=== PATIENT | male | born 1935 | race Caucasian/White ===

== ENCOUNTER 2017-08-01 05:39 | Inpatient (IN) | payer OTHER, MEDICARE ==
[~2017-08-01] VITALS: Ht 180.3 cm; Wt 112.2 kg
[~2017-08-01 05:39] MED LIST: ASPIRIN CHILDRE81 MG PO; ASPIRIN81 M4 PO; CO-Q-10 100 MG-1 SGL PO; COUMADIN 3 MG TA3 MG PO; CRESTOR10 M1 PO; FINASTERIDE5 MG PO; FLOMAX0.4 M1 PO; FLU VACCINE 0.0.5 ML IM; HEPARIN-D525000 UNI1 IV; ISOSORBIDE MONO60 MG PO; LASIX40 M1 PO; LISINOPRIL10 M1 PO; LOPRESSOR 12.12.5 MG PO; METFORMIN HCL500 MG PO; METOCLOPRAMIDE10 MG PO; NATURAL IRON65 MG PO; NEXIUM40 M1 PO; PRINIVIL 5MG5 MG PO; RANEXA500 M1 PO; TOPROL XL25 M1 PO; VESICARE10 MG PO; VITAMIN B-121000 MCG PO; WARFARIN SODIUM6 MG PO
--- NOTE | 2017-08-01 06:11 | ED DYSPNEA/ASTHMA COMPLAINT ---
History of Present Illness General Chief Complaint: Dyspnea (COPD, CHF, Other) Stated Complaint: "IM HAVING DIFFICULTY BREATHING" SPO2 82% Source: patient, old records Exam Limitations: no limitations Vital Signs & Intake/Output Vital Signs & Intake/Output Vital Signs Date Time Temp Pulse Resp B/P B/P Pulse O2 O2 Flow FiO2 Mean Ox Delivery Rate 08/01 0615 95 Nasal 3.0L Cannula 08/01 0601 98.4 84 24 124/85 95 Nasal 3.0L Cannula Allergies Coded Allergies: NO KNOWN ALLERGIES (08/28/11) Reconcile Medications Aspirin (Aspirin*) 81 MG TAB.CHEW 81 MG PO DAILY [facility] Coenzyme Q10/Vitamin E (Co-Q-10 100 MG-1 Iu) 1 SGL SGL 1 SGL PO DAILY SUPPLEMENT (Reported) Cyanocobalamin (Vitamin B-12) (Unknown Strength) TAB (Unknown Dose) PO DAILY SUPPLEMENT (Reported) Esomeprazole (Nexium) 40 MG CAPSULE.DR 1 CAP PO DAILY ACID REFLUX (Reported) FERROUS SULFATE (IRON) 325 MG (65 MG IRON) TABLET 1 TAB PO DAILY SUPPLEMENT ( Reported) Finasteride 5 MG TABLET 1 TAB PO DAILY PROSTATE (Reported) Furosemide (Lasix) 40 MG TABLET 1 TAB PO DAILY diuretic Heparin Sodium,Porcine/D5w (Heparin-D5w 25,000 Unit/500 Ml) 25,000 UNIT/500 ML ( 50 UNIT/ML) IV.SOLN 25,000 UNITS IV ONCE cardiac cath Isosorbide Mononitrate [address] 1 TAB PO DAILY CHEST PAIN (Reported) Lisinopril 10 MG TABLET 1 TAB PO DAILY [facility] Metoprolol Succ XL (Toprol XL) 25 MG TAB 25 MG PO DAILY [facility] Ranolazine (Ranexa) 1,000 MG TAB.ER.12H 1 TAB PO BID CHEST PAIN (Reported) Rosuvastatin Calcium (Crestor) 10 MG TABLET 1 TAB PO DAILY CHOLESTEROL ( Reported) Solifenacin Succinate (Vesicare) 10 MG TABLET 1 TAB PO DAILY BLADDER ( Reported) TAMSULOSIN HCL (Tamsulosin Hydrochloride) 0.4 MG CAP.ER.24H 1 CAP PO DAILY PROSTATE (Reported) Core Measure Meds Pre-Hospital coumadin Triage Nurses Notes Reviewed? yes Onset: 3 days Duration: day(s):, continues in ED, getting worse Timing: recent history Severity: moderate, severe Activities at Onset: activity Prior Episodes/Possible Cause: occasional episodes Modifying Factors: Improves With: rest. Worsens With: movement. Associated Symptoms: cough, edema, weakness HPI: 3 days prior to admission patient complains of increasing shortness of breath especially with exertion improved with rest. He also complains of productive cough of green sputum. Several hours prior to admission he was unable to sleep in his recliner with worsening shortness of breath. He denies fever chills nausea vomiting diarrhea abdominal pain chest pain headache dysuria rash bleeding. Past History Travel History Traveled to [place] past 21 day No Medical History Any Pertinent Medical History? 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 Relation not specified for: *No pertinent family history Hx Contributory? Yes Review of Systems Review of Systems Constitutional: Reports: no symptoms. EENTM: Reports: no symptoms. Respiratory: Reports: see HPI, cough, short of breath. Cardiovascular: Reports: no symptoms. GI: Reports: no symptoms. Genitourinary: Reports: no symptoms. Musculoskeletal: Reports: no symptoms. Skin: Reports: no symptoms. Neurological/Psychological: Reports: no symptoms. Hematologic/Endocrine: Reports: no symptoms. Immunologic/Allergic: Reports: no symptoms. All Other Systems: Reviewed and Negative Physical Exam Physical Exam General Appearance: well developed/nourished, alert, awake, anxious, moderate distress, obese Head: atraumatic, normal appearance Eyes: Bilateral: normal appearance, PERRL, EOMI. Ears, Nose, Throat: normal pharynx, normal ENT inspection, hearing grossly normal Neck: normal inspection, supple, full range of motion, no midline tenderness Respiratory: chest non-tender, decreased breath sounds, crackles, respiratory distress Cardiovascular: regular rate/rhythm, normal peripheral pulses, norml femoral pulses equa Peripheral Pulses: 4+ carotid (R), 4+ carotid (L) Gastrointestinal: normal bowel sounds, soft, non-tender, no organomegaly Extremities: normal inspection, normal capillary refill, normal range of motion, pedal edema Neurologic/Psych: no motor/sensory deficits, awake, alert, oriented x 3, normal mood/affect, thoracic surgeon II-XII nml as tested Skin: intact, normal color, warm/dry Lymphatic: no anterior cervical richardson Core Measures ACS in differential dx? Yes No ASA d/t Pharmacological CI CVA/TIA Diagnosis No Sepsis Present: No Sepsis Focused Exam Completed? No Progress Differential Diagnosis: asthma, bronchitis, CHF, COPD, pneumonia Plan of Care: Orders Procedure Date/time Status Regular Diet 08/01 B Active Patient Data 08/01 06 Active OXYGEN SETUP (GEN) 08/01 651 Active Saline Lock 08/01 651 Active Admit to inpatient 08/01 06 Active Vital Signs 08/01 651 Active Activity/Ambulation 08/01 06 Active Code Status 08/01 06 Active TROPONIN LEVEL 08/01 605 Complete PARTIAL THROMBOPLASTIN TIME 08/01 605 Complete PROTHROMBIN TIME 08/01 605 Complete COMPREHENSIVE METABOLIC PANEL 08/01 605 Complete CBC WITHOUT DIFFERENTIAL 08/01 605 Complete B-TYPE NATRIURETIC PEP (BNP) 08/01 06 Complete EKG 08/01 0547 Active Laboratory Tests 08/01/17 0607: Anion Gap 11, Estimated GFR > 60, BUN/Creatinine Ratio 15.0, Glucose 221 H, Calcium 9.1, Total Bilirubin 1.3, AST 16 L, ALT 20 L, Alkaline Phosphatase 56, Troponin I 0.03, Oxc-K-Shlpgvsipls Pept 3850 H, Total Protein 7.3, Albumin 4.0, Globulin 3.3, Albumin/Globulin Ratio 1.2, PT 22.9 H, INR 2.20 H, APTT 42 H, CBC w Diff MAN DIFF ORDERED, RBC 4.45 L, MCV 92.9, MCH 30.4, RDW 16.2 H, MPV 9.4, Gran % 84.4 H, Lymphocytes % 5.4 L, Monocytes % 9.7 H, Eosinophils % 0.3 , Basophils % 0.2, Absolute Granulocytes 9.2 H, Segmented Neutrophils 84 H, Absolute Lymphocytes 0.6 L, Lymphocytes 3 L, Monocytes 13 H, Absolute Monocytes 1.1 H, Absolute Eosinophils 0, Absolute Basophils 0, Platelet Estimate ADEQUATE, Polychromasia 1+, Hypochromic-Microcytic 1+, Ovalocytes FEW, Stomatocytes FEW, PUBS MCHC 32.7 L, Fld Total RBCs Counted 100 Diagnostic Imaging: Viewed by Me: Radiology Read. Discussed w/RAD: Radiology Read. CXR Impression: Mild to moderate interstitial pulmonary edema. Small left pleural effusion and bibasilar airspace opacities. Initial ED EKG: LBBB Prior EKG: unchanged Rhythm Strip: normal sinus rhythm Departure Departure Disposition: STILL A PATIENT Condition: Fair Clinical Impression Primary Impression: CHF (congestive heart failure) Referrals: Parish Gar MD (PCP/Family) Departure Forms: Customer Survey General Discharge Information Admission Note Spoke With: Mickey RODRIGUEZ,Bethany Documentation of Exam: Documentation of any treatments & extenuating circumstances including Concerns Regarding Discharge (functional status, medication knowledge or non-compliance, living conditions, etc.) that warrant an admission rather than observation: Supplemental oxygen IV diuresis medication adjustment serial lab exam cardiac monitoring cardiac rehabilitation continuing care discharge planning Critical Care Note Critical Care Note Critical Care Time: non-applicable
[2017-08-01 06:22] LABS: ABSOLUTE BASOPHIL COUNT 0 /CUMM (0.0-0.2); ABSOLUTE EOSINOPHIL COUNT 0 /CUMM (0.0-0.7); ABSOLUTE GRANULOCYTE CT 9.2 /CUMM (1.4-6.5); ABSOLUTE LYMPH COUNT 0.6 /CUMM (1.2-3.4); ABSOLUTE MONOCYTE COUNT 1.1 /CUMM (0.10-0.60); BASOPHIL % 0.2 % (0.0-2.0); EOSINOPHIL % 0.3 % (0-5); GRANULOCYTE % 84.4 % (42.2-75.2); HEMATOCRIT 41.4 % (42-52); MEAN CORPUSCULAR HGB 30.4 PG (27.0-31.0); MEAN CORPUSCULAR HGB CONC 32.7 G/DL (33.0-37.0); MEAN CORPUSCULAR VOLUME 92.9 FL (80.0-94.0); MEAN PLATELET VOLUME 9.4 FL (7.4-10.4); PLATELET COUNT 261 /CUMM (130-400); RBC DISTRIBUTION WIDTH 16.2 % (11.5-14.5); RED BLOOD CELL CT 4.45 /CUMM (4.70-6.10); WHITE BLOOD CELL COUNT 10.9 /CUMM (4.8-10.8)
[2017-08-01 06:27] LABS: PT 22.9 SEC (9.4-12.5); PTT 42 SEC (25-37)
--- NOTE | 2017-08-01 06:40 | RADIOLOGY REPORT ---
XR PORTABLE CHEST CLINICAL INFORMATION: Shortness of breath and rales. COMPARISON: Chest x-ray April 24, 2017. TECHNIQUE: Portable frontal view of the chest was obtained. FINDINGS: Median sternotomy wires and multiple surgical clips projecting over the mediastinum. There is central vascular congestion with diffuse interstitial opacities and a few curly B lines in the periphery suggesting mild to moderate interstitial pulmonary edema. Small left pleural effusion. Bibasilar airspace opacities. Cardiac silhouette is enlarged and unchanged. No acute osseous findings. Old healed right fourth rib fracture. IMPRESSION: Mild to moderate interstitial pulmonary edema. Small left pleural effusion and bibasilar airspace opacities.
--- NOTE | 2017-08-01 07:45 | History & Physical ---
Keven Randall 08/01/17 0743: General Information and HPI MD Statement: I have seen and personally examined SAM CROOK JR and documented this H&P. The patient is a 82 year old M who presented with a patient stated chief complaint of [dyspnea]. Source of Information: patient, old records Exam Limitations: no limitations History of Present Illness: Mr Crook is an 82 yr old obese, DM and former smoker gentleman presneted with worsening shortness of breath of 3-4 daus duration. He has a PMHx of CAD s/p CABG w/ left ventricular dysfunction ( dx'ed 20 yrs ago), recent hospitalization for acute decompensation of CHF during which he was found to have decreased LVEF of 35-40% and wall motion abnormality at apex; patient was transferred to for Cardiac catheterization; due to " technical/anatomical difficulties" he did not have stent placement and was discharged home on . About one week after patient followed up with Dr. Gertrudis snell in his office; according to patient, director of digital technology was satisfied with his a status; lisinopril was stopped and patient was presumably started on Corlenor ??. He has been at his normal state of health; at his baseline reason active individual (> 4ME physical activity), lives alone, independent; Compliant with his medication. During the past 3-4 days patient became short of breath; mainly exertional; initially short of breath was improving with resting, but for the past 24 hours he has been short of breath even at rest. His shortness of breath limited his physical activity (<4ME); patient noticed worsening swelling of bilateral lower extremities; + orthopnea (has been sleeping in a recliner Jack up or sitting position for the past 24-48 hours), increase in abdominal girth, ?? Weight gain ( last week he rates 265lb), dry cough and subjective wheezing. Patient denies: Chest pain, excess sweating and feeling clammy , palpitation, fever/shaking chills, GI/ symptoms, lightheadedness, dizziness. 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 Patient was found hypoxic to 80%; started on oxygen 4 L; blood pressure 124/85 In the emergency department: Vital signs 124/85; respiration 24; pulse 84 Fluid balance: -1300 mL after receiving 40 mg IV Lasix push Allergies/Medications Allergies: Coded Allergies: NO KNOWN ALLERGIES (NONE 08/01/17) Home Med list Aspirin (Aspirin*) 81 MG TAB.CHEW 81 MG PO DAILY [facility] Coenzyme Q10/Vitamin E (Co-Q-10 100 MG-1 Iu) 1 SGL SGL 1 SGL PO DAILY SUPPLEMENT (Reported) Cyanocobalamin (Vitamin B-12) (Unknown Strength) TAB (Unknown Dose) PO DAILY SUPPLEMENT (Reported) Esomeprazole (Nexium) 40 MG CAPSULE.DR 1 CAP PO DAILY ACID REFLUX (Reported) FERROUS SULFATE (IRON) 325 MG (65 MG IRON) TABLET 1 TAB PO DAILY SUPPLEMENT ( Reported) Finasteride 5 MG TABLET 1 TAB PO DAILY PROSTATE (Reported) Furosemide (Lasix) 40 MG TABLET 1 TAB PO DAILY diuretic Isosorbide Mononitrate [address] 1 TAB PO DAILY CHEST PAIN (Reported) Metoprolol Succ XL (Toprol XL) 25 MG TAB 25 MG PO DAILY [facility] Ranolazine (Ranexa) 1,000 MG TAB.ER.12H 1 TAB PO BID CHEST PAIN (Reported) Rosuvastatin Calcium (Crestor) 10 MG TABLET 1 TAB PO DAILY CHOLESTEROL ( Reported) Solifenacin Succinate (Vesicare) 10 MG TABLET 1 TAB PO DAILY BLADDER ( Reported) TAMSULOSIN HCL (Tamsulosin Hydrochloride) 0.4 MG CAP.ER.24H 1 CAP PO DAILY PROSTATE (Reported) Compliance With Home Meds: GOOD Past History Travel History Traveled to [place] past 21 day No Medical History Neurological: NONE EENT: NONE Cardiovascular: CHF, hypertension, hyperlipidemia Respiratory: pneumonia Gastrointestinal: constipation Hepatic: NONE Renal: NONE Musculoskeletal: NONE Psychiatric: NONE Endocrine: diabetes Blood Disorders: DVT, PE Cancer(s): NONE 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 Relation not specified for: *No pertinent family history Psychosocial History Services at Home: None Functional Ability ADLs Independent: dressing, eating, toileting, bathing. Ambulation: independent IADLs Independent: shopping, housework, finances, food prep, telephone, transportation , medication admin. Review of Systems Review of Systems Constitutional: Reports: see HPI. Cardiovascular: Reports: edema, orthopena, peripheral edema. Denies: chest pain, palpitations, syncope. Respiratory: Reports: cough, orthopnea, short of breath, wheezing. GI: Reports: see HPI. Genitourinary: Reports: no symptoms. Musculoskeletal: Reports: no symptoms. Skin: Reports: no symptoms. Neurological/Psychological: Reports: no symptoms, see HPI, anxiety, ataxia, cognitive dysfunction, confusion , depressed, dementia, emotional problems, headache, numbness, paresthesia, pre- existing deficit, petit mal seizures, tingling, tremors, tonic-clonic seizures, unable to move lower ext, unable to move upper ext, weakness, other. All Other Systems: Reviewed and Negative Exam & Diagnostic Data Last 24 Hrs of Vital Signs/I&O Vital Signs Date Time Temp Pulse Resp B/P B/P Pulse O2 O2 Flow FiO2 Mean Ox Delivery Rate 08/01 0910 99.4 90 20 141/76 94 Nasal Cannula 08/01 0750 99.4 86 20 138/70 96 Nasal Cannula 08/01 0615 95 Nasal 3.0L Cannula 08/01 0601 98.4 84 24 124/85 95 Nasal 3.0L Cannula Intake & Output 08/01 1600 08/01 0800 08/01 0000 Intake Total Output Total 600 700 Balance -600 -700 Output, Urine 600 700 Patient 230 lb Weight Weight Estimated Measurement Method Physical Exam General Appearance Alert, Oriented X3, Cooperative, Moderate Distress Skin No Rashes Neck +/- JVD Cardiovascular Normal S1, Normal S2, Gallops, S3 Lungs coarse crackle basilar Abdomen Soft, No HJ ref Neurological Normal Gait, Normal Speech, Strength at 5/5 X4 Ext, Normal Tone, Sensation Intact, Cranial Nerves 3-12 NL, Reflexes 2+ Extremities +2 pitting peripheral edema Vascular Normal Pulses Rectal Guiac Negative Body Front and Back (Adult) 1) Bilateral 2+ pitting edema Last 24 Hrs of Labs/Louis: Laboratory Tests 08/01/17 0607: Anion Gap 11, Estimated GFR > 60, BUN/Creatinine Ratio 15.0, Glucose 221 H, Calcium 9.1, Total Bilirubin 1.3, AST 16 L, ALT 20 L, Alkaline Phosphatase 56, Troponin I 0.03, Etu-T-Fkqziqsbpzq Pept 3850 H, Total Protein 7.3, Albumin 4.0, Globulin 3.3, Albumin/Globulin Ratio 1.2, PT 22.9 H, INR 2.20 H, APTT 42 H, CBC w Diff MAN DIFF ORDERED, RBC 4.45 L, MCV 92.9, MCH 30.4, RDW 16.2 H, MPV 9.4, Gran % 84.4 H, Lymphocytes % 5.4 L, Monocytes % 9.7 H, Eosinophils % 0.3 , Basophils % 0.2, Absolute Granulocytes 9.2 H, Segmented Neutrophils 84 H, Absolute Lymphocytes 0.6 L, Lymphocytes 3 L, Monocytes 13 H, Absolute Monocytes 1.1 H, Absolute Eosinophils 0, Absolute Basophils 0, Platelet Estimate ADEQUATE, Polychromasia 1+, Hypochromic-Microcytic 1+, Ovalocytes FEW, Stomatocytes FEW, PUBS MCHC 32.7 L, Fld Total RBCs Counted 100 Diagnostic Data EKG Results Normal sinus rate and rhythm 86 beats per minutes Left axis deviation and old, unchanged left bundle-branch block First-degree AV block CXR Results Central venous congestion and diffuse interstitial opacities and Nicholas B-lines in the periphery suggestive of pulmonary edema Assessment/Plan Assessment: 82-year-old gentleman with past medical history of known coronary artery disease and congestive heart failure with reduced ejection fraction was admitted for acute decompensation of HFrEF. Pertinent data Chest x-ray: Suggestive of pulmonary congestion and pulmonary edema Peripheral swelling and edema WBC 10.9 with left shift no bandemia; H&H: 13.5/41; INR 2.2 Sodium 142 potassium 4.4, chloride 100 HCO3 30 BUN 12 and creatinine 0.8 AST 12 ALT 20 and proBNP 3850 Wells score: low risk List of active problems #1 hypoxic respiratory failure #2 acute decompensated heart failure. #3 known history of coronary artery disease #4 hypertension #5 history of PE status post IVC and A/C on Coumadin #6 gastric bypass and hyperlipidemia Explanation The cause of hypoxic respiratory failure in this patient is most likely to be related to acute decompensation of CHF in the presence of multiple findings in history and physical exam that increases the likelihood of acute decompensated CHF (e.g history of prior admission to CHF decompensation, pulmonary edema, +/- JVD, S 3, no change in EKG or cardiac enzymes, significant rise in proBNP). Due to his known history of coronary artery disease, acute coronary syndrome is to be ruled out. Another possible contributing factor to his decompensation probably is patient's lack of compliance to restricted salt diet which needs to be addressed. Upper respiratory tract infections or another common causes of CHF decompensation an elderly patient in the season which needs to be evaluated. Plan * Admit to telemetry for continuous monitoring * No need for echo for now * IV Lasix 40 twice a day; 7:30 am and 4:30 pm * Trend troponin and EKG 3 sets to rule out acute coronary syndrome * Continue Ranexa 1000 mg tablet extended release Q12 * Continue imdur 60 mg by mouth daily * Continue metoprolol succinate 25 mg by mouth daily * Restrict ins and outs; CHF diet; daily weights; fluid restriction 1000ml * Continue aspirin 81 mg daily * Coumadin dose needs to be adjusted based on daily INR * Omeprazole 40 mg by mouth daily * Tamsulisin .4 mg by mouth daily * Vesicare 10 mg by mouth daily * Crestor 10 mg by mouth daily * Finasteride 5 mg by mouth daily * TRC [id number] as needed O2 setting targets O2 saturation about 90-92% * If oxygen demands increases get an ABG and start patient on BiPAP * rapid flu test * Consult cardiology-Dr. Howard's group Housekeeping DVT prophylaxis-Coumadin; Alps FC As Ranked By This Provider Problem List: 1. Congestive heart failure 2. DVT prophylaxis Core Measures/Misc (04/20) Acute Coronary Syndrome ACS Diagnosis: No Congestive Heart Failure Congestive Heart Failure Diagnosis Yes Last Known EF % 35 Cerebrovascular Accident CVA/TIA Diagnosis: No VTE (View Protocol) VTE Risk Factors CHF or Resp Failure No Mechanical VTE Prophylaxis d/t N/A MechProphylax Ordered No VTE Pharm Prophylaxis d/t NA PharmProphylax ordered Sepsis (View protocol) Sepsis Present: No Resident Review Statement Resident Statement: examined this patient, discussed with internal medicine veterinary technician, agreed with internal medicine veterinary technician, discussed with family, reviewed EMR data (avail), discussed with nursing , discussed with case mgmt, reviewed images, amended to note Josy Wright MD 08/01/17 1336: Attending Review Statement Attending Statement Attending MD Statement: examined this patient, discuss w/resident/PA/DELI DEPARTMENT MANAGER, agreed w/resident/PA/DELI DEPARTMENT MANAGER, reviewed EMR data (avail) Attending Assessment/Plan: 82M PMH coronary artery disease with prior CABG, ischemic cardiomyopathy with recent new left bundle branch block which triggered cardiac catheterization (2016) showing patent arteries with occlusion of graft to be managed medically, history of PE on Coumadin with prior IVC filter, diabetes, hypertension, and hyperlipidemia admitted with shortness of breath on exertion and fluid overload in the setting of acute on chronic systolic CHF. Admitted Friday morning, diuresed well on Friday, seen by cardiology. Will need several days of diuresis. Plan: Follow I/O, BEP, cardiology recommendations. Will restart Entresto.
[2017-08-01 11:25] VITALS: BP 132/90
--- NOTE | 2017-08-01 12:45 | Cons- Cardiology ---
General Information and HPI Consulting Request Date of Consult: 08/01/17 Requested By: Bethany Arevalo MD Reason for Consult: CHF Source of Information: patient, old records History of Present Illness: This is a pleasant 82-year-old male with a past medical history of coronary artery disease with prior CABG, ischemic cardiomyopathy with recent new left bundle branch block which triggered cardiac catheterization (04/2017) showing severe three-vessel [place] coronary artery disease with patent bifurcating saphenous vein graft to the 2nd obtuse marginal and occluded saphenous vein graft to the distal right coronary artery with no obvious evidence of internal mammary artery graft ( medical management advised), history of a pulmonary embolism on Coumadin with prior IVC filter, diabetes, hypertension, and hyperlipidemia who presents to [facility] with approximately 48 hours of worsening lower extremity edema as well as worsening shortness of breath ; moderate in intensity without associated chest pain. He did report some orthopnea. Denies any headache, slurring of speech, palpitations, or syncope. He believes he is improving after receiving Lasix. Allergies/Medications Allergies: Coded Allergies: NO KNOWN ALLERGIES (NONE 08/01/17) Home Med List: Aspirin (Aspirin*) 81 MG TAB.CHEW 81 MG PO DAILY [facility] Coenzyme Q10/Vitamin E (Co-Q-10 100 MG-1 Iu) 1 SGL SGL 1 SGL PO DAILY SUPPLEMENT (Reported) Cyanocobalamin (Vitamin B-12) (Unknown Strength) TAB (Unknown Dose) PO DAILY SUPPLEMENT (Reported) Esomeprazole (Nexium) 40 MG CAPSULE.DR 1 CAP PO DAILY ACID REFLUX (Reported) FERROUS SULFATE (IRON) 325 MG (65 MG IRON) TABLET 1 TAB PO DAILY SUPPLEMENT ( Reported) Finasteride 5 MG TABLET 1 TAB PO DAILY PROSTATE (Reported) Furosemide (Lasix) 40 MG TABLET 1 TAB PO DAILY diuretic Isosorbide Mononitrate [address] 1 TAB PO DAILY CHEST PAIN (Reported) Metoprolol Succ XL (Toprol XL) 25 MG TAB 25 MG PO DAILY [facility] Ranolazine (Ranexa) 1,000 MG TAB.ER.12H 1 TAB PO BID CHEST PAIN (Reported) Rosuvastatin Calcium (Crestor) 10 MG TABLET 1 TAB PO DAILY CHOLESTEROL ( Reported) Solifenacin Succinate (Vesicare) 10 MG TABLET 1 TAB PO DAILY BLADDER ( Reported) TAMSULOSIN HCL (Tamsulosin Hydrochloride) 0.4 MG CAP.ER.24H 1 CAP PO DAILY PROSTATE (Reported) Current Medications: Current Medications Sig/Franki Start time Last Medication Dose Route Stop Time Status Admin Aspirin 81 MG DAILY 08/01 1000 AC PO Atorvastatin Calcium 40 MG 1700 08/01 1700 AC PO Doxazosin Mesylate 1 MG DAILY 08/01 1000 AC PO Finasteride 5 MG DAILY 08/01 1000 AC PO Furosemide 40 MG 7:30 AM, & 4:30 PM 08/02 0730 AC IV Furosemide 0 .STK-MED ONE 08/01 1010 DC IV Furosemide 40 MG ONCE ONE 08/01 0945 DC 08/01 IV PUSH 08/01 0946 1010 Furosemide 40 MG ONCE ONE 08/01 0615 DC 08/01 IV 08/01 0616 0612 Furosemide 0 .STK-MED ONE 08/01 0612 DC IV Isosorbide 60 MG DAILY 08/01 1000 AC Mononitrate PO Omeprazole 0 .STK-MED ONE 08/01 1010 DC PO Omeprazole 40 MG DAILY AC 08/01 0948 AC 08/01 PO 1010 Oxybutynin Chloride 5 MG BID 08/01 1000 AC PO Ranolazine 1,000 MG Q12 08/01 1000 AC PO Review of Systems Review of Systems: Review of systems as per HPI. The remainder of a 10 point review of systems was reviewed and was otherwise negative. Past History Travel History Traveled to [place] past 21 day No Medical History Blood Transfusion Hx: Yes Neurological: NONE EENT: NONE Cardiovascular: CHF, hypertension, hyperlipidemia Respiratory: pneumonia Gastrointestinal: constipation Hepatic: NONE Renal: NONE Musculoskeletal: NONE Psychiatric: NONE Endocrine: diabetes Blood Disorders: DVT, PE Cancer(s): NONE COOKEE/Reproductive: NONE Surgical History Surgical History: CABG, IVC FILTER Family History Relations & Conditions If Any: FATHER (heart disease). Relation not specified for: *No pertinent family history Psychosocial History Where Do You Live? Home Services at Home: None Smoking Status: Former Smoker Functional Ability ADLs Independent: dressing, eating, toileting, bathing. Ambulation: independent IADLs Independent: shopping, housework, finances, food prep, telephone, transportation , medication admin. Exam & Diagnostic Data Vital Signs and I&O Vital Signs Date Time Temp Pulse Resp B/P B/P Pulse O2 O2 Flow FiO2 Mean Ox Delivery Rate 08/01 1145 94 Nasal 3.0L Cannula 08/01 1125 97.5 90 22 132/90 95 12/29 0910 99.4 90 20 141/76 94 Nasal Cannula 08/01 0750 99.4 86 20 138/70 96 Nasal Cannula 08/01 0615 95 Nasal 3.0L Cannula 08/01 0601 98.4 84 24 124/85 95 Nasal 3.0L Cannula Intake & Output 08/01 1600 08/01 0800 08/01 0000 07/31 1600 07/31 0800 07/31 0000 Intake Total Output Total 600 700 Balance -600 -700 Output, Urine 600 700 Patient 230 lb 230 lb Weight Weight Estimated Measurement Method Physical Exam: General: no apparent distress. Alert. On nasal cannula oxygen. Eyes: No obvious scleral icterus. HEENT: Mild jugular venous distention Cardiovascular: Normal intensity S1/S2. Regular Respiratory: Mildly decreased air entry bilaterally Abdomen: Soft, nontender with no guarding or rebound tenderness. Musculoskeletal: No clubbing or cyanosis noted; 1+ lower extremity edema Skin: warm Neurologic: No gross focal deficits noted. Labs/Louis Results: Laboratory Tests 08/01 06 Chemistry Sodium (137 - 145 mmol/L) 142 Potassium (3.5 - 5.1 mmol/L) 4.4 Chloride (98 - 107 mmol/L) 100 Carbon Dioxide (22 - 30 mmol/L) 30 Anion Gap (5 - 16) 11 BUN (9 - 20 mg/dL) 12 Creatinine (0.7 - 1.2 mg/dL) 0.8 Estimated GFR (>60 ml/min) > 60 BUN/Creatinine Ratio (7 - 25 %) 15.0 Glucose (65 - 99 mg/dL) 221 H Calcium (8.4 - 10.2 mg/dL) 9.1 Total Bilirubin (0.2 - 1.3 mg/dL) 1.3 AST (17 - 59 U/L) 16 L ALT (21 - 72 U/L) 20 L Alkaline Phosphatase (< 127 U/L) 56 Troponin I (<0.11 ng/ml) 0.03 Oyo-R-Umaussmuzet Pept (<125 pg/mL) 3850 H Total Protein (6.3 - 8.2 g/dL) 7.3 Albumin (3.5 - 5.0 g/dL) 4.0 Globulin (1.9 - 4.2 gm/dL) 3.3 Albumin/Globulin Ratio (1.1 - 2.2 %) 1.2 Coagulation PT (9.4 - 12.5 SEC) 22.9 H INR (0.90 - 1.17) 2.20 H APTT (25 - 37 SEC) 42 H Hematology CBC w Diff MAN DIFF ORDERED WBC (4.8 - 10.8 /CUMM) 10.9 H RBC (4.70 - 6.10 /CUMM) 4.45 L Hgb (14.0 - 18.0 G/DL) 13.5 L Hct (42 - 52 %) 41.4 L MCV (80.0 - 94.0 FL) 92.9 MCH (27.0 - 31.0 PG) 30.4 RDW (11.5 - 14.5 %) 16.2 H Plt Count (130 - 400 /CUMM) 261 MPV (7.4 - 10.4 FL) 9.4 Gran % (42.2 - 75.2 %) 84.4 H Lymphocytes % (20.5 - 51.1 %) 5.4 L Monocytes % (1.7 - 9.3 %) 9.7 H Eosinophils % (0 - 5 %) 0.3 Basophils % (0.0 - 2.0 %) 0.2 Absolute Granulocytes (1.4 - 6.5 /CUMM) 9.2 H Segmented Neutrophils (42.2 - 75.2 %) 84 H Absolute Lymphocytes (1.2 - 3.4 /CUMM) 0.6 L Lymphocytes (20.5 - 51.1 %) 3 L Monocytes (1.7 - 9.3 %) 13 H Absolute Monocytes (0.10 - 0.60 /CUMM) 1.1 H Absolute Eosinophils (0.0 - 0.7 /CUMM) 0 Absolute Basophils (0.0 - 0.2 /CUMM) 0 Platelet Estimate (ADEQUATE) ADEQUATE Polychromasia 1+ Hypochromic-Microcytic 1+ Ovalocytes FEW Stomatocytes FEW PUBS MCHC (33.0 - 37.0 G/DL) 32.7 L Other Body Source Fld Total RBCs Counted (%) 100 Diagnostic Data EKG Results Tracing was personally reviewed and shows sinus rhythm at 86 bpm with a left bundle-branch block and PACs CXR Results Mild to moderate interstitial pulmonary edema. Small left pleural effusion and bibasilar airspace opacities. Other Results Telemetry tracings were personally reviewed and shows sinus rhythm with pacs Assessment/Plan Assessment/Plan 1. Acute on chronic systolic heart failure 2. History of ischemic cardiomyopathy and left bundle-branch block with a recent cardiac catheterization (04/2017) showing severe three-vessel [place] coronary artery disease with patent bifurcating saphenous vein graft to the 2nd obtuse marginal and occluded saphenous vein graft to the distal right coronary artery with no obvious evidence of internal mammary artery graft (medical management advised) 3. History of coronary artery disease with remote CABG 4. History of pulmonary embolism on Coumadin 5. History of diabetes mellitus 6. History of hypertension and hyperlipidemia The patient presents with evidence of acute on chronic systolic heart failure without evidence of acute coronary syndrome. He is currently hemodynamically stable. Agree with continued IV diuresis with the IV Lasix b.i.d. while monitoring strict I&Os, daily weights, and metabolic panels. It appears the patient was on Entresto as an outpatient for his cardiomyopathy and this should be resumed. His other outpatient cardiac medications should also be continued including his beta-juan. Continue on aspirin and statin along with anticoagulation for history of pulmonary embolism. If his ejection fraction does not improve in the future after maximization of his anti myopathic regimen he may be a candidate for biventricular AICD. Familia Daniel MD [facility] Consult Acknowledgment - Thank you for your consult request.
[2017-08-01 13:11] VITALS: BP 120/62
--- NOTE | 2017-08-01 13:37 | Admission Certification ---
Admission Certification Certification Statement - As attending physician, I certify that at the time of - admission, based on clinical presentation, severity of - symptoms, need for further diagnostic testing and - therapeutic interventions, and risk of adverse outcomes - without in-hospital treatment, in my clinical assessment, - this patient requires an acute hospital stay for a minimum - of two nights or longer. I have also considered psychsocial - factors such as support system, advanced age, financial - issues, cognitive issues, and failed out-patient treatments, - past re-admission history, safety of patient, and lack of - compliance as applicable. Specific rationale supporting this admission is: Acute CHF with dyspnea at rest
--- NOTE | 2017-08-01 13:59 | Event Note ---
Event Note Event Note: Patient is on Coumadin, following Dr. [facility]. He is on 10 mgs of Coumadin Friday to Friday and 5 mgs Friday/Friday.
[2017-08-01 23:00] VITALS: BP 114/50
[2017-08-02 06:52] VITALS: BP 124/70
[2017-08-02 08:10] LABS: ABSOLUTE BASOPHIL COUNT 0 /CUMM (0.0-0.2); ABSOLUTE EOSINOPHIL COUNT 0.1 /CUMM (0.0-0.7); ABSOLUTE GRANULOCYTE CT 4.7 /CUMM (1.4-6.5); ABSOLUTE LYMPH COUNT 0.8 /CUMM (1.2-3.4); ABSOLUTE MONOCYTE COUNT 0.7 /CUMM (0.10-0.60); BASOPHIL % 0.4 % (0.0-2.0); HEMATOCRIT 36.8 % (42-52); MEAN CORPUSCULAR HGB 30.7 PG (27.0-31.0); MEAN CORPUSCULAR HGB CONC 32.7 G/DL (33.0-37.0); MEAN CORPUSCULAR VOLUME 93.8 FL (80.0-94.0); MEAN PLATELET VOLUME 9.6 FL (7.4-10.4); PLATELET COUNT 196 /CUMM (130-400); RBC DISTRIBUTION WIDTH 16.4 % (11.5-14.5); RED BLOOD CELL CT 3.93 /CUMM (4.70-6.10); WHITE BLOOD CELL COUNT 6.3 /CUMM (4.8-10.8)
--- NOTE | 2017-08-02 08:28 | PN- Housestaff ---
See Addendum Subjective Follow-up For: acute on chronic systolic heart failure Subjective: Patient seen and examined. Sitting comfortably in bed. Offers no complaints. No overnight acute events. Reports improvement in shortness of breath no fevers no chills nausea yesterday Review of Systems Constitutional: Reports: see HPI. Objective Last 24 Hrs of Vital Signs/I&O Vital Signs Date Time Temp Pulse Resp B/P B/P Pulse O2 O2 Flow FiO2 Mean Ox Delivery Rate 08/02 0909 95 116/70 08/02 0908 95 116/70 08/02 0906 95 116/70 08/02 0800 Nasal 2.0L Cannula 08/02 0652 98.4 82 22 124/70 94 Nasal Cannula 08/01 2300 97.8 81 20 114/50 95 Nasal 3.0L Cannula 08/01 2134 94 Nasal 3.0L Cannula 08/01 2055 88 114/50 08/01 1448 88 120/62 08/01 1447 88 120/62 08/01 1349 Nasal 2.0L Cannula 08/01 1311 98.1 88 22 120/62 95 Nasal 3.0L Cannula 08/01 1145 94 Nasal 3.0L Cannula Intake & Output 08/02 1600 08/02 0800 08/02 0000 Intake Total 480 360 Output Total 300 300 Balance 180 60 Intake, Oral 480 360 Output, Urine 300 300 Patient 251 lb Weight Weight Chair scale Measurement Method Physical Exam General Appearance: Alert, Oriented X3, Cooperative Cardiovascular: Normal S1, Normal S2 Lungs: Normal Air Movement, few ronchi decreased wheezes Neurological: Normal Gait Current Medications: Current Medications Sig/Franki Start time Last Medication Dose Route Stop Time Status Admin Aspirin 81 MG DAILY 08/01 1000 AC 08/02 PO 0908 Atorvastatin Calcium 40 MG 1700 08/01 1700 AC 08/01 PO 1649 Doxazosin Mesylate 1 MG DAILY 08/01 1000 AC 08/02 PO 0908 Finasteride 5 MG DAILY 08/01 1000 AC 08/02 PO 0909 Furosemide 40 MG 7:30 AM, & 4:30 PM 08/02 0730 AC 08/02 IV 0732 Isosorbide 60 MG DAILY 08/01 1000 AC 08/02 Mononitrate PO 0908 Omeprazole 40 MG DAILY AC 08/01 0948 AC 08/02 PO 0516 Oxybutynin Chloride 5 MG BID 08/01 1000 AC 08/02 PO 0908 Ranolazine 1,000 MG Q12 08/01 1000 AC 08/02 PO 0909 Sacubitril/Valsartan 1 TAB BID 08/02 1000 AC 08/02 PO 0910 Warfarin Sodium 10 MG COUMADIN 1700 08/01 1700 DC 08/01 PO 08/01 0939 1649 Last 24 Hrs of Lab/Louis Results Last 24 Hrs of Labs/Mics: Laboratory Tests 08/02/17 0627: Anion Gap 8, Estimated GFR > 60, BUN/Creatinine Ratio 15.6, PT 20.0 H, INR 1.92 H, CBC w Diff NO MAN DIFF REQ, RBC 3.93 L, MCV 93.8, MCH 30.7, RDW 16.4 H, MPV 9.6, Gran % 74.0, Lymphocytes % 13.1 L, Monocytes % 11.5 H, Eosinophils % 1.0, Basophils % 0.4, Absolute Granulocytes 4.7, Absolute Lymphocytes 0.8 L, Absolute Monocytes 0.7 H, Absolute Eosinophils 0.1, Absolute Basophils 0, PUBS MCHC 32.7 L 08/01/17 1950: Troponin I 0.04 08/01/17 1443: Troponin I 0.04 Assessment/Plan Assessment: 82-year-old gentleman with past medical history of known coronary artery disease and congestive heart failure with reduced ejection fraction was admitted for acute decompensation of HFrEF. #1 hypoxic respiratory failure in setting of acute decompensated heart failure. The cause of hypoxic respiratory failure in this patient is most likely to be related to acute decompensation of CHF in the presence of multiple findings in history and physical exam that increases the likelihood of acute decompensated CHF (e.g history of prior admission to CHF decompensation, pulmonary edema, +/- JVD, S 3, no change in EKG or cardiac enzymes, significant rise in proBNP) * Diuresis with the IV Lasix b.i.d. * Monitor strict I&Os, daily weight,fluid restriction 1000ml * Monitor BEP * Continue Entresto and beta juan * If EJ does not improve in the future after maximization of his anti myopathic regimen he may be a candidate for biventricular AICD. * If oxygen demands increases get an ABG and start patient on BiPAP #History of PE status post IVC * Dose Coumadin according to INR #Chronic medical conditions history of CAD, hypertension, , hyperlipidemia BPH, GERD Continue on aspirin and statin, metoprolor imdur, renxa,Entrsto,tamsulisin, vesicare, finasterdie and Omeprazole #DVT prophylaxis with Coumadin #CODE STATUS full code Problem List: 1. Congestive heart failure Pain Ratin Pain Location: n/a Pain Goal: Pain 4 or less Pain Plan: prn Tomorrow's Labs & Rationales: cbc bep Pain Plan: prn Tomorrow's Labs & Rationales: cbc bep
[2017-08-02 09:06] VITALS: BP 116/70
[2017-08-02 14:39] VITALS: BP 130/76
[2017-08-02 23:07] VITALS: BP 122/58
[2017-08-03 06:46] VITALS: BP 110/60
[2017-08-03 08:28] LABS: PT 18.6 SEC (9.4-12.5)
[2017-08-03 08:31] LABS: ABSOLUTE BASOPHIL COUNT 0 /CUMM (0.0-0.2); ABSOLUTE EOSINOPHIL COUNT 0.1 /CUMM (0.0-0.7); ABSOLUTE LYMPH COUNT 0.9 /CUMM (1.2-3.4); ABSOLUTE MONOCYTE COUNT 0.8 /CUMM (0.10-0.60); BASOPHIL % 0.5 % (0.0-2.0); EOSINOPHIL % 1.5 % (0-5); GRANULOCYTE % 72.7 % (42.2-75.2); HEMATOCRIT 39.5 % (42-52); MEAN CORPUSCULAR HGB 30.9 PG (27.0-31.0); MEAN CORPUSCULAR HGB CONC 33.5 G/DL (33.0-37.0); MEAN CORPUSCULAR VOLUME 92.3 FL (80.0-94.0); MEAN PLATELET VOLUME 9.7 FL (7.4-10.4); PLATELET COUNT 229 /CUMM (130-400); RBC DISTRIBUTION WIDTH 15.9 % (11.5-14.5); RED BLOOD CELL CT 4.28 /CUMM (4.70-6.10); WHITE BLOOD CELL COUNT 6.9 /CUMM (4.8-10.8)
--- NOTE | 2017-08-03 10:12 | PN- Housestaff ---
Maile RODRIGUEZ,Robinson 08/03/17 1012: Subjective Follow-up For: Follow-up acute on chronic systolic heart failure Complaints: no complaints Tele-Events Since Last Visit: No any overnight events, normal sinus rhythm with PVCs Subjective: Patient seen and examined at the bedside. He doesn't have any active complaints. He did the shower without any episode of respiratory distress. We taper down oxygen. He is still have bilateral lower extremity edema but less than before. Review of Systems Constitutional: Denies: no symptoms. Objective Last 24 Hrs of Vital Signs/I&O Vital Signs Date Time Temp Pulse Resp B/P B/P Pulse O2 O2 Flow FiO2 Mean Ox Delivery Rate 08/03 1335 81 110/60 08/03 0954 81 110/60 08/03 0950 81 110/60 08/03 0800 Nasal 2.0L Cannula 08/03 0646 97.9 81 20 110/60 95 Nasal Cannula 08/03 0000 Nasal 2.0L Cannula 08/02 2307 98.0 107 16 122/58 94 Nasal Cannula 08/02 2105 100 122/58 08/02 1600 Nasal 2.0L Cannula 08/02 1439 97.8 83 20 130/76 93 Intake & Output 08/03 1600 08/03 0800 08/03 0000 Intake Total 110 595 Output Total 150 1969 Balance -40 -1375 Intake, IV 10 20 Intake, Oral 100 575 Number 1 0 Bowel Movements Output, Urine 150 1969 Physical Exam General Appearance: Alert, Oriented X3, Cooperative Neck: Supple, No JVD Cardiovascular: Normal S1, Normal S2 Lungs: Clear to Auscultation, Normal Air Movement Abdomen: Soft, distended Extremities: No Clubbing, No Cyanosis, mild pitting edema Vascular: Normal Pulses, Pulses Symmetrical Current Medications: patient in no erythema. I updated them+ Current Medications Sig/Franki Start time Last Medication Dose Route Stop Time Status Admin Aspirin 81 MG DAILY 08/01 1000 AC 08/03 PO 0951 Atorvastatin Calcium 40 MG 1700 08/01 1700 AC 08/02 PO 1718 Doxazosin Mesylate 1 MG DAILY 08/01 1000 AC 08/03 PO 0949 Finasteride 5 MG DAILY 08/01 1000 AC 08/03 PO 0952 Furosemide 40 MG 7:30 AM, & 4:30 PM 08/02 0730 AC 08/03 IV 0800 Insulin Aspart 0 TIDAC 08/02 1200 AC 08/03 SC 0900 Isosorbide 60 MG DAILY 08/01 1000 AC 08/03 Mononitrate PO 0954 Metoprolol Succinate 25 MG DAILY 08/03 1012 AC 08/03 PO 1335 Omeprazole 40 MG DAILY AC 08/01 0948 AC 08/03 PO 0515 Oxybutynin Chloride 5 MG BID 08/01 1000 AC 08/03 PO 0952 Polyethylene Glycol 17 GM DAILY 08/02 1737 AC 08/02 PO 1948 Ranolazine 1,000 MG Q12 08/01 1000 AC 08/03 PO 0950 Sacubitril/Valsartan 1 TAB BID 08/02 1000 AC 08/03 PO 0953 Senna 187 MG AT BEDTIME 08/02 2200 AC 08/02 PO 1948 Warfarin Sodium 10 MG COUMADIN 1700 08/02 1700 AC 08/02 PO 1718 Last 24 Hrs of Lab/Louis Results Last 24 Hrs of Labs/Mics: Laboratory Tests 08/03/17 0630: Anion Gap 11, Estimated GFR > 60, BUN/Creatinine Ratio 17.3, PT 18.6 H, INR 1.78 H, CBC w Diff NO MAN DIFF REQ, RBC 4.28 L, MCV 92.3, MCH 30.9, RDW 15.9 H, MPV 9.7, Gran % 72.7, Lymphocytes % 13.1 L, Monocytes % 12.2 H, Eosinophils % 1.5, Basophils % 0.5, Absolute Granulocytes 5.0, Absolute Lymphocytes 0.9 L, Absolute Monocytes 0.8 H, Absolute Eosinophils 0.1, Absolute Basophils 0, PUBS MCHC 33.5 Assessment/Plan Assessment: 82-year-old gentleman with past medical history of known coronary artery disease and congestive heart failure with reduced ejection fraction was admitted for acute decompensation of HFrEF. Acute on chronic systolic heart failure - * Discussed with the creative specialist advised to continue Lasix for today and if patient remains asymptomatic, then plan for discharge tomorrow. * We started patient on the beta blockers at home doses * Strict intake output charting * Daily weight measurement * We'll follow BEP tomorrow * We will Continue Entresto and beta juan * Plan for AICD discussion with creative specialist as an outpatient History of PE status post IVC * Dose Coumadin TO 10mg according to INR Chronic medical conditions history of CAD, hypertension, , hyperlipidemia BPH, GERD Continue on aspirin and statin, metoprolor imdur, renxa,Entrsto,tamsulisin, vesicare, finasterdie and Omeprazole DVT prophylaxis - Coumadin CODE STATUS - full code Problem List: 1. Acute heart failure Pain Ratin Pain Location: n/a Pain Goal: Remain pain free Pain Plan: no NSAIDs Tomorrow's Labs & Rationales: bep, pt/inr DVT/Prophylaxis: mechanical, pharmacological Tracie RODRIGUEZ,Amir 08/03/17 1016: Attending MD Review Statement Attending Statement Attending MD Statement: examined this patient, discuss w/resident/PA/CONSERVATION BIOLOGY PROFESSOR, agreed w/resident/PA/CONSERVATION BIOLOGY PROFESSOR, reviewed EMR data (avail), discussed with nursing Attending Assessment/Plan: Pt was seen and evalauted by me. No overnight issues. Reports doing better. Denies CP. Vital Signs Date Time Temp Pulse Resp B/P B/P Pulse O2 O2 Flow FiO2 Mean Ox Delivery Rate 08/03 0954 81 110/60 08/03 0950 81 110/60 08/03 0800 Nasal 2.0L Cannula 08/03 0646 97.9 81 20 110/60 95 Nasal Cannula 08/03 0000 Nasal 2.0L Cannula 08/02 2307 98.0 107 16 122/58 94 Nasal Cannula 08/02 2105 100 122/58 08/02 1600 Nasal 2.0L Cannula 08/02 1439 97.8 83 20 130/76 93 Intake & Output 08/03 1600 08/03 0800 08/03 0000 Intake Total 110 595 Output Total 150 1970 Balance -40 -1375 Intake, IV 10 20 Intake, Oral 100 575 Number 1 0 Bowel Movements Output, Urine 150 1969 GEN: NAD, AAOx3 HEENT: moist mucosa LUNGS: CTA HEART: s1s2 ABD: soft EXT: +edema A/P: --Cont to monitor I/O, urine output, diuresis --appreciate cards evaluation --resume home meds (b-juan) as per Cards --rest of the plan as per resident's note
--- NOTE | 2017-08-03 12:33 | PN- Cardiology ---
Subjective Subjective: Continues to improve. Still with lower extremity edema which is not at baseline. Objective Vital Signs and I&Os Vital Signs Date Time Temp Pulse Resp B/P B/P Pulse O2 O2 Flow FiO2 Mean Ox Delivery Rate 08/03 0954 81 110/60 08/03 0950 81 110/60 08/03 0800 Nasal 2.0L Cannula 08/03 0646 97.9 81 20 110/60 95 Nasal Cannula 08/03 0000 Nasal 2.0L Cannula 08/02 2307 98.0 107 16 122/58 94 Nasal Cannula 08/02 2105 100 122/58 08/02 1600 Nasal 2.0L Cannula 08/02 1439 97.8 83 20 130/76 93 Intake & Output 08/03 1600 08/03 0800 08/03 0000 08/02 1600 08/02 0800 08/02 0000 Intake Total 110 595 734 480 360 Output Total 150 1969 1725 300 300 Balance -40 -1375 -991 180 60 Intake, IV 10 20 14 Intake, Oral 100 575 720 480 360 Number 1 0 Bowel Movements Output, Urine 150 1969 1725 300 300 Patient 251 lb Weight Weight Chair scale Measurement Method Physical Exam: General: no apparent distress. Alert. On nasal cannula oxygen. Eyes: No obvious scleral icterus. HEENT: Mild jugular venous distention Cardiovascular: Normal intensity S1/S2. Regular Respiratory: Mildly decreased air entry bilaterally Abdomen: Soft, nontender with no guarding or rebound tenderness. Musculoskeletal: No clubbing or cyanosis noted; 1+ lower extremity edema Skin: warm Neurologic: No gross focal deficits noted. Current Medications: Current Medications Sig/Franki Start time Last Medication Dose Route Stop Time Status Admin Aspirin 81 MG DAILY 08/01 1000 AC 08/03 PO 0951 Atorvastatin Calcium 40 MG 1700 08/01 1700 AC 08/02 PO 1718 Doxazosin Mesylate 1 MG DAILY 08/01 1000 AC 08/03 PO 0949 Finasteride 5 MG DAILY 08/01 1000 AC 08/03 PO 0952 Furosemide 40 MG 7:30 AM, & 4:30 PM 08/02 0730 AC 08/03 IV 0800 Insulin Aspart 0 TIDAC 08/02 1200 AC 08/03 SC 0900 Isosorbide 60 MG DAILY 08/01 1000 AC 08/03 Mononitrate PO 0954 Metoprolol Succinate 25 MG DAILY 08/03 1012 AC PO Omeprazole 40 MG DAILY AC 08/01 0948 AC 08/03 PO 0515 Oxybutynin Chloride 5 MG BID 08/01 1000 AC 08/03 PO 0952 Polyethylene Glycol 17 GM DAILY 08/02 1737 AC 08/02 PO 1948 Ranolazine 1,000 MG Q12 08/01 1000 AC 08/03 PO 0950 Sacubitril/Valsartan 1 TAB BID 08/02 1000 AC 08/03 PO 0953 Senna 187 MG AT BEDTIME 08/02 2200 AC 08/02 PO 1948 Warfarin Sodium 10 MG COUMADIN 1700 08/02 1700 AC 08/02 PO 1718 Results Last 48 Hrs of Labs/Mics: Laboratory Tests 08/03/17 0630: Anion Gap 11, Estimated GFR > 60, BUN/Creatinine Ratio 17.3, PT 18.6 H, INR 1.78 H, CBC w Diff NO MAN DIFF REQ, RBC 4.28 L, MCV 92.3, MCH 30.9, RDW 15.9 H, MPV 9.7, Gran % 72.7, Lymphocytes % 13.1 L, Monocytes % 12.2 H, Eosinophils % 1.5, Basophils % 0.5, Absolute Granulocytes 5.0, Absolute Lymphocytes 0.9 L, Absolute Monocytes 0.8 H, Absolute Eosinophils 0.1, Absolute Basophils 0, PUBS MCHC 33.5 08/02/17 0627: Anion Gap 8, Estimated GFR > 60, BUN/Creatinine Ratio 15.6, PT 20.0 H, INR 1.92 H, CBC w Diff NO MAN DIFF REQ, RBC 3.93 L, MCV 93.8, MCH 30.7, RDW 16.4 H, MPV 9.6, Gran % 74.0, Lymphocytes % 13.1 L, Monocytes % 11.5 H, Eosinophils % 1.0, Basophils % 0.4, Absolute Granulocytes 4.7, Absolute Lymphocytes 0.8 L, Absolute Monocytes 0.7 H, Absolute Eosinophils 0.1, Absolute Basophils 0, PUBS MCHC 32.7 L 08/01/17 1950: Troponin I 0.04 08/01/17 1443: Troponin I 0.04 Recent Imaging Studies: Telemetry tracings were personally reviewed show sinus rhythm with PVCs Assessment/Plan Assessment/Plan 1. Acute on chronic systolic heart failure 2. History of ischemic cardiomyopathy and left bundle-branch block with a recent cardiac catheterization (04/2017) showing severe three-vessel [place] coronary artery disease with patent bifurcating saphenous vein graft to the 2nd obtuse marginal and occluded saphenous vein graft to the distal right coronary artery with no obvious evidence of internal mammary artery graft (medical management advised) 3. History of coronary artery disease with remote CABG 4. History of pulmonary embolism on Coumadin 5. History of diabetes mellitus 6. History of hypertension and hyperlipidemia Continues to improve but still with lower extremity edema. Continue on IV Lasix for now. Attempt to wean off nasal cannula oxygen and monitor ambulatory O2 sats. Continue on Entresto and resume his beta juan. Familia Daniel MD [facility] Continue telemetry? Yes
[2017-08-03 14:45] VITALS: BP 122/60
--- NOTE | 2017-08-03 17:27 | Patient Discharge Instructions ---
Discharge Instructions General Discharge Information You were seen/treated for: acute heart failure and treated with diuretics Special Instructions: please follow up with your PCP with in a week of discharge. Please follow up with your link cutter with in a week of discharge. Please check your weight daily, if increased than talk to your link cutter. Please take medication as advised. Diet Recommended Diet: Heart Healthy Activity Activity Self Limited: Yes Acute Coronary Syndrome Inclusion Criteria At DC or during hospital stay patient has or had the following: ACS DIAGNOSIS No Discharge Core Measures Meds if any: Prescribed or Continued at Discharge Meds if any: NOT Prescribed or Continued at Discharge Congestive Heart Failure Inclusion Criteria At DC or during hospital stay patient has or had the following: CHF DIAGNOSIS Yes Discharge Core Measures Meds if any: Prescribed or Continued at Discharge NICHOLAS/ARB for EF <40% Yes Meds if any: NOT Prescribed or Continued at Discharge Cerebrovascular accident Inclusion Criteria At DC or during hospital stay patient has or had the following: CVA/TIA Diagnosis No Discharge Core Measures Meds if any: Prescribed or Continued at Discharge Antithrombotic Yes Statin (required if LDL =>70) Yes Meds if any: NOT Prescribed or Continued at Discharge Venous thromboembolism Inclusion Criteria VTE Diagnosis No VTE Type NONE VTE Confirmed by (Test) NONE Discharge Core Measures - Per Current guidelines, there needs to be overlap - treatment for the first 5 days of Warfarin therapy. - If discharged on Warfarin prior to 5 days of - overlap therapy, the patient will need to be - assessed for post discharge needs including - *Post discharge parental anticoagulation - *Warfarin and/or parental anticoagulation education - *Follow up date to check INR post discharge At least 5 days overlap therapy as Inpatient No Meds if any: Prescribed or Continued at Discharge Note: Overlap Therapy is Warfarin and Anticoagulant Meds if any: NOT Prescribed or Continued at Discharge
[2017-08-03 23:01] VITALS: BP 122/62
[2017-08-04 07:14] VITALS: BP 92/57
[2017-08-04 08:44] LABS: PT 27.6 SEC (9.4-12.5)
--- NOTE | 2017-08-04 08:55 | PN- Housestaff ---
PrakashKeven 08/04/17 0854: Subjective Follow-up For: acute on chronic systolic heart failure Subjective: was examined no complains stable for discharge no over night tele event Review of Systems Constitutional: Reports: no symptoms. Cardiovascular: Reports: no symptoms. Respiratory: Reports: no symptoms. Gastrointestinal: Reports: no symptoms. Genitourinary: Reports: no symptoms. Objective Last 24 Hrs of Vital Signs/I&O Vital Signs Date Time Temp Pulse Resp B/P B/P Pulse O2 O2 Flow FiO2 Mean Ox Delivery Rate 08/04 1041 79 114/58 08/04 0834 87 108/56 08/04 0834 87 108/56 08/04 0714 98.0 76 20 92/57 92 08/03 2301 98.0 85 16 122/62 92 Room Air 08/03 2040 83 122/62 Intake & Output 08/04 1600 08/04 0800 08/04 0000 Intake Total 240 60 Output Total 1100 Balance 240 -1040 Intake, Oral 240 60 Number 2 Bowel Movements Output, Urine 1100 Patient 247 lb Weight Weight Bed scale Measurement Method Physical Exam General Appearance: Alert, Oriented X3, Cooperative, No Acute Distress Lymphatic: Axillary nl, Cervical nl Cardiovascular: Normal S1, Normal S2, No Murmurs Lungs: Clear to Auscultation, Normal Air Movement Abdomen: Soft Extremities: No Edema Current Medications: Current Medications Sig/Franki Start time Last Medication Dose Route Stop Time Status Admin Aspirin 81 MG DAILY 08/01 1000 DCD 08/04 PO 0831 Atorvastatin Calcium 40 MG 1700 08/01 1700 DCD 08/03 PO 1700 Doxazosin Mesylate 1 MG DAILY 08/01 1000 DCD 08/04 PO 0831 Ferrous Sulfate 325 MG TID 08/04 1600 DCD PO Finasteride 5 MG DAILY 08/05 1000 CAN PO Finasteride 5 MG DAILY 08/01 1000 DCD 08/04 PO 0831 Furosemide 40 MG 7:30 AM, & 4:30 PM 08/02 0730 DCD 08/04 IV 0829 Insulin Aspart 0 TIDAC 08/02 1200 DCD 08/04 SC 0835 Isosorbide 60 MG DAILY 08/01 1000 DCD 08/04 Mononitrate PO 1041 Metoprolol Succinate 25 MG DAILY 08/03 1012 DCD 08/04 PO 0834 Omeprazole 40 MG DAILY AC 08/01 0948 DCD 08/04 PO 0451 Oxybutynin Chloride 5 MG BID 08/01 1000 DCD 08/04 PO 0831 Polyethylene Glycol 17 GM DAILY 08/02 1737 DCD 08/02 PO 1948 Ranolazine 1,000 MG Q12 08/01 1000 DCD 08/04 PO 0834 Sacubitril/Valsartan 1 TAB BID 08/02 1000 DCD 08/04 PO 0831 Senna 187 MG AT BEDTIME 08/02 2200 DCD 08/03 PO 2041 Last 24 Hrs of Lab/Louis Results Last 24 Hrs of Labs/Mics: Laboratory Tests 08/04/17 0650: Anion Gap 11, Estimated GFR > 60, BUN/Creatinine Ratio 26.0 H, PT 27.6 H, INR 2.65 H Assessment/Plan Assessment: 82-year-old gentleman with past medical history of known coronary artery disease and congestive heart failure with reduced ejection fraction was admitted for acute decompensation of HFrEF. Acute on chronic systolic heart failure -resolved History of PE status post IVC * Dose Coumadin TO 10mg according to INR Chronic medical conditions history of CAD, hypertension, , hyperlipidemia BPH, GERD Continue on aspirin and statin, metoprolor imdur, renxa,Entrsto,tamsulisin, vesicare, finasterdie and Omeprazole DVT prophylaxis - Coumadin CODE STATUS - full code Problem List: 1. AC Blood loss Anemia 2. Acute respiratory distress 3. Aspiration pneumonia 4. B/L DVT 5. BILLROTH II surgery 6. CAD s/p multiple angioplasties 7. Diabetes mellitus 8. Essential hypertension 9. GERD 10. OA 11. R HEART STRAIN 12. SADDLE PULM EMBOLISM 13. diverticulosis of colon 14. Unstable angina 15. Chest pain 16. DVT prophylaxis 17. Congestive heart failure 18. Acute and chronic respiratory failure with hypoxia 19. New onset left bundle branch block (LBBB) 20. Acute respiratory failure with hypoxia 21. EtOH dependence 22. Acute heart failure 23. Heart failure Pain Ratin Pain Location: none Pain Goal: Remain pain free Pain Plan: pain pathway Tomorrow's Labs & Rationales: none Tracie RODRIGUEZ,Amir 08/04/17 1022: Attending MD Review Statement Attending Statement Attending Statement: examined this patient, discuss w/resident/PA/INDUSTRIAL BOILERMAKER, agreed w/resident/PA/INDUSTRIAL BOILERMAKER, reviewed EMR data (avail), discussed with nursing Attending Assessment/Plan: Pt was seen and evalauted. No overnight issues. Case d/w with the resident. He reports doing well today. Didn't require O2 this am. No CP or SOB. Ambulating well VSS GEN: NAD LUNGS: CTAB A/P -- resume home meds -- likely to go home today if also OK by Cards
[2017-08-04] MEDS ORDERED: ENTRESTO 49 MG1 EACH PO ×2 (10:35→10:36)
[2017-08-04 10:41] VITALS: BP 114/58
[2017-08-04] MEDS ORDERED: ISOSORBIDE MONO60 M1 PO (11:18)
[2017-08-04] MEDS ORDERED: IRON325 M3 PO (11:23)
[2017-08-04] MEDS ORDERED: FINASTERIDE5 M1 PO (11:24)
--- NOTE | 2017-08-05 09:15 | Discharge Summary ---
Visit Information Visit Dates Admission Date: 08/01/17 Discharge Date: 08/04/17 Hospital Course Course Attending Physician: Josy Wright MD Primary Care Physician: Parish Gar MD Hospital Course: 82-year-old gentleman with past medical history of known coronary artery disease and congestive heart failure with reduced ejection fraction presented with complaint of shortness of breath at rest along with worsening of bilateral lower extremity swelling and orthopnea and was admitted for acute decompensation of HFrEF -Vitals at time of presentation patient was found to be hypoxic to 80% and was started on 4L of nasal cannula. Rest of vitals within normal limits -Pertinent labs proBNP 3850, WBC 10.9 with left shift no bandemia; H&H: 13.5/41; INR 2.2 -Chest x-ray: Suggestive of pulmonary congestion and pulmonary edema The patient was admitted to telemetry floor and was evaluated/treated for following conditions: #Hypoxic respiratory failure in setting of acute decompensated heart failure. Cause of hypoxic respiratory failure was most likely acute decompensation of CHF likely due to lack of compliance to restricted salt diet. Patient was treated with diuresis IV Lasix 40 mg BID, along with monitoring of daily weights, strict I&Os, fluid restriction 1000ml and salt restriction. Patient's home dose of Entresto and beta juan were continued and oxygen requirements were weaned off. Patient is being discharged on home dose of Lasix. * If ejection fraction does not improve in the future after maximization of his antimyopathic regimen he may be a candidate for biventricular AICD. Outpatient follow-up with cardiology. #History of PE status post IVC: Coumadin was dosed according to INR #Chronic medical conditions history of CAD, hypertension,hyperlipidemia, BPH, GERD We continued on aspirin and statin, metoprolor imdur, renxa, Entrsto,tamsulisin, vesicare,finasterdie and Omeprazole #Patient was full code during his stay Allergies: Coded Allergies: NO KNOWN ALLERGIES (NONE 08/01/17) Disposition Summary Disposition Principal Diagnosis: Hypoxic respiratory failure in setting of acute decompensated heart failure Additional Diagnosis: History of PE status post IVC Discharge Disposition: home or self care Discharge Instructions General Discharge Information Code Status: Full Code Patient's Diet: Fluid restriction and salt restriction Patient's Activity: As tolerated Follow-Up Instructions/Appts: Please follow-up with PCP within one week of discharge Please follow-up with pneumatic press hand within 1 week of discharge Please check your weight daily, if increased than talk to your pneumatic press hand. Medications at Discharge Discharge Medications: Continue taking these medications: Esomeprazole (Nexium) 40 MG CAPSULE.DR 1 Capsule ORAL DAILY Comments: Last Taken: 08/04/17 Time: 5:00 AM OMEPRAZOLE GIVEN SUBSTITUTE Tamsulosin HCl (Flomax) 0.4 MG CAP.ER.24H 1 Capsule ORAL DAILY Qty = 30 Comments: NOT GIVEN IN HOSPITAL Ranolazine (Ranexa) 500 MG TAB.ER.12H 2 Tablet ORAL TWICE DAILY Qty = 30 Comments: Last Taken: 08/04/17 Time: 8:30 AM Solifenacin Succinate (Vesicare) 10 MG TABLET 1 Tablet ORAL DAILY Comments: NOT GIVEN IN HOSPITAL Rosuvastatin Calcium (Crestor) 10 MG TABLET 1 Tablet ORAL DAILY Comments: Last Taken: 08/03/17 Time: 5:00 PM LIPITOR GIVEN SUBSTITUTE Metoprolol Succ XL (Toprol XL) 25 MG TAB 25 Milligram ORAL DAILY Qty = 30 Comments: Last Taken: 08/04/17 Time: 08:30 AM Aspirin (Aspirin*) 81 MG TAB.CHEW 81 Milligram ORAL DAILY Qty = 60 Comments: Last Taken: 08/04/17 Time: 8:30 AM Furosemide (Lasix) 40 MG TABLET 1 Tablet ORAL DAILY Qty = 60 Comments: Last Taken: 08/04/17 Time: 8:30 AM IV DOSE GIVEN Start taking the following new medications: Sacubitril/Valsartan (Entresto 49 MG-51 MG Tablet) 49 MG-51 MG TABLET 1 Tablet ORAL TWICE DAILY Days = 28 Refills = 1 Comments: Last Taken: 08/04/17 Time: 8:30 AM Isosorbide Mononitrate (Isosorbide Mononitrate ER) 60 MG TAB.ER.24H 60 Milligram ORAL DAILY Qty = 30 No Refills Comments: Last Taken: 08/04/17 Time: 10:40 AM Finasteride (Finasteride) 5 MG TABLET 1 Milligram ORAL DAILY Qty = 30 No Refills Comments: Last Taken: 08/04/17 Time: 8:30 AM Ferrous Sulfate (IRON) 325 MG (65 MG IRON) TABLET 1 Tablet ORAL THREE TIMES DAILY Qty = 1 Refills = 1 Comments: NOT GIVEN IN HOSPITAL Copies To: Rin RODRIGUEZ,Parish Velazquez; María RODRIGUEZ,Ye Attending MD Review Statement Documenting Attending: Dung Hodges MD
== END 2017-08-04 12:00 | DRG 291 ==
LOC: ERH 05:39 → ERHI 06:51 → ENRESERV 08:58 → ENTRNSPT 10:25 → EDTRNSPT 10:26 → EDTRNSPTSTS 10:30 → 1NO 10:42 → CMPTRNSPT 10:46 → 1NO 10:55 → ENPENDDIS 08-04 10:55 → ENTRNSPT 08-04 11:40 → EDTRNSPTSTS 08-04 11:54 → EDTRNSPT 08-04 11:54 → 1NO 08-04 12:00 → CMPTRNSPT 08-04 12:06
PROVIDERS: Emergency Medicine; Internal Medicine; Internal Medicine Adolescent Medicine; Student in an Organized Health Care Education/Training Program
DX: I11.0 Hypertensive heart disease with heart failure (principal); J96.91 Respiratory failure, unspecified with hypoxia; I50.23 Acute on chronic systolic (congestive) heart failure; I25.5 Ischemic cardiomyopathy; I25.10 Atherosclerotic heart disease of native coronary artery without angina pectoris; I44.7 Left bundle-branch block, unspecified; E11.9 Type 2 diabetes mellitus without complications; Z95.1 Presence of aortocoronary bypass graft; Z86.711 Personal history of pulmonary embolism; E78.5 Hyperlipidemia, unspecified; Z86.718 Personal history of other venous thrombosis and embolism; K21.9 Gastro-esophageal reflux disease without esophagitis; N40.0 Benign prostatic hyperplasia without lower urinary tract symptoms; Z87.891 Personal history of nicotine dependence; Z98.84 Bariatric surgery status
CPT/HCPCS: 1NP; 36415; 82436; 87804; 87804-59; 93005; 93010; 96374; J1940; J3490

== ENCOUNTER 2017-08-30 19:45 | Inpatient (IN) | payer OTHER, MEDICARE ==
[~2017-08-30] VITALS: Ht 179.1 cm; Wt 113.4 kg
[~2017-08-30 19:45] MED LIST changes: +ENTRESTO 49 MG1 EACH PO; +FINASTERIDE5 M1 PO; +IRON325 M3 PO; +ISOSORBIDE MONO60 M1 PO
--- NOTE | 2017-08-30 19:51 | ED AMS/SEIZURE/WEAK/DIZZY ---
History of Present Illness General Chief Complaint: Dizziness Stated Complaint: BIBA FOR DIZZINESS Source: patient, old records, EMS Exam Limitations: poor historian Vital Signs & Intake/Output Vital Signs & Intake/Output Vital Signs Date Time Temp Pulse Resp B/P B/P Pulse O2 O2 Flow FiO2 Mean Ox Delivery Rate 09/03 1254 90 138/84 09/03 1254 90 138/84 09/03 1254 90 138/84 09/03 1254 90 138/84 09/03 0714 97.5 89 20 138/84 92 Room Air 09/02 2239 84 130/72 09/02 2147 98.2 77 20 130/60 97 Room Air 09/02 1413 98.1 78 20 108/56 93 Room Air ED Intake and Output 09/03 0000 09/02 1200 Intake Total 914 200 Output Total 2650 1125 Balance -1736 -925 Intake, IV 114 Intake, Oral 800 200 Output, Urine 2650 1125 Patient 250 lb Weight Weight Bed scale Measurement Method Allergies Coded Allergies: NO KNOWN ALLERGIES (NONE 08/01/17) Reconcile Medications Aspirin (Aspirin*) 81 MG TAB.CHEW 81 MG PO DAILY HEART HEALTH Cyanocobalamin (Vitamin B-12) (Vitamin B-12) 100 MCG TABLET 1 TAB PO DAILY SUPPLEMENT (Reported) Esomeprazole (Nexium) 40 MG CAPSULE.DR 1 CAP PO DAILY reflux (Reported) Ferrous Sulfate 325 MG (65 MG IRON) TABLET 1 TAB PO DAILY SUPPLEMENT ( Reported) Finasteride (Proscar) 5 MG TABLET 1 TAB PO DAILY BHP (Reported) Furosemide (Lasix) 40 MG TABLET 1 TAB PO DAILY diuretic Isosorbide Mononitrate (Isosorbide Mononitrate ER) 60 MG TAB.ER.24H 60 MG PO DAILY Heart health Metformin HCl (Metformin HCl ER) 500 MG TAB.ER.24H 1 TAB PO BID DM (Reported) Metoprolol Succ XL (Toprol XL) 25 MG TAB 25 MG PO DAILY HEART HEALTH Nitroglycerin (Nitrostat) 0.3 MG TAB.SUBL 1 TAB SL AD PRN CHEST PAIN ( Reported) Ranolazine (Ranexa) 500 MG TAB.ER.12H 2 TAB PO BID Heart (Reported) Rosuvastatin Calcium (Crestor) 10 MG TABLET 1 TAB PO DAILY GI (Reported) Sacubitril/Valsartan (Entresto 49 MG-51 MG Tablet) 49 MG-51 MG TABLET 1 TAB PO BID Heart Failure Solifenacin Succinate (Vesicare) 10 MG TABLET 0.5 TAB PO DAILY prostate ( Reported) Tamsulosin HCl (Flomax) 0.4 MG CAP.ER.24H 1 CAP PO DAILY prostate (Reported) Ubidecarenone (Co Q-10) 100 MG CAPSULE 1 CAP PO DAILY SUPPLEMENT (Reported) Warfarin Sodium 6 MG TABLET 1 TAB PO DAILY DVT AND PE (Reported) 6 MG DAILY EXCEPT SAT AND SUN WHEN TAKES 3 MG Triage Nurses Notes Reviewed? yes HPI: This is an 82 year old with history of hypertension, dyslipidemia, CHF, history of DVT PE on Coumadin with IVC filter who presents from home male arrives via EMS tonight for feeling dizzy, nauseated and vomiting tonight. He states he was sitting on the toilet having diarrhea and felt very nauseous and felt too weak to get up. He did not fall. No headache shortness of breath chest pain or palpitations. He states he has been feeling winded in the last few days however. He went to Dr. Howard's office on Friday for a regular checkup and everything was okay. Patient is due to go see Dr. Kathleen Valles secondary to extra ventricular beats. EMS found him vomiting at home nonbloody nonbilious material. He vomited once on route as well and got Zofran IV. He states he is feeling better at this time. Denies any recent sick contacts. He has not stayed overnight in the hospital since August when he was dispositioned. He was seen here last week in the ER for a checkup. Past History Travel History Traveled to [place] past 21 day No Medical History Any Pertinent Medical History? see below for history Neurological: NONE EENT: NONE Cardiovascular: CHF, hypertension, hyperlipidemia Respiratory: pneumonia Gastrointestinal: constipation Hepatic: NONE Renal: NONE Musculoskeletal: NONE Psychiatric: NONE Endocrine: diabetes Blood Disorders: DVT, PE Cancer(s): NONE DE ICER ELEMENT WINDER/Reproductive: NONE History of MRSA: No History of VRE: No History of CDIFF: No Influenza Vaccine: 04/12/17 Surgical History Surgical History: appendectomy, CABG (X 4 (MORE THAN 10 YEARS AGO)), cholecystectomy, IVC FILTER Psychosocial History Who do you live with Patient/Self Services at Home None What is your primary language Malian Tobacco Use: Quit >30 days ago ETOH Use: 1-2 SCOTCH PER DAY Family History Family History, If Any: FATHER (heart disease). Relation not specified for: *No pertinent family history Hx Contributory? No Review of Systems Review of Systems Constitutional: Reports: malaise, weakness. Denies: chills, fever. EENTM: Reports: no symptoms. Respiratory: Reports: short of breath. Denies: cough, sputum production. Cardiovascular: Denies: chest pain. GI: Reports: diarrhea, nausea, vomiting. Denies: abdominal pain. Genitourinary: Denies: discharge, dysuria, frequency. Musculoskeletal: Denies: back pain. Skin: Reports: no symptoms. Neurological/Psychological: Reports: no symptoms. Hematologic/Endocrine: Denies: bruising, bleeding, polyuria, polydipsia. Immunologic/Allergic: Denies: splenectomy. All Other Systems: Reviewed and Negative Physical Exam Physical Exam General Appearance: well developed/nourished, alert, awake, mild distress, moderate distress, obese Head: atraumatic, normal appearance Eyes: Bilateral: normal appearance, PERRL, EOMI. Ears, Nose, Throat: normal pharynx, hearing grossly normal Neck: normal inspection, supple, full range of motion Respiratory: normal breath sounds, chest non-tender, no respiratory distress Cardiovascular: irregularly irregular Peripheral Pulses: 2+ radial (R), 2+ radial (L) Gastrointestinal: normal bowel sounds, soft, non-tender Extremities: normal range of motion Neurologic/Psych: no motor/sensory deficits, awake, alert, oriented x 3 Skin: intact, normal color, warm/dry, diaphoresis Core Measures ACS in differential dx? Yes CVA/TIA Diagnosis No Sepsis Present: No Sepsis Focused Exam Completed? No Progress Differential Diagnosis: arrythmia, anemia, benign positional vertigo, chf, pna, influenza, finn, gastroenteritis, dehydration Plan of Care: Orders Procedure Date/time Status Consistent Carbohydrate 1 09/03 D Active Nothing by Mouth 09/03 B Complete PARTIAL THROMBOPLASTIN TIME 09/03 06 Complete PROTHROMBIN TIME 09/03 06 Complete CBC WITHOUT DIFFERENTIAL 09/03 06 Complete BASIC ELECTROLYTES PLUS BUN&CR 09/03 06 Complete EKG 09/03 UNK Active PARTIAL THROMBOPLASTIN TIME 09/02 2230 Complete Weight 09/02 1633 Complete Heparin Drip- AFIB/FLUTTER/PE/ 09/02 1543 Active Current Medications Sig/Franki Start time Last Medication Dose Stop Time Status Admin Warfarin Sodium 3 MG COUMADIN 1700 ONE 09/03 1700 UNVr (Coumadin) 09/03 1701 Amiodarone HCl 400 MG BID 09/03 1310 UNVr (Cordarone) Isosorbide 30 MG DAILY 09/03 1000 AC 09/03 Mononitrate 1254 (Imdur) Sacubitril/Valsartan 1 TAB BID 09/03 1000 AC (ENTRESTO 49MG/51MG) Furosemide 40 MG 7:30 AM, & 4:30 PM 09/01 0730 AC 09/03 (Lasix) 0622 Atorvastatin Calcium 40 MG 1700 08/31 1700 AC 09/02 (Lipitor) 1618 Aspirin 81 MG DAILY 08/31 1000 AC 09/03 (Aspirin) 1254 Finasteride 5 MG DAILY 08/31 1000 AC 09/03 (Proscar) 1254 Metoprolol Succinate 25 MG DAILY 08/31 1000 AC 09/03 (Toprol XL) 1254 Oxybutynin Chloride 2.5 MG BID 08/31 1000 AC 09/03 (Ditropan 2.5MG 1254 Tab(1/2 of a 5mg tab)) Ranolazine 1,000 MG BID 08/31 1000 AC 09/03 (Ranexa) 1254 Tamsulosin HCl 0.4 MG DAILY 08/31 1000 AC 09/03 (Flomax) 1254 Insulin Aspart 0 TIDAC 08/31 0800 AC 09/03 (NovoLOG) 1252 Magnesium Chloride 64 MG DAILY 08/31 0730 AC 09/03 (Slow-Mag) 1255 Omeprazole 40 MG DAILY AC 08/31 0700 AC 09/02 (Prilosec) 0622 Acetaminophen 650 MG Q8P PRN 08/30 2345 AC (Tylenol) Laboratory Tests 09/03/17 0635: Anion Gap 16, Estimated GFR > 60, BUN/Creatinine Ratio 18.0, PT 24.0 H, INR 2.30 H, APTT 46 H, CBC w Diff NO MAN DIFF REQ, RBC 4.33 L, MCV 89.3, MCH 29.8 , MCHC 33.3, RDW 16.8 H, MPV 9.9, Gran % 77.3 H, Lymphocytes % 9.1 L, Monocytes % 12.1 H, Eosinophils % 1.1, Basophils % 0.4, Absolute Granulocytes 5.1, Absolute Lymphocytes 0.6 L, Absolute Monocytes 0.8 H, Absolute Eosinophils 0.1, Absolute Basophils 0 09/03/17 0630: APTT Cancelled 09/02/17 2231: APTT > 120 *H Diagnostic Imaging: Viewed by Me: Radiology Read. Discussed w/RAD: Radiology Read. CXR Impression: PATIENT: SAM KESSLER JR PRESENT AGE: 82 PATIENT ACCOUNT NO: [id number] : 37 LOCATION: [facility] ORDERING PHYSICIAN: Yee English MD SERVICE DATE: 08/30/17 EXAM TYPE: RAD - XRY -PORTABLE CHEST XRAY EXAMINATION: XR PORTABLE CHEST CLINICAL INFORMATION: Dizzy, shortness of breath COMPARISON: 08/19/2017 TECHNIQUE: Portable AP view of the chest was obtained. FINDINGS: Examination is somewhat limited by lordotic positioning. The cardiac silhouette appears stable compared to prior. Median sternotomy wires remain in place. There is a left lower lobe are consolidation with small associated effusion. The left upper lobe and right lung appear grossly clear. There may be a trace right pleural effusion. The visualized osseous structures appear grossly unremarkable. IMPRESSION: Findings suspicious for left lower lobe pneumonia with small associated effusion. Likely trace right pleural effusion. DICTATED BY: Diana Michael MD DATE/TIME DICTATED:08/30/172124 BRAND ADVOCATE:RICHARD DATE/TIME TRANSCRIBED:08/30/172124 CONFIDENTIAL, DO NOT COPY WITHOUT APPROPRIATE AUTHORIZATION. <Electronically signed in Other Vendor System> SIGNED BY: Diana Michael MD 08/30/172129 Initial ED EKG: AFIB, LBBB, pvc's Rhythm Strip: irregular, multiple pvc's Departure Departure Time of Disposition: 2142 Disposition: STILL A PATIENT Condition: Stable Clinical Impression Primary Impression: Pneumonia Secondary Impressions: Atrial fibrillation Referrals: Rin RDORIGUEZ,Parish Velazquez (PCP/Family) Departure Forms: Customer Survey General Discharge Information Admission Note Spoke With: Josh Bush MD Documentation of Exam: Documentation of any treatments & extenuating circumstances including Concerns Regarding Discharge (functional status, medication knowledge or non-compliance, living conditions, etc.) that warrant an admission rather than observation: [ TELE MONITOR, SERIAL EKG/TROPONIN, CARDIOLOGY CONSULTATION, IV ABX, F/U BLOOD AND SPUTUM CULTURES, NASAL OXYGEN, MONITOR I/O (H/O CHF)]
[2017-08-30 20:20] LABS: ABSOLUTE BASOPHIL COUNT 0 /CUMM (0.0-0.2); ABSOLUTE EOSINOPHIL COUNT 0.1 /CUMM (0.0-0.7); ABSOLUTE GRANULOCYTE CT 4.2 /CUMM (1.4-6.5); ABSOLUTE LYMPH COUNT 0.8 /CUMM (1.2-3.4); ABSOLUTE MONOCYTE COUNT 0.5 /CUMM (0.10-0.60); BASOPHIL % 0.6 % (0.0-2.0); GRANULOCYTE % 75.6 % (42.2-75.2); HEMATOCRIT 40.9 % (42-52); MEAN CORPUSCULAR HGB 29.3 PG (27.0-31.0); MEAN CORPUSCULAR HGB CONC 32.3 G/DL (33.0-37.0); MEAN CORPUSCULAR VOLUME 90.9 FL (80.0-94.0); MEAN PLATELET VOLUME 8.9 FL (7.4-10.4); PLATELET COUNT 239 /CUMM (130-400); RBC DISTRIBUTION WIDTH 16.7 % (11.5-14.5); WHITE BLOOD CELL COUNT 5.6 /CUMM (4.8-10.8)
[2017-08-30] MEDS ORDERED: FERROUS SULFAT325 M3 PO (20:31)
[2017-08-30] MEDS ORDERED: METFORMIN HCL500 M4 PO (20:33)
[2017-08-30] MEDS ORDERED: TOPROL XL50 M1 PO (20:34)
[2017-08-30] MEDS ORDERED: VESICARE5 M1 PO (20:35)
[2017-08-30 20:36] LABS: PT 31.5 SEC (9.4-12.5); PTT 39 SEC (25-37)
[2017-08-30] MEDS ORDERED: WARFARIN SODIUM6 M1 PO (20:36)
[2017-08-30] MEDS ORDERED: NITROSTAT0.3 M1 SL (20:37)
[2017-08-30] MEDS ORDERED: VITAMIN B-12100 MC1 PO (20:38)
[2017-08-30] MEDS ORDERED: CO Q-10100 MG PO (20:38)
[2017-08-30] MEDS ORDERED: FINASTERIDE5 M1 PO (20:42)
--- NOTE | 2017-08-30 21:30 | RADIOLOGY REPORT ---
EXAMINATION: XR PORTABLE CHEST CLINICAL INFORMATION: Dizzy, shortness of breath COMPARISON: 08/19/2017 TECHNIQUE: Portable AP view of the chest was obtained. FINDINGS: Examination is somewhat limited by lordotic positioning. The cardiac silhouette appears stable compared to prior. Median sternotomy wires remain in place. There is a left lower lobe are consolidation with small associated effusion. The left upper lobe and right lung appear grossly clear. There may be a trace right pleural effusion. The visualized osseous structures appear grossly unremarkable. IMPRESSION: Findings suspicious for left lower lobe pneumonia with small associated effusion. Likely trace right pleural effusion.
--- NOTE | 2017-08-30 23:15 | History & Physical ---
Cam RODRIGUEZ,[facility] 08/30/17 2315: General Information and HPI MD Statement: I have seen and personally examined SAM KESSLER JR and documented this H&P. The patient is a 82 year old M who presented with a patient stated chief complaint of [dizziness and weakness]. Source of Information: patient, old records Exam Limitations: no limitations History of Present Illness: The patient is an 82-year-old gentleman with past medical history of CAD with CABG x4 >10y ago, ishemic cardiomyopathy with recent new left bundle branch block which triggered cardiac catheterization (04/2017) showing severe three- vessel nikolai coronary artery disease, systolic CHF with EF 35-40%, history of a PE on Coumadin with prior IVC filter, diabetes, hypertension, hyperlipidemia and BPH. The patient [place] [facility] on [facility] with complaint of feeling dizzy and weak. The patient was in usual state of health until this afternoon when he went to the bathroom and felt dizzy. He called EMS. After that he went to the kitchen and continued to feel dizzy he had multiple episodes of vomiting in the kitchen. EMS arrived and he had another episode of vomiting enroute and received IV Zofran. He denies fever, chills, shortness of breath, chest pain, palpitations, or urinary symptoms. He reports cough which started today. He also reports loose/ soft bowel movements since past 3 weeks. He also reports bilateral lower extremity swelling which is unchanged from the past. Patient reports exertional dyspnea which is also unchanged from the baseline Patient was recently discharged on 08/04 after being treated for acute hypoxic respiratory failure secondary to acute on chronic CHF. He saw a LEATHER GOODS SALES REPRESENTATIVE at Dr. Howard's office and as per patient everything was fine. No sick contacts. Patient is up to date with flu vaccination. He does not remember last time he had pneumonia vaccination. Allergies/Medications Allergies: Coded Allergies: NO KNOWN ALLERGIES (NONE 08/01/17) Past History Travel History Traveled to [place] past 21 day No Medical History Neurological: NONE EENT: NONE Cardiovascular: CHF, hypertension, hyperlipidemia Respiratory: pneumonia Gastrointestinal: constipation Hepatic: NONE Renal: NONE Musculoskeletal: NONE Psychiatric: NONE Endocrine: diabetes Blood Disorders: DVT, PE Cancer(s): NONE VETERINARY TECHNOLOGY INSTRUCTOR/Reproductive: NONE History of MRSA: No History of VRE: No History of CDIFF: No Influenza Vaccine: 04/12/17 Surgical History Surgical History: appendectomy, CABG (X 4 MORE THAN 10 YEARS AGO), cholecystectomy, IVC FILTER Past Family/Social History Family History Relations & Conditions if any FATHER (heart disease). Psychosocial History Where do you live? Home Who Do You Live With? self Services at Home: None Primary Language: Prydeinig Smoking Status: Former Smoker ETOH Use: 1-2 SCOTCH PER DAY Illicit Drug Use: denies illicit drug use Functional Ability ADLs Independent: dressing, eating, toileting, bathing. Ambulation: independent IADLs Independent: shopping, housework, finances, food prep, telephone, transportation , medication admin. Review of Systems Review of Systems Constitutional: Reports: see HPI. Denies: chills, fever. EENTM: Reports: no symptoms. Cardiovascular: Denies: chest pain, palpitations. Respiratory: Denies: cough. GI: Reports: diarrhea. Genitourinary: Reports: no symptoms. Musculoskeletal: Reports: no symptoms. Exam & Diagnostic Data Last 24 Hrs of Vital Signs/I&O Vital Signs Date Time Temp Pulse Resp B/P B/P Pulse O2 O2 Flow FiO2 Mean Ox Delivery Rate 08/30 2256 98.0 69 18 121/67 97 Non 2.0L ReBreather 08/30 2010 Nasal 2.0L Cannula 08/30 2002 98.8 68 16 103/63 90 Room Air Physical Exam General Appearance Alert, Oriented X3, Cooperative, No Acute Distress Skin No Rashes HEENT Atraumatic Neck Supple Lymphatic Cervical nl Cardiovascular Iregular Lungs Clear to Auscultation, decreased breath sounds. No crackels Abdomen Normal Bowel Sounds, Soft, No Tenderness Neurological Normal Speech Extremities b/l +1 lower extremity edema Last 24 Hrs of Labs/Louis: Laboratory Tests 08/30/17 2342: Lactic Acid 1.1 08/30/17 2000: Anion Gap 18 H, Estimated GFR > 60, BUN/Creatinine Ratio 17.5, Glucose 177 H, Lactic Acid 3.4 H, Calcium 8.2 L, Magnesium 1.6, Total Bilirubin 0.6, AST 15 L, ALT 19 L, Alkaline Phosphatase 43, Troponin I 0.03, Ojz-O-Bodwtghbxit Pept 1730 H, Total Protein 6.4, Albumin 3.6, Globulin 2.8, Albumin/Globulin Ratio 1.3, PT 31.5 H, INR 3.03 H, APTT 39 H, CBC w Diff NO MAN DIFF REQ, RBC 4.50 L, MCV 90.9, MCH 29.3, MCHC 32.3 L, RDW 16.7 H, MPV 8.9, Gran % 75.6 H, Lymphocytes % 14.6 L, Monocytes % 8.2, Eosinophils % 1.0, Basophils % 0.6, Absolute Granulocytes 4.2, Absolute Lymphocytes 0.8 L, Absolute Monocytes 0.5, Absolute Eosinophils 0.1, Absolute Basophils 0 Microbiology 08/30 2253 BLOOD: Blood Culture - RECD 08/30 2215 BLOOD: Blood Culture - RECD 08/30 2143 LOWER RESP: Respiratory Culture - ORD 08/30 2143 LOWER RESP: Gram Stain - ORD 08/30 1999 NASOPHARYN: Influenza Virus A & B Rapid Smear - COMP Diagnostic Data EKG Results atrial fibrillation with PVCs CXR Results IMPRESSION: Findings suspicious for left lower lobe pneumonia with small associated effusion. Likely trace right pleural effusion. Assessment/Plan Assessment: The patient is an 82-year-old gentleman with past medical history of CAD with CABG x4 >10y ago, ishemic cardiomyopathy with recent new left bundle branch block which triggered cardiac catheterization (04/2017) showing severe three- vessel nikolai coronary artery disease, systolic CHF with EF 35-40%, history of a PE on Coumadin with prior IVC filter, diabetes, hypertension, hyperlipidemia and BPH. The patient presented to [facility] [facility] on [facility]/30 with complaint of feeling dizzy and weak. -VS BP 103/63, oxygen saturation 90% on room air patient was put on 2 L and has been maintaining oxygen saturations at 97% -Pertinent labs potassium 3.0, anion gap 18, lactic acid 3.4. BNP 1730 INR 3.03 -In ED patient received 500 mL of normal saline, potassium supplementation 60 mEq, ceftriaxone and azithromycin The patient is being admitted to telemetry floor and is being treated and evaluated for following conditions #New onset atrial fibrillation The patient's EKG shows atrial fibrillation with absence of fevers. Patient is on Coumadin for PE and he is also taking metoprolol. His heart rate is in 70s. So he is rate controlled and anticoagulated. However he will require further evaluation for new onset. His dizziness and weakness can be secondary to atrial fibrillation. -Continuous telemetry monitoring -Cardiac consult in the morning -Echocardiogram -Repeat EKG and troponins #Radiographic evidence of left lower lobe pneumonia with small associated effusion Patient is afebrile without white count. Does not have any respiratory complaints other than the cough which started today. X-rays positive for left lower lobe consolidation. Patient is maintaining oxygen saturation in 90s. Clinically low suspicion of pneumonia. He received IV ceftriaxone and azithromycin in the ED. -Monitor fever and WBC curve, monitor oxygen saturation -Monitor patient off antibiotics -Sputum culture -Urinary Legionella and streptococcal antigen #Hypokalemia Patient presented with potassium of 3.2 likely secondary to Lasix. It was repleted in ED -Monitor BP and replete aggressively #Anion gap acidosis(lactic acidosis) Patient is presenting with anion gap of 18 and lactic acid of 3.4. Secondary to infectious process (pneumonia)??? Other possibilities metformin? Alcohol daily scotch use?? -Repeat lactic acid 1.3 #History of PE status post IVC supra therapeutic INR Patient is currently on Coumadin 6 mg every day except Friday and Friday when he takes 3 mg -Monitor INR daily and dose Coumadin accordingly -Confirm Coumadin home dose from the pharmacy #History of CHF Last admission was for acute exacerbation of CHF -Repeat echocardiogram for new onset atrial fibrillation -Daily weights -Ins and outs -1000 ML fluid restriction -Continue home Lasix #DM -Accu-Cheks, insulin sliding scale holding, oral antiDM agents #Chronic medical conditions history of CAD, hypertension,hyperlipidemia, BPH, GERD Continue on aspirin and statin, metoprolor imdur, renxa, Entrsto,tamsulisin, vesicare,finasterdie and Omeprazole #FC/DVT prophylaxis with Lovenox/heart healthy diet As Ranked By This Provider Problem List: 1. Diabetes mellitus Core Measures/Misc (04/20) Sepsis (View protocol) Sepsis Present: No Mayco Ricks 08/31/17 0115: General Information and HPI Allergies/Medications Home Med list Aspirin (Aspirin*) 81 MG TAB.CHEW 81 MG PO DAILY HEART HEALTH Cyanocobalamin (Vitamin B-12) (Vitamin B-12) 100 MCG TABLET 1 TAB PO DAILY SUPPLEMENT (Reported) Esomeprazole (Nexium) 40 MG CAPSULE.DR 1 CAP PO DAILY reflux (Reported) Ferrous Sulfate 325 MG (65 MG IRON) TABLET 1 TAB PO DAILY SUPPLEMENT ( Reported) Finasteride (Proscar) 5 MG TABLET 1 TAB PO DAILY BHP (Reported) Furosemide (Lasix) 40 MG TABLET 1 TAB PO DAILY diuretic Isosorbide Mononitrate (Isosorbide Mononitrate ER) 60 MG TAB.ER.24H 60 MG PO DAILY Heart health Metformin HCl (Metformin HCl ER) 500 MG TAB.ER.24H 1 TAB PO BID DM (Reported) Metoprolol Succ XL (Toprol XL) 25 MG TAB 25 MG PO DAILY HEART HEALTH Nitroglycerin (Nitrostat) 0.3 MG TAB.SUBL 1 TAB SL AD PRN CHEST PAIN ( Reported) Ranolazine (Ranexa) 500 MG TAB.ER.12H 2 TAB PO BID Heart (Reported) Rosuvastatin Calcium (Crestor) 10 MG TABLET 1 TAB PO DAILY GI (Reported) Sacubitril/Valsartan (Entresto 49 MG-51 MG Tablet) 49 MG-51 MG TABLET 1 TAB PO BID Heart Failure Solifenacin Succinate (Vesicare) 10 MG TABLET 0.5 TAB PO DAILY prostate ( Reported) Tamsulosin HCl (Flomax) 0.4 MG CAP.ER.24H 1 CAP PO DAILY prostate (Reported) Ubidecarenone (Co Q-10) 100 MG CAPSULE 1 CAP PO DAILY SUPPLEMENT (Reported) Warfarin Sodium 6 MG TABLET 1 TAB PO DAILY DVT AND PE (Reported) 6 MG DAILY EXCEPT SAT AND SUN WHEN TAKES 3 MG Core Measures/Misc (04/20) Acute Coronary Syndrome ACS Diagnosis: No Congestive Heart Failure Congestive Heart Failure Diagnosis No Cerebrovascular Accident CVA/TIA Diagnosis: No VTE (View Protocol) VTE Risk Factors Age>40 No Mechanical VTE Prophylaxis d/t N/A MechProphylax Ordered No VTE Pharm Prophylaxis d/t Supratherapeutic INR Resident Review Statement Resident Statement: discussed with general internist and physician leader Other Findings: 82-year-old male with a past medical history of coronary artery disease with prior CABG, ischemic cardiomyopathy with recent new left bundle branch block which triggered cardiac catheterization (04/2017) showing severe three-vessel nikolai coronary artery disease, systolic CHF with EF 35-40%, history of a PE on Coumadin with prior IVC filter, diabetes, hypertension, hyperlipidemia and BPH presented to ER with complaint of dizziness, feeling weak, one episode of nausea and vomiting. He was recently admitted on [facility] on August 01 and was treated for hypoxic respiratory failure secondary to acute on chronic CHF. According to patient since discharge his bowel movement is loose but small amount. He reports exertional dyspnea. He denies any fever, chills, chest pain or discomfort, palpitations, abdominal pain, urinary symptoms. He has bilateral lower extremity swelling. Lives alone. He saw his shaper setter last week and according to patient everything was okay. Vitals on admission: Temperature 98.8, pulse 68, respiratory rate 16, blood pressure 103/63 and oxygen saturation 90% on room air. Pertinent physical exam findings: Lungs diminished breath sounds on the bases but no crackles are wheezes. Heart rate is irregular. 1+ pedal edema bilateral lower extremities. Pertinent labs: Potassium 3.2, anion gap 18, lactic acid 3.4 and repeat is 1.1, proBNP 1730 INR 3.03. Chest x-ray showed findings suspicious for left lower lobe pneumonia with small associated effusion. EKG showed atrial fibrillation with PVCs In ER he was given potassium supplement, Normal saline 500 bolus 1, ceftriaxone and azithromycin. Assessment and plan 82-year-old male with a past medical history of coronary artery disease with prior CABG, ischemic cardiomyopathy with recent new left bundle branch block which triggered cardiac catheterization (04/2017) showing severe three-vessel nikolai coronary artery disease, systolic CHF with EF 35-40%, history of a PE on Coumadin with prior IVC filter, diabetes, hypertension, hyperlipidemia and BPH. Problem list 1. Chest X-ray suggestive of left lower lobe pneumonia. Patient doesn't have any respiratory complaints. Saturating well on room air. Denies fever. His WBC count is normal. Clinically suspicion for pneumonia is low. 2. Hypokalemia. He is on Lasix at home without any potassium supplement 3. Anion gap lactic acidosis 4. Slightly supratherapeutic INR 5. New onset A. fib, rate controlled 6. History of coronary artery disease status post CABG, history of systolic CHF with EF 35-40% 7. History of hypertension 8. History of hyperlipidemia 9. History of diabetes 10. History of BPH PLAN * Admission on telemetry floor * Continue telemetry monitoring and watch heart rate * We will continue ceftriaxone and azithromycin for now * Follow-up sputum and blood cultures * We will repeat EKG and troponin in a.m. * Echocardiogram * Cardio consult in a.m. * Continue all his home medications * Check INR in the morning and dose Coumadin accordingly. Goal INR 2-3 * 1 L fluid restriction * Strict I's and O's * Leg elevation * check electrolytes daily and replete accordingly * Accu-Cheks and NovoLog sliding scale * Pain management pathway * DVT prophylaxis * Full code Eleazar RODRIGUEZ, [facility] 08/31/17 0325: Attending MD Review Statement Attending Statement Attending MD Statement: examined this patient, discuss w/resident/PA/ADJUNCT ART HISTORY INSTRUCTOR, agreed w/resident/PA/ADJUNCT ART HISTORY INSTRUCTOR, discussed with family, reviewed images, amended to note Attending Assessment/Plan: 82 yo M with h/o PE on coumadin with prior IVC filter, DM, HTN, CAD s/p CABG, ischemic cardiomyopathy with recent cardiac cath showing patent grafts, recently admitted (08/01 08/04) for acute on chronic systolic heart failure, is here for evaluation of nausea, dizziness and weakness. Patient was doing well this morning except for exertional dyspnea. Later this evening, he has an episode of diarrhea, felt nauseous, dizzy and too weak to get off the toilet. He then called 911. He did have an episode of vomiting at home, but none after. He has chronic cough with clear to white phlegm. Denies fever/ chills, chest pain, abdominal pain or urinary symptoms. He is due to see Dr. Wang for ?Bi- Ventricular AICD. Vitals: afebrile, HR 60-80's, BP 121/76 --> 96/51 --> 102/64, 93% on RA --> 99% on 1L. Exam: AAO, in no distress, MMM, Neck supple, mild JVD, Chest reduced breath sounds at bases L>R, no rhonchi, crackles or wheeze, Heart S1S2 irregular intermittently regular, Abd soft, NT. LE b/l 2+ pitting pedal edema. Labs: WBC 5.6, INR 3.03, K 3.2, AG 18, glucose 177, lactic acid 3.4 --> 1.1, troponin 0.03, proBNP 1730. Flu swab is negative. CXR: findings suspicious for left lower lobe pneumonia with associated effusion, trace right pleural effusion. EKG: irregular, appears Afib as no discernible 'p' waves with multiple PVCs and LBBB (previous EKG was Sinus rhythm with PVCs Jul 2017). Echo (2017): EF 35-40%, pulmonary hypertension, biatrial enlargement. Assessment and plan: In the ER, patient received IV ceftriaxone and azithro for a left lower lobe pneumonia, however, he has no leukocytosis or fever, his cough is chronic with clear-white phlegm. His CXR is suggestive of a left effusion which seems to have been present on CXR from Aug 01. Patient had a CXR on Aug 19 showed pulmonary vascular congestion and small b/l pleural effusions. I am not convinced that he has a pneumonia. His EKG shows Afib, with no evidence of 'p' waves and multiple PVCs. On the Tele monitor he is intermittently regular, it is possible that he has new onset atrial fibrillation although he is rate controlled and he is anticoagulated on warfarin. The atrial fibrillation may be causing him intermittent exertional dyspnea as it could be exacerbating his heart failure. He is not in florid pulmonary edema and his proBNP is elevated although lower than previous, and given his transient hypotension, holding off IV diuresis. 1. New onset atrial fibrillation 2. Chronic systolic heart failure with mild exacerbation 3. CXR s/o LLL pneumonia, although patient is afebrile, no leukocytosis and clinically low suspicion. 4. Hypokalemia 5. Diarrhea, nausea, vomiting ?viral gastroenteritis 6. Supratherapeutic INR 7. Lactic acidosis resolved 8. H/o CAD, ischemic cardiomyopathy - Admit to Telemetry - Monitor for arrhythmias - Strict I/O's, daily weights, fluid restriction of 1000 mls - Serial EKG and troponin - Obtain Echocardiogram - Obtain cardio consult - Replete electrolytes to keep K > 4.0, Mag > 2.0 - Panculture, patient received ceftriaxone and azithro in ER, will watch off antibiotics for now - Check urinalysis, urine legionella and strep Ag - Follow sputum culture - No IV diuresis due to borderline BP, will resume home dose of lasix in AM - Check orthostats - Resume metoprolol, imdur, aspirin, ranexa, crestor and entresto. - If GI symptoms persist, consider CT abd/pelvis and stool studies. - Hold coumadin, recheck INR in AM - Diabetes management DVT ppx high INR on coumadin. Full code. I spoke with patient's family member Zechariah and informed him about patient being admitted.
[2017-08-30] MEDS ORDERED: PROSCAR5 M1 PO (23:55)
[2017-08-30] MEDS ORDERED: COUMADIN10 M1 PO (23:58)
[2017-08-31] MEDS ORDERED: WARFARIN SODIUM6 M1 PO (00:24)
[2017-08-31 02:20] VITALS: BP 102/64
[2017-08-31 02:32] VITALS: BP 102/64
--- NOTE | 2017-08-31 03:27 | Admission Certification ---
Admission Certification Certification Statement - As attending physician, I certify that at the time of - admission, based on clinical presentation, severity of - symptoms, need for further diagnostic testing and - therapeutic interventions, and risk of adverse outcomes - without in-hospital treatment, in my clinical assessment, - this patient requires an acute hospital stay for a minimum - of two nights or longer. I have also considered psychsocial - factors such as support system, advanced age, financial - issues, cognitive issues, and failed out-patient treatments, - past re-admission history, safety of patient, and lack of - compliance as applicable. Specific rationale supporting this admission is: New onset afib, mild exacerbation of congestive heart failure, possible community acquired pneumonia.
[2017-08-31 08:01] LABS: ABSOLUTE BASOPHIL COUNT 0 /CUMM (0.0-0.2); ABSOLUTE EOSINOPHIL COUNT 0 /CUMM (0.0-0.7); ABSOLUTE GRANULOCYTE CT 4.7 /CUMM (1.4-6.5); ABSOLUTE LYMPH COUNT 0.9 /CUMM (1.2-3.4); ABSOLUTE MONOCYTE COUNT 0.6 /CUMM (0.10-0.60); BASOPHIL % 0.6 % (0.0-2.0); EOSINOPHIL % 0.5 % (0-5); GRANULOCYTE % 76.2 % (42.2-75.2); HEMATOCRIT 40.9 % (42-52); MEAN CORPUSCULAR HGB 29.8 PG (27.0-31.0); MEAN CORPUSCULAR HGB CONC 32.8 G/DL (33.0-37.0); MEAN CORPUSCULAR VOLUME 91.1 FL (80.0-94.0); MEAN PLATELET VOLUME 9.2 FL (7.4-10.4); PLATELET COUNT 200 /CUMM (130-400); RBC DISTRIBUTION WIDTH 16.9 % (11.5-14.5); RED BLOOD CELL CT 4.49 /CUMM (4.70-6.10); WHITE BLOOD CELL COUNT 6.2 /CUMM (4.8-10.8)
[2017-08-31 08:13] LABS: PT 37.6 SEC (9.4-12.5)
--- NOTE | 2017-08-31 09:05 | PN- Housestaff ---
Zafar RODRIGUEZ,Rocio 08/31/17 0904: Subjective Follow-up For: New onset atrial fibrillation Complaints: no complaints Tele-Events Since Last Visit: Atrial fibrillation heart rate 50-75 Subjective: Patient was seen and examined by me at bedside today. No overnight events. He offers no complaints. He says he slept well overnight. He is eager to go home. He denies chest pain, chest pressure, shortness of breath, nausea, vomiting, fevers. Review of Systems Constitutional: Reports: no symptoms. Cardiovascular: Reports: no symptoms. Respiratory: Reports: no symptoms. Gastrointestinal: Reports: no symptoms. Genitourinary: Reports: no symptoms. Musculoskeletal: Reports: no symptoms. Skin: Reports: no symptoms. Neurological/Psychological: Reports: no symptoms. Objective Last 24 Hrs of Vital Signs/I&O Vital Signs Date Time Temp Pulse Resp B/P B/P Pulse O2 O2 Flow FiO2 Mean Ox Delivery Rate 08/31 1214 110/64 08/31 1214 110/64 08/31 0948 72 102/50 08/31 0232 97.8 73 20 102/64 99 Nasal 1.0L Cannula 08/31 0220 97.8 73 20 102/64 93 Room Air 08/31 0219 99 Nasal 1.0L Cannula 08/31 0118 67 16 102/62 100 Nasal 2.0L Cannula 08/31 0011 98.0 69 20 96/51 100 Room Air 08/30 2256 98.0 69 18 121/67 97 Non 2.0L ReBreather 08/30 2010 Nasal 2.0L Cannula 08/30 2002 98.8 68 16 103/63 90 Room Air Intake & Output 08/31 1600 08/31 0800 08/31 0000 Intake Total 240 500 Output Total Balance 240 500 Intake, IV 500 Intake, Oral 240 0 Patient 252 lb 252 lb Weight Weight Reported by Patient Measurement Method Physical Exam General Appearance: Alert, Oriented X3, Cooperative, No Acute Distress Cardiovascular: Normal S1, Normal S2, No Murmurs, IRREGULAR Lungs: Normal Air Movement Abdomen: Soft, No Tenderness, No Hepatospenomegaly Neurological: Strength at 5/5 X4 Ext, Normal Tone, Sensation Intact Current Medications: Current Medications Sig/Franki Start time Last Medication Dose Route Stop Time Status Admin Acetaminophen 650 MG Q8P PRN 08/30 2345 AC PO Aspirin 81 MG DAILY 08/31 1000 AC 08/31 PO 0948 Atorvastatin Calcium 40 MG 1700 08/31 1700 AC PO Azithromycin 500 MG DAILY@08/31 2200 CAN Dextrose/Water 250 ML IV Azithromycin 500 MG ONCE ONE 08/30 2144 DC 08/30 Dextrose/Water 250 ML IV 08/30 2243 225 Ceftriaxone Sodium 1,000 MG DAILY@08/31 2200 CAN IV Ceftriaxone Sodium 0 .STK-MED ONE 08/30 2243 DC .ROUTE Ceftriaxone Sodium 1,000 MG ONCE ONE 08/30 2144 DC 08/30 IV 08/30 2145 225 Finasteride 5 MG DAILY 08/31 1000 AC 08/31 PO 0948 Furosemide 40 MG DAILY 08/31 1000 AC 08/31 PO 0948 Insulin Aspart 0 TIDAC 08/31 0800 AC 08/31 SC 1235 Isosorbide 60 MG DAILY 08/31 1000 AC Mononitrate PO Magnesium Chloride 64 MG DAILY 08/31 0730 AC 08/31 PO 0948 Metoprolol Succinate 25 MG DAILY 08/31 1000 AC 08/31 PO 1214 Non-Formulary 0 SEE ADMIN CRITERIA 08/31 0030 UNV Medication ANY Omeprazole 40 MG DAILY AC 08/31 0700 AC 08/31 PO 0948 Oxybutynin Chloride 2.5 MG BID 08/31 1000 AC PO Pantoprazole Sodium 40 MG ONE TIME ONE 08/31 0045 CAN IV 08/31 0046 Potassium Chloride 0 .STK-MED ONE 08/30 2108 DC PO Potassium Chloride 60 MEQ ONCE ONE 08/30 2100 DC 08/30 PO 08/30 2100 210 Ranolazine 1,000 MG BID 08/31 1000 AC 08/31 PO 1214 Sodium Chloride 500 ML BOLUS ONE 08/30 2199 DC IV 08/30 2258 Sodium Chloride 500 ML BOLUS ONE 08/30 2100 DC 08/30 IV 08/30 Tamsulosin HCl 0.4 MG DAILY 08/31 1000 AC 08/31 PO 0948 Last 24 Hrs of Lab/Louis Results Last 24 Hrs of Labs/Mics: Laboratory Tests 08/31/17 0640: Anion Gap 14, Estimated GFR > 60, BUN/Creatinine Ratio 18.9, Magnesium 1.7, Troponin I 0.03, PT 37.6 H, INR 3.63 H, CBC w Diff NO MAN DIFF REQ, RBC 4.49 L, MCV 91.1, MCH 29.8, MCHC 32.8 L, RDW 16.9 H, MPV 9.2, Gran % 76.2 H, Lymphocytes % 13.8 L, Monocytes % 8.9, Eosinophils % 0.5, Basophils % 0.6, Absolute Granulocytes 4.7, Absolute Lymphocytes 0.9 L, Absolute Monocytes 0.6, Absolute Eosinophils 0, Absolute Basophils 0 08/31/17 0600: CBC w Diff Cancelled, WBC Cancelled, RBC Cancelled, Hgb Cancelled, Hct Cancelled , MCV Cancelled, MCH Cancelled, MCHC Cancelled, RDW Cancelled, Plt Count Cancelled, MPV Cancelled 08/30/17 2342: Lactic Acid 1.1 08/30/17 2000: Anion Gap 18 H, Estimated GFR > 60, BUN/Creatinine Ratio 17.5, Glucose 177 H, Lactic Acid 3.4 H, Calcium 8.2 L, Magnesium 1.6, Total Bilirubin 0.6, AST 15 L, ALT 19 L, Alkaline Phosphatase 43, Troponin I 0.03, Hot-T-Bsktjjaxalw Pept 1730 H, Total Protein 6.4, Albumin 3.6, Globulin 2.8, Albumin/Globulin Ratio 1.3, PT 31.5 H, INR 3.03 H, APTT 39 H, CBC w Diff NO MAN DIFF REQ, RBC 4.50 L, MCV 90.9, MCH 29.3, MCHC 32.3 L, RDW 16.7 H, MPV 8.9, Gran % 75.6 H, Lymphocytes % 14.6 L, Monocytes % 8.2, Eosinophils % 1.0, Basophils % 0.6, Absolute Granulocytes 4.2, Absolute Lymphocytes 0.8 L, Absolute Monocytes 0.5, Absolute Eosinophils 0.1, Absolute Basophils 0 08/30/171950: Urine Color Cancelled, Urine Clarity Cancelled, Urine pH Cancelled, Ur Specific [place] Cancelled, Urine Protein Cancelled, Urine Ketones Cancelled, Urine Nitrite Cancelled, Urine Bilirubin Cancelled, Urine Urobilinogen Cancelled, Ur Leukocyte Esterase Cancelled, Ur Microscopic Cancelled, Urine Hemoglobin Cancelled, Urine Glucose Cancelled Microbiology 08/31 1033 URINE ROUT: Legionella Antigen - COLB 08/304 BLOOD: Blood Culture - RES 08/30 2216 BLOOD: Blood Culture - RES 08/30 2143 LOWER RESP: Respiratory Culture - COLB 08/30 2143 LOWER RESP: Gram Stain - COLB 08/30 1999 NASOPHARYN: Influenza Virus A & B Rapid Smear - COMP Assessment/Plan Assessment: The patient is an 82-year-old gentleman with past medical history of CAD with CABG x4 >10y ago, hemic cardiomyopathy with recent new left bundle branch block which triggered cardiac catheterization (04/2017) showing severe three-vessel [place] coronary artery disease, systolic CHF with EF 35-40%, history of a PE on Coumadin with prior IVC filter, diabetes, hypertension, hyperlipidemia and BPH. Patient came to [facility] with complaints of dizziness/weakness and found to be in new onset atrial fibrillation Assessment and plan #New onset atrial fibrillation Patient heart rate is controlled patient is on warfarin, metoprolol will continue the same. Coumadin today held in view of supratherapeutic INR. Patient has a borderline blood pressure of 105/50. We will hold Imdur and continue rest of the medication. -Continuous telemetry monitoring -Cardiac follow-up appreciated -Echocardiogram #Radiographic evidence of left lower lobe pneumonia with small associated effusion Patient is afebrile without white count. Does not have any respiratory complaints other than the cough which started today. X-rays positive for left lower lobe consolidation. Patient is maintaining oxygen saturation in 90s. Clinically low suspicion of pneumonia. He received IV ceftriaxone and azithromycin in the ED. -Monitor fever and WBC curve, monitor oxygen saturation -Monitor patient off antibiotics -Follow up Sputum culture, Urinary Legionella and streptococcal antigen #Hypokalemia Patient presented with potassium of 3.2 likely secondary to Lasix. It was repleted in ED Potassium today 4. BP in a.m. #History of PE status post IVC supra therapeutic INR Patient is currently on Coumadin 6 mg every day except Friday and Friday when he takes 3 mg -Monitor INR daily and dose Coumadin accordingly #History of CHF Last admission was for acute exacerbation of CHF -Repeat echocardiogram for new onset atrial fibrillation -Daily weights. Patient had a 150 mL of high colored urine output at 11 a.m. today. We will send urine analysis. -Ins and outs -1000 ML fluid restriction -Continue home Lasix #DM -Accu-Cheks, insulin sliding scale holding, oral antiDM agents #Chronic medical conditions history of CAD, hypertension,hyperlipidemia, BPH, GERD Continue on aspirin and statin, metoprolor imdur, renxa, Entrsto,tamsulisin, vesicare,finasterdie and Omeprazole #FC/DVT prophylaxis with Lovenox/heart healthy diet Problem List: 1. Atrial fibrillation Pain Ratin Pain Location: NONE Pain Goal: Remain pain free Pain Plan: TYLENOL Tomorrow's Labs & Rationales: BEP,CBC Steven Amosbridget 08/31/17 1608: Attending MD Review Statement Attending Statement Attending MD Statement: examined this patient, discuss w/resident/PA/SOLAR APPLICATIONS DEVELOPMENT ENGINEER, agreed w/resident/PA/SOLAR APPLICATIONS DEVELOPMENT ENGINEER, reviewed EMR data (avail), discussed with nursing Attending Assessment/Plan: Afib - rate under control now. Pt already on anticoagulation secondary to his h/ o PE/DVT and has IVC filter. will cont his current medication. will f/u on telemetry . High INR- hold coumadin tonight. BP borderline low- so holding imdur. cont ranexa for his h/o cad s/p cabg. Hypokalemia- resolved.
[2017-08-31 14:38] VITALS: BP 108/50
--- NOTE | 2017-08-31 19:10 | Cons- Cardiology ---
General Information and HPI Consulting Request Date of Consult: 08/31/17 Requested By: Eleazar RODRIGUEZ,Josh Reason for Consult: Atrial fibrillation History of Present Illness: The patient is an 82-year-old male with history of coronary artery disease, diabetes mellitus, hypertension, hyperlipidemia, CABG, ischemic cardiomyopathy, and systolic heart failure. He had a cardiac catheterization in April 2017 showing severe triple-vessel CAD with. I forgetting saphenous vein graft to second obtuse marginal, and occluded saphenous being graft to the distal RCA. There was no obvious evidence of the PARTIDA graft. He was advised to have medical management at that time. He has a history of pulmonary embolism for which she is treated with Coumadin, with prior IVC filter he was admitted one month ago for acute heart failure exacerbation, and discharge on August 05. He presented to the emergency room with complaint of feeling dizzy and weak, the symptoms began while he was using the bathroom. After leaving the bathroom he walked to the kitchen where he continued to have dizziness with vomiting. EMS arrived and brought him to the emergency department where he was found to be in atrial fibrillation which is a new finding for him. He has an appointment scheduled with Dr. Wang to be evaluated for ICD placement. No chest pain. No syncope. No nausea or vomiting. No diaphoresis. No prior history of atrial fibrillation. Allergies/Medications Allergies: Coded Allergies: NO KNOWN ALLERGIES (NONE 08/01/17) Home Med List: Aspirin (Aspirin*) 81 MG TAB.CHEW 81 MG PO DAILY HEART [facility] Cyanocobalamin (Vitamin B-12) (Vitamin B-12) 100 MCG TABLET 1 TAB PO DAILY SUPPLEMENT (Reported) Esomeprazole (Nexium) 40 MG CAPSULE.DR 1 CAP PO DAILY reflux (Reported) Ferrous Sulfate 325 MG (65 MG IRON) TABLET 1 TAB PO DAILY SUPPLEMENT ( Reported) Finasteride (Proscar) 5 MG TABLET 1 TAB PO DAILY BHP (Reported) Furosemide (Lasix) 40 MG TABLET 1 TAB PO DAILY diuretic Isosorbide Mononitrate (Isosorbide Mononitrate ER) 60 MG TAB.ER.24H 60 MG PO DAILY Heart [facility] Metformin HCl (Metformin HCl ER) 500 MG TAB.ER.24H 1 TAB PO BID DM (Reported) Metoprolol Succ XL (Toprol XL) 25 MG TAB 25 MG PO DAILY HEART [facility] Nitroglycerin (Nitrostat) 0.3 MG TAB.SUBL 1 TAB SL AD PRN CHEST PAIN ( Reported) Ranolazine (Ranexa) 500 MG TAB.ER.12H 2 TAB PO BID Heart (Reported) Rosuvastatin Calcium (Crestor) 10 MG TABLET 1 TAB PO DAILY GI (Reported) Sacubitril/Valsartan (Entresto 49 MG-51 MG Tablet) 49 MG-51 MG TABLET 1 TAB PO BID Heart Failure Solifenacin Succinate (Vesicare) 10 MG TABLET 0.5 TAB PO DAILY prostate ( Reported) Tamsulosin HCl (Flomax) 0.4 MG CAP.ER.24H 1 CAP PO DAILY prostate (Reported) Ubidecarenone (Co Q-10) 100 MG CAPSULE 1 CAP PO DAILY SUPPLEMENT (Reported) Warfarin Sodium 6 MG TABLET 1 TAB PO DAILY DVT AND PE (Reported) 6 MG DAILY EXCEPT SAT AND SUN WHEN TAKES 3 MG Current Medications: Current Medications Sig/Franki Start time Last Medication Dose Route Stop Time Status Admin Acetaminophen 650 MG Q8P PRN 08/30 2345 AC PO Aspirin 81 MG DAILY 08/31 1000 AC 08/31 PO 0948 Atorvastatin Calcium 40 MG 1700 08/31 1700 AC 08/31 PO 1717 Azithromycin 500 MG DAILY@08/31 2200 CAN Dextrose/Water 250 ML IV Azithromycin 500 MG ONCE ONE 08/30 2144 DC 08/30 Dextrose/Water 250 ML IV 08/30 2243 2255 Ceftriaxone Sodium 1,000 MG DAILY@08/31 2200 CAN IV Ceftriaxone Sodium 0 .STK-MED ONE 08/304 DC .ROUTE Ceftriaxone Sodium 1,000 MG ONCE ONE 08/30 2144 DC 08/30 IV 08/30 2146 2255 Finasteride 5 MG DAILY 08/31 1000 AC 08/31 PO 0948 Furosemide 40 MG DAILY 08/31 1000 AC 08/31 PO 0948 Insulin Aspart 0 TIDAC 08/31 0800 AC 08/31 SC 1716 Isosorbide 60 MG DAILY 08/31 1000 AC Mononitrate PO Magnesium Chloride 64 MG DAILY 08/31 0730 AC 08/31 PO 0948 Metoprolol Succinate 25 MG DAILY 08/31 1000 AC 08/31 PO 1214 Non-Formulary 0 SEE ADMIN CRITERIA 08/31 0030 CAN Medication ANY Omeprazole 40 MG DAILY AC 08/31 0700 AC 08/31 PO 0948 Oxybutynin Chloride 2.5 MG BID 08/31 1000 AC PO Pantoprazole Sodium 40 MG ONE TIME ONE 08/31 0045 CAN IV 08/31 0046 Potassium Chloride 0 .STK-MED ONE 08/30 2108 DC PO Potassium Chloride 60 MEQ ONCE ONE 08/30 2100 DC 08/30 PO 08/30 210 210 Ranolazine 1,000 MG BID 08/31 1000 AC 08/31 PO 1214 Sacubitril/Valsartan 2 TAB BID 08/31 1500 AC 08/31 PO 08/31 2201 1717 Sodium Chloride 500 ML BOLUS ONE 08/30 2200 DC IV 08/30 2259 Sodium Chloride 500 ML BOLUS ONE 08/30 2100 DC 08/30 IV 08/30 215 210 Tamsulosin HCl 0.4 MG DAILY 08/31 1000 AC 08/31 PO 0948 Review of Systems Review of Systems: No rash. No tremor. No hemoptysis. No hematemesis. All other systems were reviewed, and were noted to be negative. Past History Travel History Traveled to [place] past 21 day No Medical History Neurological: NONE EENT: NONE Cardiovascular: CHF, hypertension, hyperlipidemia Respiratory: pneumonia Gastrointestinal: constipation Hepatic: NONE Renal: NONE Musculoskeletal: NONE Psychiatric: NONE Endocrine: diabetes Blood Disorders: DVT, PE Cancer(s): NONE GLOVE FORMER/Reproductive: NONE Surgical History Surgical History: appendectomy, CABG (X 4 MORE THAN 10 YEARS AGO), cholecystectomy, IVC FILTER Family History Relations & Conditions If Any: FATHER (heart disease). Psychosocial History Where Do You Live? Home Who Do You Live With? self Services at Home: None Primary Language: Maldivian Smoking Status: Former Smoker ETOH Use: 1-2 SCOTCH PER DAY Illicit Drug Use: denies illicit drug use Functional Ability ADLs Independent: dressing, eating, toileting, bathing. Ambulation: independent IADLs Independent: shopping, housework, finances, food prep, telephone, transportation , medication admin. Exam & Diagnostic Data Vital Signs and I&O Vital Signs Date Time Temp Pulse Resp B/P B/P Pulse O2 O2 Flow FiO2 Mean Ox Delivery Rate 08/31 1438 97.8 65 20 108/50 94 Nasal Cannula 08/31 1214 110/64 08/31 1214 110/64 08/31 0948 72 102/50 08/31 0800 99 Nasal 1.0L Cannula 08/31 0232 97.8 73 20 102/64 99 Nasal 1.0L Cannula 08/31 0220 97.8 73 20 102/64 93 Room Air 08/31 0219 99 Nasal 1.0L Cannula 08/31 0118 67 16 102/62 100 Nasal 2.0L Cannula 08/31 0011 98.0 69 20 96/51 100 Room Air 08/30 2256 98.0 69 18 121/67 97 Non 2.0L ReBreather 08/30 2010 Nasal 2.0L Cannula 08/30 2002 98.8 68 16 103/63 90 Room Air Intake & Output 08/31 1600 08/31 0800 08/31 0000 08/30 1600 08/30 0800 08/30 0000 Intake Total 540 240 500 Output Total 150 Balance 390 240 500 Intake, IV 500 Intake, Oral 540 240 0 Number 0 Bowel Movements Output, Urine 150 Patient 252 lb 252 lb Weight Weight Reported by Patient Measurement Method Physical Exam: Gen: The patient is in no acute distress HEENT: Normal nose, ears, and oropharynx. Pupils equal bilaterally. Conjunctiva normal. Neck: Supple with no JVD, no masses, and no thyromegaly Lungs: Clear to auscultation with normal respiratory effort Heart: Irregularly irregular, S1, S2, no murmurs. 1+ peripheral edema, 2+ pulses in the lower extremities bilaterally Abdomen: Soft, nontender, no masses. No hepatomegaly. No splenomegaly Extremities: No clubbing or cyanosis. Normal muscle strength in the upper and lower extremities Skin: Normal skin turgor with no skin ulcers or lesions noted. Neuro: Cranial nerves intact. Sensation intact Psych: Alert and oriented 3 with appropriate affect Labs/Louis Results: Laboratory Tests 08/31 08/31 1128 0640 Chemistry Sodium (137 - 145 mmol/L) 144 Potassium (3.5 - 5.1 mmol/L) 4.0 Chloride (98 - 107 mmol/L) 99 Carbon Dioxide (22 - 30 mmol/L) 31 H Anion Gap (5 - 16) 14 BUN (9 - 20 mg/dL) 17 Creatinine (0.7 - 1.2 mg/dL) 0.9 Estimated GFR (>60 ml/min) > 60 BUN/Creatinine Ratio (7 - 25 %) 18.9 Magnesium (1.6 - 2.3 mg/dL) 1.7 Troponin I (<0.11 ng/ml) 0.03 Coagulation PT (9.4 - 12.5 SEC) 37.6 H INR (0.90 - 1.17) 3.63 H Hematology CBC w Diff NO MAN DIFF REQ WBC (4.8 - 10.8 /CUMM) 6.2 RBC (4.70 - 6.10 /CUMM) 4.49 L Hgb (14.0 - 18.0 G/DL) 13.4 L Hct (42 - 52 %) 40.9 L MCV (80.0 - 94.0 FL) 91.1 MCH (27.0 - 31.0 PG) 29.8 MCHC (33.0 - 37.0 G/DL) 32.8 L RDW (11.5 - 14.5 %) 16.9 H Plt Count (130 - 400 /CUMM) 200 MPV (7.4 - 10.4 FL) 9.2 Gran % (42.2 - 75.2 %) 76.2 H Lymphocytes % (20.5 - 51.1 %) 13.8 L Monocytes % (1.7 - 9.3 %) 8.9 Eosinophils % (0 - 5 %) 0.5 Basophils % (0.0 - 2.0 %) 0.6 Absolute Granulocytes (1.4 - 6.5 /CUMM) 4.7 Absolute Lymphocytes (1.2 - 3.4 /CUMM) 0.9 L Absolute Monocytes (0.10 - 0.60 /CUMM) 0.6 Absolute Eosinophils (0.0 - 0.7 /CUMM) 0 Absolute Basophils (0.0 - 0.2 /CUMM) 0 Urines Urinalysis LIGHT H Urine Color (YEL,AMB,STR) XIN Urine Clarity (CLEAR) HAZY H Urine pH (5.0 - 8.0) 5.5 Ur Specific [place] (1.001 - 1.035) >= 1.030 Urine Protein (NEG,<30 MG/DL) 100 H Urine Ketones (NEG) TRACE H Urine Nitrite (NEG) POS H Urine Bilirubin (NEG) NEG@ICTO Urine Urobilinogen (0.1 - 1.0 EU/dl) 1.0 Ur Leukocyte Esterase (NEG) NEG Ur Microscopic SEDIMENT EXAMINED Urine RBC (0 - 5 /HPF) 1-3 Urine WBC (0 - 2 /HPF) 5-10 H Ur Epithelial Cells (NONE,FEW) FEW Urine Bacteria (NEG/NONE) FEW H Hyaline Casts (0/LPF) 10-15 H Granular Casts (NONE /LPF) FEW H Urine Mucus (FEW,NONE) MANY H Urine Hemoglobin (NEG) NEG Urine Glucose (N MG/DL) 100 H 08/31 08/30 08/30 0600 2342 2000 Chemistry Sodium (137 - 145 mmol/L) 145 Potassium (3.5 - 5.1 mmol/L) 3.2 L Chloride (98 - 107 mmol/L) 103 Carbon Dioxide (22 - 30 mmol/L) 24 Anion Gap (5 - 16) 18 H BUN (9 - 20 mg/dL) 14 Creatinine (0.7 - 1.2 mg/dL) 0.8 Estimated GFR (>60 ml/min) > 60 BUN/Creatinine Ratio (7 - 25 %) 17.5 Glucose (65 - 99 mg/dL) 177 H Lactic Acid (0.7 - 2.1 mmol/L) 1.1 3.4 H Calcium (8.4 - 10.2 mg/dL) 8.2 L Magnesium (1.6 - 2.3 mg/dL) 1.6 Total Bilirubin (0.2 - 1.3 mg/dL) 0.6 AST (17 - 59 U/L) 15 L ALT (21 - 72 U/L) 19 L Alkaline Phosphatase (< 127 U/L) 43 Troponin I (<0.11 ng/ml) 0.03 Beq-G-[id number] Pept (<125 pg/mL) 1730 H Total Protein (6.3 - 8.2 g/dL) 6.4 Albumin (3.5 - 5.0 g/dL) 3.6 Globulin (1.9 - 4.2 gm/dL) 2.8 Albumin/Globulin Ratio (1.1 - 2.2 %) 1.3 Coagulation PT (9.4 - 12.5 SEC) 31.5 H INR (0.90 - 1.17) 3.03 H APTT (25 - 37 SEC) 39 H Hematology CBC w Diff Cancelled NO MAN DIFF REQ WBC (4.8 - 10.8 /CUMM) Cancelled 5.6 RBC (4.70 - 6.10 /CUMM) Cancelled 4.50 L Hgb (14.0 - 18.0 G/DL) Cancelled 13.2 L Hct (42 - 52 %) Cancelled 40.9 L MCV (80.0 - 94.0 FL) Cancelled 90.9 MCH (27.0 - 31.0 PG) Cancelled 29.3 MCHC (33.0 - 37.0 G/DL) Cancelled 32.3 L RDW (11.5 - 14.5 %) Cancelled 16.7 H Plt Count (130 - 400 /CUMM) Cancelled 239 MPV (7.4 - 10.4 FL) Cancelled 8.9 Gran % (42.2 - 75.2 %) 75.6 H Lymphocytes % (20.5 - 51.1 %) 14.6 L Monocytes % (1.7 - 9.3 %) 8.2 Eosinophils % (0 - 5 %) 1.0 Basophils % (0.0 - 2.0 %) 0.6 Absolute Granulocytes (1.4 - 6.5 /CUMM) 4.2 Absolute Lymphocytes (1.2 - 3.4 /CUMM) 0.8 L Absolute Monocytes (0.10 - 0.60 /CUMM) 0.5 Absolute Eosinophils (0.0 - 0.7 /CUMM) 0.1 Absolute Basophils (0.0 - 0.2 /CUMM) 0 08/30 1950 Urines Urine Color Cancelled Urine Clarity Cancelled Urine pH Cancelled Ur Specific [place] Cancelled Urine Protein Cancelled Urine Ketones Cancelled Urine Nitrite Cancelled Urine Bilirubin Cancelled Urine Urobilinogen Cancelled Ur Leukocyte Esterase Cancelled Ur Microscopic Cancelled Urine Hemoglobin Cancelled Urine Glucose Cancelled Diagnostic Data EKG Results EKG tracing is independently reviewed, and reveals atrial fibrillation with ventricular response of 74, premature ventricular contractions, left bundle branch block CXR Results Findings suspicious for left lower lobe pneumonia with small associated effusion. Likely trace right pleural effusion. Other Results Echocardiogram 04/22/17: Moderate reduced overall left ventricular systolic function with segmental wall motion abnormality in the inferolateral wall.Moderate Pulmonary hypertension.Biatrial enlargement. Assessment/Plan Assessment/Plan The patient is an 82-year-old male with history of CAD, status post CABG, ischemic cardiomyopathy, LVEF 35-40%, diabetes mellitus, and hypertension. He presents with feeling dizzy and weak, and he is found to be in atrial fibrillation which is a new finding for him. Ventricular rate is under control on his usual dose of metoprolol. He is anticoagulated on warfarin because of his history of pulmonary embolism. He is found to have possible evidence of pneumonia. Potassium was noted to be low. Recommendations: * Monitor on telemetry * Continue metoprolol for rate control * Continue warfarin, and dose for INR 2-3 * Recommend diuresis with Lasix 40 mg IV every 12 hours * Monitor input and output * Check basic metabolic profile daily * Repeat echocardiogram * Continue other cardiac medications Consult Acknowledgment - Thank you for your consult request.
[2017-08-31 23:05] VITALS: BP 120/70
[2017-09-01 06:35] VITALS: BP 112/62
--- NOTE | 2017-09-01 08:09 | PN- Housestaff ---
Eb Starkey MD,Ami 09/01/17 0809: Subjective Follow-up For: New onset atrial fibrillation Tele-Events Since Last Visit: A. fib 65-93, PVCs Subjective: Patient visited today, was lying at the bedside comfortably in no acute distress , was alert and oriented. No fever or chills, improved shortness of breathing, no chest pain, no other events. Planned for cardioversion on friday considering low EF. Review of Systems Constitutional: Reports: see HPI. Objective Last 24 Hrs of Vital Signs/I&O Vital Signs Date Time Temp Pulse Resp B/P B/P Pulse O2 O2 Flow FiO2 Mean Ox Delivery Rate 09/01 1419 97.7 70 18 100/58 95 Room Air 09/01 0750 74 11409/01 0750 74 11409/01 0748 74 114/66 09/01 0747 74 114/66 09/01 0635 98.3 80 18 112/62 93 Room Air 08/31 2305 98.6 73 20 120/70 93 08/31 2218 68 104/50 Intake & Output 09/01 1600 09/01 0800 09/01 0000 Intake Total 460 120 350 Output Total 1050 500 Balance 460 -930 -150 Intake, Oral 460 120 350 Number 2 Bowel Movements Output, Urine 1050 500 Physical Exam General Appearance: Alert, Oriented X3, Cooperative, No Acute Distress Skin: No Significant Lesion Skin Temp/Moisture Exam: Warm/Dry Sepsis Skin Exam (color): Normal for Ethnicity HEENT: Atraumatic, EOMI Cardiovascular: Normal S1, Normal S2, Irreg irreg Lungs: Clear to Auscultation Abdomen: Soft, No Tenderness Extremities: improved edema Current Medications: Current Medications Sig/Franki Start time Last Medication Dose Route Stop Time Status Admin Acetaminophen 650 MG Q8P PRN 08/30 2345 AC PO Aspirin 81 MG DAILY 08/31 1000 AC 09/01 PO 0747 Atorvastatin Calcium 40 MG 1700 08/31 1700 AC 08/31 PO 1717 Finasteride 5 MG DAILY 08/31 1000 AC 09/01 PO 0747 Furosemide 40 MG 7:30 AM, & 4:30 PM 09/01 0730 AC 09/01 IV 0542 Furosemide 40 MG DAILY 08/31 1000 DC 08/31 PO 0948 Insulin Aspart 0 TIDAC 08/31 0800 AC 09/01 SC 1147 Isosorbide 60 MG DAILY 08/31 1000 AC 09/01 Mononitrate PO 0750 Magnesium Chloride 64 MG DAILY 08/31 0730 AC 09/01 PO 0747 Metoprolol Succinate 25 MG DAILY 08/31 1000 AC 09/01 PO 0750 Omeprazole 40 MG DAILY AC 08/31 0700 AC 09/01 PO 0541 Oxybutynin Chloride 2.5 MG BID 08/31 1000 AC 09/01 PO 0747 Ranolazine 1,000 MG BID 08/31 1000 AC 09/01 PO 0748 Sacubitril/Valsartan 2 TAB BID 08/31 1500 DC 08/31 PO 08/31 2201 2343 Tamsulosin HCl 0.4 MG DAILY 08/31 1000 AC 09/01 PO 0747 Warfarin Sodium 6 MG COUMADIN 1700 ONE 09/01 1700 AC PO 09/01 1701 Last 24 Hrs of Lab/Louis Results Last 24 Hrs of Labs/Mics: Laboratory Tests 09/01/17 1100: PT 25.3 H, INR 2.43 H 09/01/17 0658: Anion Gap 13, Estimated GFR > 60, BUN/Creatinine Ratio 18.9, CBC w Diff NO MAN DIFF REQ, RBC 4.50 L, MCV 91.1, MCH 29.9, MCHC 32.8 L, RDW 16.7 H, MPV 9.5, Gran % 80.4 H, Lymphocytes % 9.5 L, Monocytes % 8.6, Eosinophils % 1.2, Basophils % 0.3, Absolute Granulocytes 5.9, Absolute Lymphocytes 0.7 L, Absolute Monocytes 0.6, Absolute Eosinophils 0.1, Absolute Basophils 0 08/31/170: Urine Color YEL, Urine Clarity CLEAR, Urine pH 5.5, Ur Specific [place] >= 1.030 , Urine Protein NEG, Urine Ketones NEG, Urine Nitrite NEG, Urine Bilirubin NEG, Urine Urobilinogen 0.2, Ur Leukocyte Esterase NEG, Ur Microscopic EXAM NOT REQUIRED, Urine Hemoglobin NEG, Urine Glucose 100 H Microbiology 08/31 1855 LOWER RESP: Respiratory Culture - CAN Cancelled: POOR QUALITY SPECIMEN, 1NO ([email or web address]) CALLED FOR 08/31 1855 LOWER RESP: Gram Stain - CAN Cancelled: POOR QUALITY SPECIMEN, 1NO ([email or web address]) CALLED FOR Assessment/Plan Assessment: The patient is an 82-year-old gentleman with past medical history of CAD with CABG x4 >10y ago, hemic cardiomyopathy with recent new left bundle branch block which triggered cardiac catheterization (04/2017) showing severe three-vessel [place] coronary artery disease, systolic CHF with EF 35-40%, history of a PE on Coumadin with prior IVC filter, diabetes, hypertension, hyperlipidemia and BPH. Patient came to [facility] with complaints of dizziness/weakness and found to be in new onset atrial fibrillation Patient was admitted to telemetry floor for management of following conditions: New onset atrial fibrillation Patient heart rate is controlled patient is on warfarin, metoprolol will continue the same. Coumadin today held in view of supratherapeutic INR. Patient has a borderline blood pressure of 105/50. We will hold Imdur and continue rest of the medication. -Continuous telemetry monitoring -Cardiac follow-up appreciated -Echocardiogram Exacerbation of CHF Last admission was for acute exacerbation of CHF -Repeat echocardiogram for new onset atrial fibrillation -Daily weights, I/Os -1000 ML fluid restriction -IV Lasix twice a day -Continue Entresto -Plan for cardioversion considering patients need for atrial contraction Abnormal CXR: Radiographic evidence of left lower lobe pneumonia with small associated effusion Patient is afebrile without white count. Does not have any respiratory complaints other than the cough which started today. X-rays positive for left lower lobe consolidation. Patient is maintaining oxygen saturation in 90s. Clinically low suspicion of pneumonia. He received IV ceftriaxone and azithromycin in the ED. -Monitor fever and WBC curve, monitor oxygen saturation -Monitor patient off antibiotics -Follow up Sputum culture, Urinary Legionella and streptococcal antigen Hypokalemia Patient presented with potassium of 3.2 likely secondary to Lasix. It was repleted in ED and was normalized. - continue to monitor On Coumadin, supratherapeutic INR History of PE status post IVC Patient is currently on Coumadin 6 mg every day except Friday and Friday when he takes 3 mg Monitor INR daily and dose Coumadin accordingly - Dosed 6 mg today DM -Accu-Cheks, insulin sliding scale holding, oral antiDM agents Chronic medical conditions: history of CAD, hypertension,hyperlipidemia, BPH, GERD - Continue on aspirin and statin, metoprolor imdur, renxa, Entrsto,tamsulisin, vesicare,finasterdie and Omeprazole FC DVT prophylaxis with warfarin and ALPS heart healthy diet Problem List: 1. Atrial fibrillation 2. Acute heart failure Pain Ratin Pain Location: None Pain Goal: Pain 4 or less Pain Plan: Continue current plan Tomorrow's Labs & Rationales: CBC FROYLAN Alvaro Amos 09/01/17 1454: Attending MD Review Statement Attending Statement Attending MD Statement: examined this patient, discuss w/resident/PA/SHOP CLERK, agreed w/resident/PA/SHOP CLERK, reviewed EMR data (avail), discussed with case mgmt Attending Assessment/Plan: d/w cardiology. pt planned for FALLON and cardioversion on friday. Willl keep her npo past midnight on friday. On lasix 40mg iv bid. d/w pt the care plan.
[2017-09-01 08:34] LABS: ABSOLUTE BASOPHIL COUNT 0 /CUMM (0.0-0.2); ABSOLUTE EOSINOPHIL COUNT 0.1 /CUMM (0.0-0.7); ABSOLUTE GRANULOCYTE CT 5.9 /CUMM (1.4-6.5); ABSOLUTE LYMPH COUNT 0.7 /CUMM (1.2-3.4); ABSOLUTE MONOCYTE COUNT 0.6 /CUMM (0.10-0.60); BASOPHIL % 0.3 % (0.0-2.0); EOSINOPHIL % 1.2 % (0-5); GRANULOCYTE % 80.4 % (42.2-75.2); MEAN CORPUSCULAR HGB 29.9 PG (27.0-31.0); MEAN CORPUSCULAR HGB CONC 32.8 G/DL (33.0-37.0); MEAN CORPUSCULAR VOLUME 91.1 FL (80.0-94.0); MEAN PLATELET VOLUME 9.5 FL (7.4-10.4); PLATELET COUNT 201 /CUMM (130-400); RBC DISTRIBUTION WIDTH 16.7 % (11.5-14.5); WHITE BLOOD CELL COUNT 7.4 /CUMM (4.8-10.8)
[2017-09-01 11:53] LABS: PT 25.3 SEC (9.4-12.5)
--- NOTE | 2017-09-01 12:24 | PN- Cardiology ---
Subjective Subjective: Feels well this morning and denies any dyspnea at rest but still has lower extremity edema. Objective Vital Signs and I&Os Vital Signs Date Time Temp Pulse Resp B/P B/P Pulse O2 O2 Flow FiO2 Mean Ox Delivery Rate 09/01 0750 74 114/66 09/01 0750 74 114/66 09/01 0748 74 114/66 09/01 0747 74 114/66 09/01 0635 98.3 80 18 112/62 93 Room Air 08/31 2305 98.6 73 20 120/70 93 08/31 2218 68 104/50 08/31 1438 97.8 65 20 108/50 94 Nasal Cannula 08/31 1214 110/64 08/31 1214 110/64 Intake & Output 09/01 1600 09/01 0800 09/01 0000 08/31 1600 08/31 0800 08/31 0000 Intake Total 120 350 540 240 500 Output Total 1050 500 150 Balance -930 -150 390 240 500 Intake, IV 500 Intake, Oral 120 350 540 240 0 Number 2 0 Bowel Movements Output, Urine 1050 500 150 Patient 252 lb 252 lb Weight Weight Reported by Patient Measurement Method Physical Exam: General: no apparent distress. Alert. Eyes: No obvious scleral icterus. HEENT: no jugular venous distention Cardiovascular: Normal intensity S1/S2. Irregular Respiratory: No rales or rhonchi Abdomen: Soft, nontender with no guarding or rebound tenderness. Musculoskeletal: No clubbing or cyanosis noted; 2+ lower extremity edema Skin: warm Neurologic: No gross focal deficits noted. Current Medications: Current Medications Sig/Franki Start time Last Medication Dose Route Stop Time Status Admin Acetaminophen 650 MG Q8P PRN 08/30 2345 AC PO Aspirin 81 MG DAILY 08/31 1000 AC 09/01 PO 0747 Atorvastatin Calcium 40 MG 1700 08/31 1700 AC 08/31 PO 1717 Finasteride 5 MG DAILY 08/31 1000 AC 09/01 PO 0747 Furosemide 40 MG 7:30 AM, & 4:30 PM 09/01 07 AC 09/01 IV 0542 Furosemide 40 MG DAILY 08/31 1000 DC 08/31 PO 0948 Insulin Aspart 0 TIDAC 08/31 0800 AC 09/01 SC 1147 Isosorbide 60 MG DAILY 08/31 1000 AC 09/01 Mononitrate PO 0750 Magnesium Chloride 64 MG DAILY 08/31 0730 AC 09/01 PO 0747 Metoprolol Succinate 25 MG DAILY 08/31 1000 AC 09/01 PO 0750 Non-Formulary 0 SEE ADMIN CRITERIA 08/31 0030 CAN Medication ANY Omeprazole 40 MG DAILY AC 08/31 0700 AC 09/01 PO 0541 Oxybutynin Chloride 2.5 MG BID 08/31 1000 AC 09/01 PO 0747 Ranolazine 1,000 MG BID 08/31 1000 AC 09/01 PO 0748 Sacubitril/Valsartan 2 TAB BID 08/31 1500 DC 08/31 PO 08/31 2201 2343 Tamsulosin HCl 0.4 MG DAILY 08/31 1000 AC 09/01 PO 0747 Results Last 48 Hrs of Labs/Mics: Laboratory Tests 09/01/17 1100: PT 25.3 H, INR 2.43 H 09/01/17 0658: Anion Gap 13, Estimated GFR > 60, BUN/Creatinine Ratio 18.9, CBC w Diff NO MAN DIFF REQ, RBC 4.50 L, MCV 91.1, MCH 29.9, MCHC 32.8 L, RDW 16.7 H, MPV 9.5, Gran % 80.4 H, Lymphocytes % 9.5 L, Monocytes % 8.6, Eosinophils % 1.2, Basophils % 0.3, Absolute Granulocytes 5.9, Absolute Lymphocytes 0.7 L, Absolute Monocytes 0.6, Absolute Eosinophils 0.1, Absolute Basophils 0 08/31/17 1920: Urine Color YEL, Urine Clarity CLEAR, Urine pH 5.5, Ur Specific [place] >= 1.030 , Urine Protein NEG, Urine Ketones NEG, Urine Nitrite NEG, Urine Bilirubin NEG, Urine Urobilinogen 0.2, Ur Leukocyte Esterase NEG, Ur Microscopic EXAM NOT REQUIRED, Urine Hemoglobin NEG, Urine Glucose 100 H 08/31/17 1128: Urinalysis LIGHT H, Urine Color XIN, Urine Clarity HAZY H, Urine pH 5.5, Ur Specific [place] >= 1.030, Urine Protein 100 H, Urine Ketones TRACE H, Urine Nitrite POS H, Urine Bilirubin NEG@ICTO, Urine Urobilinogen 1.0, Ur Leukocyte Esterase NEG, Ur Microscopic SEDIMENT EXAMINED, Urine RBC 1-3, Urine WBC 5-10 H , Ur Epithelial Cells FEW, Urine Bacteria FEW H, Hyaline Casts 10-15 H, Granular Casts FEW H, Urine Mucus MANY H, Urine Hemoglobin NEG, Urine Glucose 100 H 08/31/17 0640: Anion Gap 14, Estimated GFR > 60, BUN/Creatinine Ratio 18.9, Magnesium 1.7, Troponin I 0.03, PT 37.6 H, INR 3.63 H, CBC w Diff NO MAN DIFF REQ, RBC 4.49 L, MCV 91.1, MCH 29.8, MCHC 32.8 L, RDW 16.9 H, MPV 9.2, Gran % 76.2 H, Lymphocytes % 13.8 L, Monocytes % 8.9, Eosinophils % 0.5, Basophils % 0.6, Absolute Granulocytes 4.7, Absolute Lymphocytes 0.9 L, Absolute Monocytes 0.6, Absolute Eosinophils 0, Absolute Basophils 0 08/31/17 0600: CBC w Diff Cancelled, WBC Cancelled, RBC Cancelled, Hgb Cancelled, Hct Cancelled , MCV Cancelled, MCH Cancelled, MCHC Cancelled, RDW Cancelled, Plt Count Cancelled, MPV Cancelled 08/30/17 2342: Lactic Acid 1.1 08/30/171999: Anion Gap 18 H, Estimated GFR > 60, BUN/Creatinine Ratio 17.5, Glucose 177 H, Lactic Acid 3.4 H, Calcium 8.2 L, Magnesium 1.6, Total Bilirubin 0.6, AST 15 L, ALT 19 L, Alkaline Phosphatase 43, Troponin I 0.03, Ncz-B-Kcislpjhlgr Pept 1730 H, Total Protein 6.4, Albumin 3.6, Globulin 2.8, Albumin/Globulin Ratio 1.3, PT 31.5 H, INR 3.03 H, APTT 39 H, CBC w Diff NO MAN DIFF REQ, RBC 4.50 L, MCV 90.9, MCH 29.3, MCHC 32.3 L, RDW 16.7 H, MPV 8.9, Gran % 75.6 H, Lymphocytes % 14.6 L, Monocytes % 8.2, Eosinophils % 1.0, Basophils % 0.6, Absolute Granulocytes 4.2, Absolute Lymphocytes 0.8 L, Absolute Monocytes 0.5, Absolute Eosinophils 0.1, Absolute Basophils 0 08/30/171950: Urine Color Cancelled, Urine Clarity Cancelled, Urine pH Cancelled, Ur Specific [place] Cancelled, Urine Protein Cancelled, Urine Ketones Cancelled, Urine Nitrite Cancelled, Urine Bilirubin Cancelled, Urine Urobilinogen Cancelled, Ur Leukocyte Esterase Cancelled, Ur Microscopic Cancelled, Urine Hemoglobin Cancelled, Urine Glucose Cancelled Microbiology 08/31 112 URINE ROUT: Legionella Antigen - COMP 08/31 1127 URINE ROUT: Streptococcus pneumoniae Antigen (M - COMP 08/30 1999 NASOPHARYN: Influenza Virus A & B Rapid Smear - COMP Recent Imaging Studies: Telemetry tracings were personally reviewed and show atrial fibrillation with controlled ventricular response rate Assessment/Plan Assessment/Plan 1. Acute on chronic systolic heart failure 2. History of ischemic cardiomyopathy and left bundle-branch block with a recent cardiac catheterization (04/2017) showing severe three-vessel [place] coronary artery disease with patent bifurcating saphenous vein graft to the 2nd obtuse marginal and occluded saphenous vein graft to the distal right coronary artery with no obvious evidence of internal mammary artery graft (medical management advised); recent outpatient Echo with improved EF to 50 % 3. History of coronary artery disease with remote CABG 4. History of pulmonary embolism on Coumadin 5. History of diabetes mellitus 6. History of hypertension and hyperlipidemia 7. Recently diagnosed atrial fibrillation with controlled ventricular response rate 8. PVCs The patient is hemodynamically stable and while he denies any current shortness of breath he does have lower extremity edema on exam. Can continue on the IV Lasix while monitoring strict I's and O's, daily weights, and metabolic panels. The new onset atrial fibrillation may have contributed to some of his recent symptoms and as it appears he has remained in atrial fibrillation for over 2 weeks it is reasonable to proceed with a FALLON/cardioversion to restore sinus rhythm/atrial kick. I discussed the risks versus benefits of this procedure at length with the patient and he is agreeable. We will proceed with the FALLON/CV when he is optimized; I have tentatively scheduled this procedure for Friday morning. He should be kept nothing by mouth after midnight on Friday. Resume his Entresto as blood pressure tolerates. Maintain therapeutic INR with Coumadin. Familia Daniel MD [facility] Continue telemetry? Yes
[2017-09-01 14:19] VITALS: BP 100/58
[2017-09-01 22:20] VITALS: BP 124/80
[2017-09-02 05:45] VITALS: BP 114/52
--- NOTE | 2017-09-02 07:25 | PN- Housestaff ---
See Addendum Subjective Follow-up For: New onset atrial fibrillation Tele-Events Since Last Visit: Caroline thompson 70-109 Subjective: Patient visited today, was sitting at the bedside comfortably in no acute distress, was alert and oriented. Reported no change in medical condition, no SOB as he related to low physical function. No fever or chills, no shortness of breathing, no chest pain, no other events. Review of Systems Constitutional: Reports: see HPI. Objective Last 24 Hrs of Vital Signs/I&O Vital Signs Date Time Temp Pulse Resp B/P B/P Pulse O2 O2 Flow FiO2 Mean Ox Delivery Rate 09/02 1413 98.1 78 20 108/56 93 Room Air 09/02 0807 88 114/60 09/02 0807 88 114/60 09/02 0806 88 114/60 09/02 0806 88 114/60 09/02 0545 99.7 85 20 114/52 92 09/02 0000 95 Room Air 09/01 2220 97.6 75 18 124/80 96 Room Air 09/01 2155 76 132/74 Intake & Output 09/02 1600 09/02 0800 09/02 0000 Intake Total 610 200 930 Output Total 1550 1125 1000 Balance -940 -925 -70 Intake, IV 10 Intake, Oral 600 200 930 Output, Urine 1550 1125 1000 Physical Exam General Appearance: Alert, Oriented X3, Cooperative, No Acute Distress HEENT: Atraumatic, EOMI, Mucous Membr. moist/pink Cardiovascular: Normal S1, Normal S2, irreg irreg Lungs: bilateral wheezing and rhonchi Abdomen: Soft, No Tenderness Extremities: edema, improved Current Medications: Current Medications Sig/Franki Start time Last Medication Dose Route Stop Time Status Admin Acetaminophen 650 MG Q8P PRN 08/30 2345 AC PO Aspirin 81 MG DAILY 08/31 1000 AC 09/02 PO 0806 Atorvastatin Calcium 40 MG 1700 08/31 1700 AC 09/01 PO 1728 Finasteride 5 MG DAILY 08/31 1000 AC 09/02 PO 0806 Furosemide 40 MG 7:30 AM, & 4:30 PM 09/01 0730 AC 09/02 IV 0622 Insulin Aspart 0 TIDAC 08/31 0800 AC 09/02 SC 1131 Isosorbide 30 MG DAILY 09/03 1000 AC Mononitrate PO Isosorbide 60 MG DAILY 08/31 1000 DC 09/02 Mononitrate PO 0807 Magnesium Chloride 64 MG DAILY 08/31 0730 AC 09/02 PO 0807 Metoprolol Succinate 25 MG DAILY 08/31 1000 AC 09/02 PO 0806 Non-Formulary 0 SEE ADMIN CRITERIA 09/02 0830 CAN Medication ANY Non-Formulary 0 SEE ADMIN CRITERIA 09/01 1645 DC Medication ANY Omeprazole 40 MG DAILY AC 08/31 0700 AC 09/02 PO 0622 Oxybutynin Chloride 2.5 MG BID 08/31 1000 AC 09/02 PO 0807 Ranolazine 1,000 MG BID 08/31 1000 AC 09/02 PO 0806 Sacubitril/Valsartan 1 TAB BID 09/03 1000 AC PO Sacubitril/Valsartan 2 TAB ONCE ONE 09/010 DC 09/02 PO 09/01 2201 0001 Tamsulosin HCl 0.4 MG DAILY 08/31 1000 AC 09/02 PO 0807 Warfarin Sodium 6 MG COUMADIN 1700 ONE 09/01 1700 DC 09/01 PO 09/01 1701 1728 Last 24 Hrs of Lab/Louis Results Last 24 Hrs of Labs/Mics: Laboratory Tests 09/02/17 0617: PT 18.5 H, INR 1.77 H, CBC w Diff NO MAN DIFF REQ, RBC 4.51 L, MCV 89.9, MCH 29.5, MCHC 32.8 L, RDW 16.3 H, MPV 9.7, Gran % 75.2, Lymphocytes % 12.8 L, Monocytes % 10.4 H, Eosinophils % 1.1, Basophils % 0.5, Absolute Granulocytes 6.0, Absolute Lymphocytes 1.0 L, Absolute Monocytes 0.8 H, Absolute Eosinophils 0.1, Absolute Basophils 0 Assessment/Plan Assessment: The patient is an 82-year-old gentleman with past medical history of CAD with CABG x4 >10y ago, hemic cardiomyopathy with recent new left bundle branch block which triggered cardiac catheterization (04/2017) showing severe three-vessel [place] coronary artery disease, systolic CHF with EF 35-40%, history of a PE on Coumadin with prior IVC filter, diabetes, hypertension, hyperlipidemia and BPH. Patient came to [facility] with complaints of dizziness/weakness and found to be in new onset atrial fibrillation Patient was admitted to telemetry floor for management of following conditions: New onset atrial fibrillation Patient heart rate is controlled patient is on warfarin, metoprolol will continue the same. Coumadin today held in view of supratherapeutic INR. Patient has a borderline blood pressure of 105/50. We will hold Imdur and continue rest of the medication. Echo was done; Moderate reduction in left ventricular systolic function with segmental abnormalities consistent with ischemic cardiomyopathy. Moderate Mitral Regurgitation. - patient is already on Coumadin -Cardiac follow-up appreciated -Nothing by mouth tonight -Plan for cardioversion tomorrow Exacerbation of CHF Last admission was for acute exacerbation of CHF -Repeat echocardiogram for new onset atrial fibrillation -Daily weights, I/Os -1000 ML fluid restriction -IV Lasix twice a day -Continue Entresto -Plan for cardioversion considering patients need for atrial contraction Abnormal CXR: Radiographic evidence of left lower lobe pneumonia with small associated effusion Patient is afebrile without white count. Does not have any respiratory complaints other than the cough which started today. X-rays positive for left lower lobe consolidation. Patient is maintaining oxygen saturation in 90s. Clinically low suspicion of pneumonia. He received IV ceftriaxone and azithromycin in the ED. -Monitor fever and WBC curve, monitor oxygen saturation -Monitor patient off antibiotics -Follow up Sputum culture, Urinary Legionella and streptococcal antigen Hypokalemia Patient presented with potassium of 3.2 likely secondary to Lasix. It was repleted in ED and was normalized. - continue to monitor On Coumadin, supratherapeutic INR History of PE status post IVC Patient is currently on Coumadin 6 mg every day except Friday and Friday when he takes 3 mg Monitor INR daily and dose Coumadin accordingly Patient was subtherapeutic today - Dosed 20 mg and started on IV heparin today DM -Accu-Cheks, insulin sliding scale holding, oral antiDM agents Chronic medical conditions: history of CAD, hypertension,hyperlipidemia, BPH, GERD - Continue on aspirin and statin, metoprolor imdur, renxa, Entrsto,tamsulisin, vesicare,finasterdie and Omeprazole FC DVT prophylaxis with warfarin and ALPS heart healthy diet Problem List: 1. Atrial fibrillation Pain Ratin Pain Location: None Pain Goal: Pain 4 or less Pain Plan: Continue current plan Tomorrow's Labs & Rationales: CBc BEP
--- NOTE | 2017-09-02 07:35 | ECHOCARDIOGRAM REPORT ---
SAM KESSLER Age: 82 : 1935 Gender: M Exam Date: 09/01/2017 19:37 Exam Location: 1 [address] Ht (in): 71 Wt (lb): 252 BSA: 2.43 BP: 100 / 58 Ordering Physician: Mayco Ricks MD Referring Physician: Ye Daniel M.D. Technologist: Lucy Pal RDCS Room Number: [id number] Indications: AFIB/FLUTTER Rhythm: Atrial fibrillation Technical Quality: poor FINDINGS Left Ventricle Moderate left ventricular dilatation. Left ventricular wall thickness mildly increased. Mildly abnormal left ventricular ejection fraction estimated at 35-40%. Thinned/scarred posterior wall. Hypokinetic anterior wall. Right Ventricle Normal right ventricular size and function. Right Atrium Mild right atrial dilatation. Left Atrium Mild to moderate left atrial dilatation. Mitral Valve Moderate mitral annular calcification. Moderate mitral regurgitation. Aortic Valve Diffuse thickening (sclerosis) of the aortic valve cusps without reduced excursion. Tricuspid Valve Tricuspid valve is normal in structure and function. Mild-to- moderate tricuspid regurgitation. Right ventricular systolic pressure estimated to be at upper limits of normal at 30 mmHg. Pulmonic Valve Pulmonic valve not well visualized, grossly normal. Pericardium No pericardial effusion. Left pleural effusion. Great Vessels Aortic root and proximal ascending aorta not well visualized. CONCLUSIONS Moderate reduction in left ventricular systolic function with segmental abnormalities consistent with ischemic cardiomyopathy. Moderate Mitral Regurgitation. Dmitry Salomon M.D. (Electronically Signed) Final Date: 02 September 2017 07:34 MEASUREMENTS (Male / Female) Normal Values 2D ECHO LV Diastolic Diameter PLAX 6.3 cm 4.2 - 5.9 / 3.9 - 5.3 cm LV Systolic Diameter PLAX 4.6 cm 2.1 - 4.0 cm LV Fractional Shortening PLAX 27.0 % 25 - 46 % LV Ejection Fraction 2D Teich 51.6 % IVS Diastolic Thickness 1.4 cm LVPW Diastolic Thickness 1.3 cm LV Relative Wall Thickness 0.4 RV Internal Dim ED PLAX 3.0 cm 1.9 - 3.8 cm LVOT Diameter 1.9 cm Aortic Root Diameter 3.1 cm LA Systolic Diameter LX 4.7 cm 3.0 - 4.0 / 2.7 - 3.8 cm LA Volume 96.0 cm 18 - 58 / 22 - 52 cm Ascending Aorta Diameter 2.8 cm DOPPLER AV Peak Velocity 174.0 cm/s AV Peak Gradient 12.1 mmHg AV Mean Velocity 122.0 cm/s AV Mean Gradient 7.0 mmHg AV Velocity Time Integral 35.2 cm LVOT Peak Velocity 76.7 cm/s LVOT Peak Gradient 2.4 mmHg LVOT Mean Velocity 56.0 cm/s LVOT Mean Gradient 1.0 mmHg LVOT Velocity Time Integral 14.7 cm LVOT Stroke Volume 41.7 cm AV Area Cont Eq vti 1.2 cm AV Area Cont Eq pk 1.2 cm MV Peak Velocity 123.0 cm/s MV Peak Gradient 6.1 mmHg MV Mean Velocity 61.6 cm/s MV Mean Gradient 2.0 mmHg Mitral E Point Velocity 115.0 cm/s Mitral A Point Velocity 116.5 cm/s Mitral E to A Ratio 1.0 MV PHT Velocity 129.0 cm/s MV Deceleration [place] 623.0 cm/s MV Pressure Half Time 62.1 ms MV Area PHT 3.5 cm MV Deceleration Time 173.0 ms TR Peak Velocity 227.0 cm/s TR Peak Gradient 20.6 mmHg Right Atrial Pressure 5.0 mmHg Pulmonary Artery Systolic Pressu 25.6 mmHg Right Ventricular Systolic Press 25.6 mmHg PV Peak Velocity 88.9 cm/s PV Peak Gradient 3.2 mmHg PV Mean Velocity 60.1 cm/s PV Mean Gradient 2.0 mmHg PV Velocity Time Integral 16.2 cm LV E' Lateral Velocity 7.1 cm/s Mitral E to LV E' Lateral Ratio 16.2 LV E' Septal Velocity 3.9 cm/s Mitral E to LV E' Septal Ratio 29.5
[2017-09-02 08:04] LABS: ABSOLUTE BASOPHIL COUNT 0 /CUMM (0.0-0.2); ABSOLUTE EOSINOPHIL COUNT 0.1 /CUMM (0.0-0.7); ABSOLUTE MONOCYTE COUNT 0.8 /CUMM (0.10-0.60); BASOPHIL % 0.5 % (0.0-2.0); EOSINOPHIL % 1.1 % (0-5); GRANULOCYTE % 75.2 % (42.2-75.2); HEMATOCRIT 40.5 % (42-52); MEAN CORPUSCULAR HGB 29.5 PG (27.0-31.0); MEAN CORPUSCULAR HGB CONC 32.8 G/DL (33.0-37.0); MEAN CORPUSCULAR VOLUME 89.9 FL (80.0-94.0); MEAN PLATELET VOLUME 9.7 FL (7.4-10.4); PLATELET COUNT 202 /CUMM (130-400); RBC DISTRIBUTION WIDTH 16.3 % (11.5-14.5); RED BLOOD CELL CT 4.51 /CUMM (4.70-6.10)
[2017-09-02 08:16] LABS: PT 18.5 SEC (9.4-12.5)
--- NOTE | 2017-09-02 10:17 | PN- Cardiology ---
Subjective Subjective: Patient feels well. He denies chest pain or shortness of breath. He is agreeable to the FALL[place] cardioversion tomorrow Review of Systems: Eyes no blurred or double vision Ears no deafness or ringing Nose and throat no recurrent sinusitis Lungs per history of present illness Heart per history of present illness Abdomen no nausea vomiting Musculoskeletal occasional muscle and joint pains Psych no anxiety or depression Neuro without recurrent headache or seizures Endocrine no heat or cold intolerance Objective Vital Signs and I&Os Vital Signs Date Time Temp Pulse Resp B/P B/P Pulse O2 O2 Flow FiO2 Mean Ox Delivery Rate 09/02 0807 88 114/60 09/02 0807 88 114/60 09/02 0806 88 114/60 09/02 0806 88 114/60 09/02 0545 99.7 85 20 114/52 92 09/02 0000 95 Room Air 09/01 2220 97.6 75 18 124/80 96 Room Air 09/01 2155 76 132/74 09/01 1419 97.7 70 18 100/58 95 Room Air Intake & Output 09/02 1600 09/02 0800 09/02 0000 09/01 1600 09/01 0800 09/01 0000 Intake Total 200 930 460 120 350 Output Total 1125 1000 1050 500 Balance -925 -70 460 -930 -150 Intake, Oral 200 930 460 120 350 Number 2 Bowel Movements Output, Urine 1125 1000 1050 500 Physical Exam: Patient is a well-developed well-nourished male appearing in no acute distress HEENT is unremarkable Neck is supple there is no JVD Lungs are clear Heart irregular rhythm S1 and S2 are normal no murmurs gallops or rubs Abdomen bowel sounds positive Extremities without edema Current Medications: Current Medications Sig/Franki Start time Last Medication Dose Route Stop Time Status Admin Acetaminophen 650 MG Q8P PRN 08/30 2345 AC PO Aspirin 81 MG DAILY 08/31 1000 AC 09/02 PO 0806 Atorvastatin Calcium 40 MG 1700 08/31 1700 AC 09/01 PO 1728 Finasteride 5 MG DAILY 08/31 1000 AC 09/02 PO 0806 Furosemide 40 MG 7:30 AM, & 4:30 PM 09/01 0730 AC 09/02 IV 0622 Insulin Aspart 0 TIDAC 08/31 0800 AC 09/02 SC 0805 Isosorbide 60 MG DAILY 08/31 1000 AC 09/02 Mononitrate PO 0807 Magnesium Chloride 64 MG DAILY 08/31 0730 AC 09/02 PO 0807 Metoprolol Succinate 25 MG DAILY 08/31 1000 AC 09/02 PO 0806 Non-Formulary 0 SEE ADMIN CRITERIA 09/02 0830 CAN Medication ANY Non-Formulary 0 SEE ADMIN CRITERIA 09/01 1645 DC Medication ANY Omeprazole 40 MG DAILY AC 08/31 0700 AC 09/02 PO 0622 Oxybutynin Chloride 2.5 MG BID 08/31 1000 AC 09/02 PO 0807 Ranolazine 1,000 MG BID 08/31 1000 AC 09/02 PO 0806 Sacubitril/Valsartan 1 TAB BID 09/03 1000 AC PO Sacubitril/Valsartan 2 TAB ONCE ONE 09/01 2200 DC 09/02 PO 09/01 220 0001 Tamsulosin HCl 0.4 MG DAILY 08/31 1000 AC 09/02 PO 0807 Warfarin Sodium 6 MG COUMADIN 1700 ONE 09/01 1700 DC 09/01 PO 09/01 1701 1728 Results Last 48 Hrs of Labs/Mics: Laboratory Tests 09/02/17 0617: PT 18.5 H, INR 1.77 H, CBC w Diff NO MAN DIFF REQ, RBC 4.51 L, MCV 89.9, MCH 29.5, MCHC 32.8 L, RDW 16.3 H, MPV 9.7, Gran % 75.2, Lymphocytes % 12.8 L, Monocytes % 10.4 H, Eosinophils % 1.1, Basophils % 0.5, Absolute Granulocytes 6.0, Absolute Lymphocytes 1.0 L, Absolute Monocytes 0.8 H, Absolute Eosinophils 0.1, Absolute Basophils 0 09/01/17 1100: PT 25.3 H, INR 2.43 H 09/01/17 0658: Anion Gap 13, Estimated GFR > 60, BUN/Creatinine Ratio 18.9, CBC w Diff NO MAN DIFF REQ, RBC 4.50 L, MCV 91.1, MCH 29.9, MCHC 32.8 L, RDW 16.7 H, MPV 9.5, Gran % 80.4 H, Lymphocytes % 9.5 L, Monocytes % 8.6, Eosinophils % 1.2, Basophils % 0.3, Absolute Granulocytes 5.9, Absolute Lymphocytes 0.7 L, Absolute Monocytes 0.6, Absolute Eosinophils 0.1, Absolute Basophils 0 08/31/17 1920: Urine Color YEL, Urine Clarity CLEAR, Urine pH 5.5, Ur Specific [place] >= 1.030 , Urine Protein NEG, Urine Ketones NEG, Urine Nitrite NEG, Urine Bilirubin NEG, Urine Urobilinogen 0.2, Ur Leukocyte Esterase NEG, Ur Microscopic EXAM NOT REQUIRED, Urine Hemoglobin NEG, Urine Glucose 100 H 08/31/17 1128: Urinalysis LIGHT H, Urine Color XIN, Urine Clarity HAZY H, Urine pH 5.5, Ur Specific [place] >= 1.030, Urine Protein 100 H, Urine Ketones TRACE H, Urine Nitrite POS H, Urine Bilirubin NEG@ICTO, Urine Urobilinogen 1.0, Ur Leukocyte Esterase NEG, Ur Microscopic SEDIMENT EXAMINED, Urine RBC 1-3, Urine WBC 5-10 H , Ur Epithelial Cells FEW, Urine Bacteria FEW H, Hyaline Casts 10-15 H, Granular Casts FEW H, Urine Mucus MANY H, Urine Hemoglobin NEG, Urine Glucose 100 H Microbiology 08/31 1127 URINE ROUT: Legionella Antigen - COMP 08/31 1127 URINE ROUT: Streptococcus pneumoniae Antigen (M - COMP Telemetry personally reviewed atrial fibrillation with PVCs Assessment/Plan Assessment/Plan 1. Acute on chronic systolic heart failure 2. History of ischemic cardiomyopathy and left bundle-branch block with a recent cardiac catheterization (04/2017) showing severe three-vessel [place] coronary artery disease with patent bifurcating saphenous vein graft to the 2nd obtuse marginal and occluded saphenous vein graft to the distal right coronary artery with no obvious evidence of internal mammary artery graft (medical management advised); recent outpatient Echo with improved EF to 50 % 3. History of coronary artery disease with remote CABG 4. History of pulmonary embolism on Coumadin 5. History of diabetes mellitus 6. History of hypertension and hyperlipidemia 7. Recently diagnosed atrial fibrillation with controlled ventricular response rate 8. PVCs Recommendations 1. I would continue his current medications 2. Since he remains in atrial fibrillation will plan for F[place] cardioversion tomorrow. Patient will be nothing by mouth after midnight 3. Patient's INR is subtherapeutic today therefore I would administer Coumadin [address] him on IV heparin without a bolus and plans for the cardioversion in the morning. Continue telemetry? Yes
[2017-09-02 14:13] VITALS: BP 108/56
[2017-09-02 21:47] VITALS: BP 130/60
[2017-09-02 23:52] LABS: PTT > 120 SEC (25-37)
[2017-09-03 07:14] VITALS: BP 138/84
--- NOTE | 2017-09-03 08:03 | PN- Housestaff ---
Eb Starkey MD,Ami 09/03/17 0803: Subjective Follow-up For: New onset atrial fibrillation Tele-Events Since Last Visit: afib [id number] Subjective: Patient visited today, was sitting in bed comfortably in no acute distress, was alert and oriented. planned to go for cardioversion today. No fever or chills, no shortness of breathing, no chest pain, no other events. Review of Systems Constitutional: Reports: see HPI. Objective Last 24 Hrs of Vital Signs/I&O Vital Signs Date Time Temp Pulse Resp B/P B/P Pulse O2 O2 Flow FiO2 Mean Ox Delivery Rate 09/03 1254 90 138/84 09/03 1254 90 138/84 09/03 1254 90 138/84 09/03 1254 90 138/84 09/03 0714 97.5 89 20 138/84 92 Room Air 09/02 2239 84 130/72 09/02 2147 98.2 77 20 130/60 97 Room Air Intake & Output 09/03 1600 09/03 0800 09/03 0000 Intake Total 134.4 304 Output Total 475 1100 Balance -340.6 -796 Intake, IV 134.4 104 Intake, Oral 0 200 Output, Urine 475 1100 Patient 250 lb Weight Weight Bed scale Measurement Method Physical Exam General Appearance: Alert, Oriented X3, No Acute Distress Skin: No Significant Lesion HEENT: Atraumatic, EOMI, Mucous Membr. moist/pink Cardiovascular: Normal S1, Normal S2, irreg irreg Lungs: Clear to Auscultation Abdomen: Soft, No Tenderness Neurological: Normal Speech Extremities: bilateral leg edema improved Current Medications: Current Medications Sig/Franki Start time Last Medication Dose Route Stop Time Status Admin Acetaminophen 650 MG Q8P PRN 08/30 2345 AC PO Amiodarone HCl 400 MG BID 09/03 1310 AC PO Aspirin 81 MG DAILY 08/31 1000 AC 09/03 PO 1254 Atorvastatin Calcium 40 MG 1700 08/31 1700 AC 09/02 PO 1618 Finasteride 5 MG DAILY 08/31 1000 AC 09/03 PO 1254 Furosemide 40 MG 7:30 AM, & 4:30 PM 09/01 0730 AC 09/03 IV 0622 Heparin Sodium 4,500 UNIT ONCE ONE 09/03 1100 DC (Porcine) IV 09/03 1101 Heparin Sodium 25,000 UNIT Q24H 09/02 1445 DC 09/02 (Porcine) IV 1627 Sodium Chloride 500 ML Insulin Aspart 0 TIDAC 08/31 0800 AC 09/03 SC 1252 Isosorbide 30 MG DAILY 09/03 1000 AC 09/03 Mononitrate PO 1254 Lidocaine 0 .STK-MED ONE 09/03 0933 DC TOP Magnesium Chloride 64 MG DAILY 08/31 0730 AC 09/03 PO 1255 Metoprolol Succinate 25 MG DAILY 08/31 1000 AC 09/03 PO 1254 Omeprazole 40 MG DAILY AC 08/31 0700 AC 09/02 PO 0622 Oxybutynin Chloride 2.5 MG BID 08/31 1000 AC 09/03 PO 1254 Ranolazine 1,000 MG BID 08/31 1000 AC 09/03 PO 1254 Sacubitril/Valsartan 1 TAB BID 09/03 1000 DC PO Sacubitril/Valsartan 1 TAB BID 09/03 1000 AC 09/03 PO 1000 Sacubitril/Valsartan 2 TAB ONCE ONE 09/02 2300 DC 09/02 PO 09/02 2301 2303 Tamsulosin HCl 0.4 MG DAILY 08/31 1000 AC 09/03 PO 1254 Warfarin Sodium 3 MG COUMADIN 1700 ONE 09/03 1700 AC PO 09/03 1701 Warfarin Sodium 10 MG COUMADIN 1700 09/02 1700 DC 09/02 PO 09/02 1701 1618 Last 24 Hrs of Lab/[place] Results Last 24 Hrs of Labs/Mics: Laboratory Tests 09/03/17 0635: Anion Gap 16, Estimated GFR > 60, BUN/Creatinine Ratio 18.0, PT 24.0 H, INR 2.30 H, APTT 46 H, CBC w Diff NO MAN DIFF REQ, RBC 4.33 L, MCV 89.3, MCH 29.8 , MCHC 33.3, RDW 16.8 H, MPV 9.9, Gran % 77.3 H, Lymphocytes % 9.1 L, Monocytes % 12.1 H, Eosinophils % 1.1, Basophils % 0.4, Absolute Granulocytes 5.1, Absolute Lymphocytes 0.6 L, Absolute Monocytes 0.8 H, Absolute Eosinophils 0.1, Absolute Basophils 0 09/03/17 0630: APTT Cancelled 09/02/17 2231: APTT > 120 *H Assessment/Plan Assessment: The patient is an 82-year-old gentleman with past medical history of CAD with CABG x4 >10y ago, hemic cardiomyopathy with recent new left bundle branch block which triggered cardiac catheterization (04/2017) showing severe three-vessel [place] coronary artery disease, systolic CHF with EF 35-40%, history of a PE on Coumadin with prior IVC filter, diabetes, hypertension, hyperlipidemia and BPH. Patient came to [facility] with complaints of dizziness/weakness and found to be in new onset atrial fibrillation Patient was admitted to telemetry floor for management of following conditions: New onset atrial fibrillation Patient heart rate is controlled patient is on warfarin, metoprolol will continue the same. Coumadin today held in view of supratherapeutic INR. Patient has a borderline blood pressure of 105/50. We will hold Imdur and continue rest of the medication. Echo was done; Moderate reduction in left ventricular systolic function with segmental abnormalities consistent with ischemic cardiomyopathy. Moderate Mitral Regurgitation. FALLON was done and Patient underwent successful cardioversion today FALLON: Left ventricular cavity size normal. Left ventricular wall thickness at upper limits of normal. Moderately reduced global left ventricular systolic function. Left ventricular ejection fraction is estimated at 35 %. Mild right atrial dilatation. Moderate left atrial dilatation. No thrombus detected in the left atrial appendage. No shunt detected by color Doppler or bubble study. Following the procedure the patient was successfully cardioverted from atrial fibrillation to sinus rhythm using 200 joules of synchronized energy x2. -Continue Coumadin -Cardiac follow-up appreciated - Amiodarone started per cardio Exacerbation of CHF Last admission was for acute exacerbation of CHF -Repeat echocardiogram for new onset atrial fibrillation -Daily weights, I/Os -1000 ML fluid restriction -IV Lasix twice a day -Continue Entresto Abnormal CXR: Radiographic evidence of left lower lobe pneumonia with small associated effusion Patient is afebrile without white count. Does not have any respiratory complaints other than the cough which started today. X-rays positive for left lower lobe consolidation. Patient is maintaining oxygen saturation in 90s. Clinically low suspicion of pneumonia. He received IV ceftriaxone and azithromycin in the ED. -Monitor fever and WBC curve, monitor oxygen saturation -Monitor patient off antibiotics -Follow up Sputum culture, Urinary Legionella and streptococcal antigen Hypokalemia Patient presented with potassium of 3.2 likely secondary to Lasix. It was repleted in ED and was normalized. - continue to monitor On Coumadin, supratherapeutic INR History of PE status post IVC Patient is currently on Coumadin 6 mg every day except Friday and Friday when he takes 3 mg Monitor INR daily and dose Coumadin accordingly Patient was subtherapeutic today - Dosed smaller dose warfarine DM -Accu-Cheks, insulin sliding scale holding, oral antiDM agents Chronic medical conditions: history of CAD, hypertension,hyperlipidemia, BPH, GERD - Continue on aspirin and statin, metoprolor imdur, renxa, Entrsto,tamsulisin, vesicare,finasterdie and Omeprazole FC DVT prophylaxis with warfarin and ALPS heart healthy diet Problem List: 1. New onset left bundle branch block (LBBB) Pain Ratin Pain Location: None Pain Goal: Pain 4 or less Pain Plan: COntinue current plan Tomorrow's Labs & Rationales: CBC BEP PT Alvaro Amos 09/03/17 1454: Attending MD Review Statement Attending Statement Attending MD Statement: examined this patient, discuss w/resident/PA/FREEZING ROOM WORKER, agreed w/resident/PA/FREEZING ROOM WORKER, reviewed EMR data (avail), discussed with nursing, discussed with case mgmt Attending Assessment/Plan: pt cardioverted successfully. pt started on amiodarone per cardiology. plan dc tomorrow . give 3mg coumadin tonight. f/u on monitor and if stable dc tomorrow.
[2017-09-03 08:11] LABS: ABSOLUTE BASOPHIL COUNT 0 /CUMM (0.0-0.2); ABSOLUTE EOSINOPHIL COUNT 0.1 /CUMM (0.0-0.7); ABSOLUTE GRANULOCYTE CT 5.1 /CUMM (1.4-6.5); ABSOLUTE LYMPH COUNT 0.6 /CUMM (1.2-3.4); ABSOLUTE MONOCYTE COUNT 0.8 /CUMM (0.10-0.60); BASOPHIL % 0.4 % (0.0-2.0); EOSINOPHIL % 1.1 % (0-5); GRANULOCYTE % 77.3 % (42.2-75.2); HEMATOCRIT 38.6 % (42-52); MEAN CORPUSCULAR HGB 29.8 PG (27.0-31.0); MEAN CORPUSCULAR HGB CONC 33.3 G/DL (33.0-37.0); MEAN CORPUSCULAR VOLUME 89.3 FL (80.0-94.0); MEAN PLATELET VOLUME 9.9 FL (7.4-10.4); PLATELET COUNT 186 /CUMM (130-400); RBC DISTRIBUTION WIDTH 16.8 % (11.5-14.5); RED BLOOD CELL CT 4.33 /CUMM (4.70-6.10); WHITE BLOOD CELL COUNT 6.6 /CUMM (4.8-10.8)
[2017-09-03 08:20] LABS: PTT 46 SEC (25-37)
--- NOTE | 2017-09-03 11:29 | Proc Note Cardiology ---
Cardiology Procedure Procedure Date: 09/03/17 Cardiology Procedure(s): electrical cardioversion, FALLON Pre-Operative Diagnosis: Atrial fibrillation Post-Operative Diagnosis: Sinus rhythm Estimated Blood Loss: none Anesthesia: propofol per anesthesia Procedure Findings: See transesophageal echocardiogram report for details. Patient was cardioverted from atrial fibrillation to sinus rhythm using 200 J of synchronous energy 2. Familia Daniel MD [facility]
--- NOTE | 2017-09-03 12:00 | PN- Cardiology ---
Subjective Subjective: Doing well. I performed a successful FALLON/cardioversion earlier. Objective Vital Signs and I&Os Vital Signs Date Time Temp Pulse Resp B/P B/P Pulse O2 O2 Flow FiO2 Mean Ox Delivery Rate 09/03 0714 97.5 89 20 138/84 92 Room Air 09/02 2239 84 130/72 09/02 2147 98.2 77 20 130/60 97 Room Air 09/02 1413 98.1 78 20 108/56 93 Room Air Intake & Output 09/03 1600 09/03 0800 09/03 0000 09/02 1600 09/02 0800 09/02 0000 Intake Total 134.4 304 610 200 930 Output Total 475 1100 1550 1125 1000 Balance -340.6 -796 -940 -925 -70 Intake, IV 134.4 104 10 Intake, Oral 0 200 600 200 930 Output, Urine 475 1100 1550 1125 1000 Patient 250 lb Weight Weight Bed scale Measurement Method Physical Exam: General: no apparent distress. Alert. Eyes: No obvious scleral icterus. HEENT: no jugular venous distention Cardiovascular: Normal intensity S1/S2. Respiratory: No rales or rhonchi Abdomen: Soft, nontender with no guarding or rebound tenderness. Musculoskeletal: No clubbing or cyanosis noted; 1-2+ lower extremity edema Skin: warm Neurologic: No gross focal deficits noted. Current Medications: Current Medications Sig/Franki Start time Last Medication Dose Route Stop Time Status Admin Acetaminophen 650 MG Q8P PRN 08/30 2345 AC PO Aspirin 81 MG DAILY 08/31 1000 AC 09/02 PO 0806 Atorvastatin Calcium 40 MG 1700 08/31 1700 AC 09/02 PO 1618 Finasteride 5 MG DAILY 08/31 1000 AC 09/02 PO 0806 Furosemide 40 MG 7:30 AM, & 4:30 PM 09/01 0730 AC 09/03 IV 0622 Heparin Sodium 4,500 UNIT ONCE ONE 09/03 1100 DC (Porcine) IV 09/03 1101 Heparin Sodium 25,000 UNIT Q24H 09/02 1445 DC 09/02 (Porcine) IV 1627 Sodium Chloride 500 ML Insulin Aspart 0 TIDAC 08/31 0800 AC 09/02 SC 1713 Isosorbide 30 MG DAILY 09/03 1000 AC Mononitrate PO Lidocaine 0 .STK-MED ONE 09/03 0933 DC TOP Magnesium Chloride 64 MG DAILY 08/31 0730 AC 09/02 PO 0807 Metoprolol Succinate 25 MG DAILY 08/31 1000 AC 09/02 PO 0806 Omeprazole 40 MG DAILY AC 08/31 0700 AC 09/02 PO 0622 Oxybutynin Chloride 2.5 MG BID 08/31 1000 AC 09/02 PO 2239 Ranolazine 1,000 MG BID 08/31 1000 AC 09/02 PO 2239 Sacubitril/Valsartan 1 TAB BID 09/03 1000 DC PO Sacubitril/Valsartan 1 TAB BID 09/03 1000 AC PO Sacubitril/Valsartan 2 TAB ONCE ONE 09/02 2300 DC 09/02 PO 09/02 2301 2303 Tamsulosin HCl 0.4 MG DAILY 08/31 1000 AC 09/02 PO 08 Warfarin Sodium 10 MG COUMADIN 1700 09/02 1700 DC 09/02 PO 09/02 1701 1618 Results Last 48 Hrs of Labs/Mics: Laboratory Tests 09/03/17 0635: Anion Gap 16, Estimated GFR > 60, BUN/Creatinine Ratio 18.0, PT 24.0 H, INR 2.30 H, APTT 46 H, CBC w Diff NO MAN DIFF REQ, RBC 4.33 L, MCV 89.3, MCH 29.8 , MCHC 33.3, RDW 16.8 H, MPV 9.9, Gran % 77.3 H, Lymphocytes % 9.1 L, Monocytes % 12.1 H, Eosinophils % 1.1, Basophils % 0.4, Absolute Granulocytes 5.1, Absolute Lymphocytes 0.6 L, Absolute Monocytes 0.8 H, Absolute Eosinophils 0.1, Absolute Basophils 0 09/03/17629: APTT Cancelled 09/02/172230: APTT > 120 *H 09/02/17 0617: PT 18.5 H, INR 1.77 H, CBC w Diff NO MAN DIFF REQ, RBC 4.51 L, MCV 89.9, MCH 29.5, MCHC 32.8 L, RDW 16.3 H, MPV 9.7, Gran % 75.2, Lymphocytes % 12.8 L, Monocytes % 10.4 H, Eosinophils % 1.1, Basophils % 0.5, Absolute Granulocytes 6.0, Absolute Lymphocytes 1.0 L, Absolute Monocytes 0.8 H, Absolute Eosinophils 0.1, Absolute Basophils 0 Recent Imaging Studies: TTE: Moderate reduction in left ventricular systolic function with segmental abnormalities consistent with ischemic cardiomyopathy. Moderate Mitral Regurgitation. Dmitry Salomon M.D. (Electronically Signed) Final Date: 02 September 2017 07:34 Telemetry tracings were personally reviewed and showed atrial fibrillation pre- cardioversion Assessment/Plan Assessment/Plan 1. Acute on chronic systolic heart failure 2. History of ischemic cardiomyopathy and left bundle-branch block with a recent cardiac catheterization (04/2017) showing severe three-vessel [place] coronary artery disease with patent bifurcating saphenous vein graft to the 2nd obtuse marginal and occluded saphenous vein graft to the distal right coronary artery with no obvious evidence of internal mammary artery graft (medical management advised); EF currently 35-40% 3. History of coronary artery disease with remote CABG 4. History of pulmonary embolism on Coumadin 5. History of diabetes mellitus 6. History of hypertension and hyperlipidemia 7. Recently diagnosed atrial fib. with controlled ventricular response rate; s/ p FALLON/CV 09/03/17 8. PVCs Doing well. I performed a successful FALLON/cardioversion earlier. We are hoping to see further improvement in ejection fraction with maintaining sinus rhythm. INR is currently therapeutic; continue daily Coumadin. Still with some lower extremity edema; can continue diuresis with IV Lasix. Continue Entresto. Recommend starting the patient on amiodarone 400 mg by mouth twice a day for 10 days to decrease the risk of early A. fib recurrence. Familia Daniel MD [facility] Continue telemetry? Yes
--- NOTE | 2017-09-03 14:19 | ECHOCARDIOGRAM REPORT ---
SAM KESSLER Age: 82 : Gender: M Exam Date: 09/03/2017 09:26 Exam Location: 1 [address] Ht (in): 70 Wt (lb): 251 BSA: 2.41 BP: 120 / 69 Ordering Physician: Yaron Sutherland MD Referring Physician: Yaron Sutherland MD Technologist: Santi Booth [facility] Room Number: 187-1 Indications: AFIB/FLUTTER Rhythm: Atrial fibrillation Technical Quality: Good Medications Lidocaine [place]. Propofol administered by Anesthesiology. Ease of Transducer Insertion No Difficulty Complications None. Technical Difficulty None. FINDINGS Left Ventricle Left ventricular cavity size normal. Left ventricular wall thickness at upper limits of normal. Moderately reduced global left ventricular systolic function. Left ventricular ejection fraction is estimated at 35 %. Right Ventricle Normal right ventricular size and function. Right Atrium Mild right atrial dilatation. Left Atrium Moderate left atrial dilatation. No left atrial thrombus or mass present. No patent foramen ovale (by Bubble study). LA Appendage No thrombus detected in the left atrial appendage. IA Septum No shunt detected by color Doppler or bubble study. Mitral Valve Structurally normal mitral valve. Mild mitral regurgitation. Aortic Valve No aortic stenosis. Trileaflet aortic valve. Trace aortic regurgitation. Tricuspid Valve Structurally normal tricuspid valve. Mild tricuspid regurgitation. Unable to estimate the right ventricular systolic pressure. Pulmonic Valve Structurally normal pulmonic valve. Trace pulmonic regurgitation. Pericardium No pericardial effusion. Great Vessels Normal size aortic root. CONCLUSIONS Left ventricular cavity size normal. Left ventricular wall thickness at upper limits of normal. Moderately reduced global left ventricular systolic function. Left ventricular ejection fraction is estimated at 35 %. Mild right atrial dilatation. Moderate left atrial dilatation. No thrombus detected in the left atrial appendage. No shunt detected by color Doppler or bubble study. Following the procedure the patient was successfully cardioverted from atrial fibrillation to sinus rhythm using 200 joules of synchronized energy x2. Ye Daniel M.D. (Electronically Signed) Final Date: 03 September 2017 14:19 MEASUREMENTS (Male / Female) Normal Values
[2017-09-03 15:19] VITALS: BP 122/70
[2017-09-03 21:36] VITALS: BP 110/60
[2017-09-04 06:38] VITALS: BP 106/62
[2017-09-04 06:55] VITALS: BP 112/68
--- NOTE | 2017-09-04 08:08 | PN- Housestaff ---
Eb Starkey MD,Ami 09/04/17 0808: Subjective Follow-up For: New onset atrial fibrillation Tele-Events Since Last Visit: SR 84- 98 Subjective: Patient visited today, was sitting at the bedside comfortably in no acute distress, was alert and oriented. No fever or chills, no shortness of breathing, no chest pain, no other events. Underwent cardioversion yesterday, sinus rhythm during tonight and in telemetry. Plan to be discharged on lower dose of Coumadin (considering taking him return) and follow with lab results with PCP and cargo router. Review of Systems Constitutional: Reports: see HPI. Objective Last 24 Hrs of Vital Signs/I&O Vital Signs Date Time Temp Pulse Resp B/P B/P Pulse O2 O2 Flow FiO2 Mean Ox Delivery Rate 09/04 1410 98.0 76 20 102/64 94 Room Air 09/04 0759 88 118/68 09/04 0758 118/68 09/04 0758 88 118/68 09/04 0757 88 118/68 09/04 0757 88 118/68 09/04 0655 88 112/68 09/04 0638 98.7 69 20 106/62 92 Room Air 09/04 0000 Room Air 09/03 2136 98.6 85 20 110/60 98 Room Air 09/03 2134 82 110/62 09/03 2134 85 110/62 Intake & Output 09/04 1600 09/04 0800 09/04 0000 Intake Total 200 150 480 Output Total 550 125 600 Balance -350 25 -120 Intake, Oral 200 150 480 Number 0 Bowel Movements Output, Urine 550 125 600 Physical Exam General Appearance: Alert, Oriented X3, Cooperative, No Acute Distress Skin: No Significant Lesion Skin Temp/Moisture Exam: Warm/Dry Sepsis Skin Exam (color): Normal for Ethnicity HEENT: Atraumatic, EOMI, Mucous Membr. moist/pink Cardiovascular: Regular Rate, Normal S1, Normal S2 Lungs: Clear to Auscultation Abdomen: Soft, No Tenderness Neurological: Normal Speech Extremities: bilateral edema improved Current Medications: Current Medications Sig/Franki Start time Last Medication Dose Route Stop Time Status Admin Acetaminophen 650 MG Q8P PRN 08/30 2345 DCD PO Amiodarone HCl 400 MG BID 09/03 1310 DCD 09/04 PO 0757 Aspirin 81 MG DAILY 08/31 1000 DCD 09/04 PO 0759 Atorvastatin Calcium 40 MG 1700 08/31 1700 DCD 09/03 PO 1621 Benzocaine/Menthol 1 NIMO Q2P PRN 09/03 2230 DCD 09/04 PO 0539 Finasteride 5 MG DAILY 08/31 1000 DCD 09/04 PO 0758 Furosemide 40 MG 7:30 AM, & 4:30 PM 09/01 0730 DCD 09/04 IV 0631 Insulin Aspart 0 TIDAC 08/31 0800 DCD 09/04 SC 1205 Isosorbide 30 MG DAILY 09/03 1000 DCD 09/04 Mononitrate PO 0759 Magnesium Chloride 64 MG DAILY 08/31 0730 DCD 09/04 PO 0759 Metoprolol Succinate 25 MG DAILY 08/31 1000 DCD 09/04 PO 0758 Omeprazole 40 MG DAILY AC 08/31 0700 DCD 09/04 PO 0539 Oxybutynin Chloride 2.5 MG BID 08/31 1000 DCD 09/04 PO 0758 Ranolazine 1,000 MG BID 08/31 1000 DCD 09/04 PO 0758 Sacubitril/Valsartan 1 TAB BID 09/03 1000 DCD 09/04 PO 0759 Tamsulosin HCl 0.4 MG DAILY 08/31 1000 DCD 09/04 PO 0757 Warfarin Sodium 3 MG COUMADIN 1700 ONE 09/03 1700 DC 09/03 PO 09/03 1701 1622 Last 24 Hrs of Lab/Louis Results Last 24 Hrs of Labs/Mics: Laboratory Tests 09/04/17 0628: Anion Gap 13, Estimated GFR > 60, BUN/Creatinine Ratio 18.0, PT 25.8 H, INR 2.48 H, CBC w Diff NO MAN DIFF REQ, RBC 4.07 L, MCV 90.2, MCH 29.6, MCHC 32.8 L, RDW 16.6 H, MPV 9.9, Gran % 77.1 H, Lymphocytes % 8.1 L, Monocytes % 13.4 H, Eosinophils % 1.2, Basophils % 0.2, Absolute Granulocytes 4.2, Absolute Lymphocytes 0.4 L, Absolute Monocytes 0.7 H, Absolute Eosinophils 0.1, Absolute Basophils 0 Assessment/Plan Assessment: The patient is an 82-year-old gentleman with past medical history of CAD with CABG x4 >10y ago, hemic cardiomyopathy with recent new left bundle branch block which triggered cardiac catheterization (04/2017) showing severe three-vessel chilkat coronary artery disease, systolic CHF with EF 35-40%, history of a PE on Coumadin with prior IVC filter, diabetes, hypertension, hyperlipidemia and BPH. Patient came to [facility] with complaints of dizziness/weakness and found to be in new onset atrial fibrillation Patient was admitted to telemetry floor for management of following conditions: New onset atrial fibrillation Patient heart rate is controlled patient is on warfarin, metoprolol will continue the same. Coumadin today held in view of supratherapeutic INR. Patient has a borderline blood pressure of 105/50. We will hold Imdur and continue rest of the medication. Echo was done; Moderate reduction in left ventricular systolic function with segmental abnormalities consistent with ischemic cardiomyopathy. Moderate Mitral Regurgitation. FALLON was done and Patient underwent successful cardioversion today FALLON: Left ventricular cavity size normal. Left ventricular wall thickness at upper limits of normal. Moderately reduced global left ventricular systolic function. Left ventricular ejection fraction is estimated at 35 %. Mild right atrial dilatation. Moderate left atrial dilatation. No thrombus detected in the left atrial appendage. No shunt detected by color Doppler or bubble study. Following the procedure the patient was successfully cardioverted from atrial fibrillation to sinus rhythm using 200 joules of synchronized energy x2. Patient planned to be discharged with adjusted dose of Lasix, Amiodarone with tapering dose, adjusted dose of warfarine for the period on Amiodarone. Exacerbation of CHF Last admission was for acute exacerbation of CHF Lasix dose was adjusted. Managemnt continued as noted above. Abnormal CXR: Radiographic evidence of left lower lobe pneumonia with small associated effusion Patient is afebrile without white count. Does not have any respiratory complaints other than the cough which started today. X-rays positive for left lower lobe consolidation. Patient is maintaining oxygen saturation in 90s. Clinically low suspicion of pneumonia. He received IV ceftriaxone and azithromycin in the ED. With stabliziatoin and Antibiotics were discontinued and we continued moniroting. Hypokalemia Patient presented with potassium of 3.2 likely secondary to Lasix. It was repleted in ED and was normalized. - continued to monitor On Coumadin, supratherapeutic INR History of PE status post IVC Patient is currently on Coumadin 6 mg every day except Friday and Friday when he takes 3 mg Monitor INR daily and dose Coumadin accordingly Patient was subtherapeutic today - Dose adjusted for the period on Amiodarone DM -Accu-Cheks, insulin sliding scale holding, oral antiDM agents Chronic medical conditions: history of CAD, hypertension,hyperlipidemia, BPH, GERD - Continue on aspirin and statin, metoprolor imdur, renxa, Entrsto,tamsulisin, vesicare,finasterdie and Omeprazole FC DVT prophylaxis with warfarin and ALPS heart healthy diet Problem List: 1. Atrial fibrillation status post cardioversion Pain Ratin Pain Location: None Pain Goal: Pain 4 or less Pain Plan: Continue current plan Tomorrow's Labs & Rationales: CBC BEP Alvaro Amos 09/04/17 1401: Attending MD Review Statement Attending Statement Attending MD Statement: examined this patient, discuss w/resident/PA/RETAIL INVENTORY CONTROL CLERK, agreed w/resident/PA/RETAIL INVENTORY CONTROL CLERK, reviewed EMR data (avail), discussed with nursing, discussed with case mgmt Attending Assessment/Plan: pt being dced home today in stable condition. Afib with rvr- cardioverted and staying in nsr post cardioversion. started on amiodarone for 2 weeks. pt on coumadin so will be dced on lower dose of coumadin 5mg M to F and 3m on fri and . pt will have his INR checked on Friday and / with pcp for dose adjustment. Went over medication changes with the patient. Afib with rvr- cardioverted and staying in nsr post cardioversion. started on amiodarone for 2 weeks. pt on coumadin so will be dced on lower dose of coumadin 5mg M to F and 3m on fri and . pt will have his INR checked on Friday and / with pcp for dose adjustment. Went over medication changes with the patient.
[2017-09-04 08:24] LABS: PT 25.8 SEC (9.4-12.5)
[2017-09-04 08:47] LABS: ABSOLUTE BASOPHIL COUNT 0 /CUMM (0.0-0.2); ABSOLUTE EOSINOPHIL COUNT 0.1 /CUMM (0.0-0.7); ABSOLUTE GRANULOCYTE CT 4.2 /CUMM (1.4-6.5); ABSOLUTE LYMPH COUNT 0.4 /CUMM (1.2-3.4); ABSOLUTE MONOCYTE COUNT 0.7 /CUMM (0.10-0.60); BASOPHIL % 0.2 % (0.0-2.0); EOSINOPHIL % 1.2 % (0-5); GRANULOCYTE % 77.1 % (42.2-75.2); HEMATOCRIT 36.7 % (42-52); MEAN CORPUSCULAR HGB 29.6 PG (27.0-31.0); MEAN CORPUSCULAR HGB CONC 32.8 G/DL (33.0-37.0); MEAN CORPUSCULAR VOLUME 90.2 FL (80.0-94.0); MEAN PLATELET VOLUME 9.9 FL (7.4-10.4); PLATELET COUNT 179 /CUMM (130-400); RBC DISTRIBUTION WIDTH 16.6 % (11.5-14.5); RED BLOOD CELL CT 4.07 /CUMM (4.70-6.10); WHITE BLOOD CELL COUNT 5.5 /CUMM (4.8-10.8)
--- NOTE | 2017-09-04 09:58 | PN- Cardiology ---
Subjective Subjective: Telemetry reviewed. Sinus rhythm throughout. Objective Vital Signs and I&Os Vital Signs Date Time Temp Pulse Resp B/P B/P Pulse O2 O2 Flow FiO2 Mean Ox Delivery Rate 09/04 0759 88 118/68 09/04 0758 118/68 09/04 0758 88 118/68 09/04 0757 88 118/68 09/04 0757 88 118/68 09/04 0655 88 112/68 09/04 0638 98.7 69 20 106/62 92 Room Air 09/04 0000 Room Air 09/03 213 98.6 85 20 110/60 98 Room Air 09/03 2134 82 110/62 09/03 2134 85 110/62 09/03 1519 98.2 80 20 122/70 96 09/03 1254 90 138/84 09/03 1254 90 138/84 09/03 1254 90 138/84 09/03 1254 90 138/84 Intake & Output 09/04 1600 09/04 0800 09/04 0000 09/03 1600 09/03 0800 09/03 0000 Intake Total 50 480 134.4 304 Output Total 125 600 045 470 1195 Balance -75 -120 -300 -340.6 -796 Intake, IV 134.4 104 Intake, Oral 50 480 0 200 Number 0 Bowel Movements Output, Urine 125 600 120 384 2772 Patient 250 lb Weight Weight Bed scale Measurement Method Physical Exam: Patient comfortable out in a chair. He has no complaints anxious to go home. Head normocephalic atraumatic Eyes sclera anicteric conjunctiva showed no pallor extraocular muscles were normal Neck no jugular venous distention no thyroid masses no palpable nodes Chest lungs were clear bilaterally Heart regular rhythm with a 1/6 systolic murmur Abdomen soft no organomegaly bowel sounds normal neck and extremities no clubbing cyanosis and trace pedal edema Neurological no gross motor or sensory deficits Current Medications: Current Medications Sig/Franki Start time Last Medication Dose Route Stop Time Status Admin Acetaminophen 650 MG Q8P PRN 08/30 2345 AC PO Amiodarone HCl 400 MG BID 09/03 1310 AC 09/04 PO 0757 Aspirin 81 MG DAILY 08/31 1000 AC 09/04 PO 0759 Atorvastatin Calcium 40 MG 1700 08/31 1700 AC 09/03 PO 1621 Benzocaine/Menthol 1 NIMO Q2P PRN 09/03 2230 AC 09/04 PO 0539 Finasteride 5 MG DAILY 08/31 1000 AC 09/04 PO 0758 Furosemide 40 MG 7:30 AM, & 4:30 PM 09/01 0730 AC 09/04 IV 0631 Heparin Sodium 4,500 UNIT ONCE ONE 09/03 1100 DC (Porcine) IV 09/03 1101 Heparin Sodium 25,000 UNIT Q24H 09/02 1445 DC 09/02 (Porcine) IV 1627 Sodium Chloride 500 ML Insulin Aspart 0 TIDAC 08/31 0800 AC 09/04 SC 0751 Isosorbide 30 MG DAILY 09/03 1000 AC 09/04 Mononitrate PO 0759 Magnesium Chloride 64 MG DAILY 08/31 0730 AC 09/04 PO 0759 Metoprolol Succinate 25 MG DAILY 08/31 1000 AC 09/04 PO 0758 Omeprazole 40 MG DAILY AC 08/31 0700 AC 09/04 PO 0539 Oxybutynin Chloride 2.5 MG BID 08/31 1000 AC 09/04 PO 0758 Ranolazine 1,000 MG BID 08/31 1000 AC 09/04 PO 0758 Sacubitril/Valsartan 1 TAB BID 09/03 1000 AC 09/04 PO 0759 Tamsulosin HCl 0.4 MG DAILY 08/31 1000 AC 09/04 PO 0757 Warfarin Sodium 3 MG COUMADIN 1700 ONE 09/03 1700 DC 09/03 PO 09/03 1701 1622 Results Last 48 Hrs of Labs/Mics: Laboratory Tests 09/04/17 0628: Anion Gap 13, Estimated GFR > 60, BUN/Creatinine Ratio 18.0, PT 25.8 H, INR 2.48 H, CBC w Diff NO MAN DIFF REQ, RBC 4.07 L, MCV 90.2, MCH 29.6, MCHC 32.8 L, RDW 16.6 H, MPV 9.9, Gran % 77.1 H, Lymphocytes % 8.1 L, Monocytes % 13.4 H, Eosinophils % 1.2, Basophils % 0.2, Absolute Granulocytes 4.2, Absolute Lymphocytes 0.4 L, Absolute Monocytes 0.7 H, Absolute Eosinophils 0.1, Absolute Basophils 0 09/03/17 0635: Anion Gap 16, Estimated GFR > 60, BUN/Creatinine Ratio 18.0, PT 24.0 H, INR 2.30 H, APTT 46 H, CBC w Diff NO MAN DIFF REQ, RBC 4.33 L, MCV 89.3, MCH 29.8 , MCHC 33.3, RDW 16.8 H, MPV 9.9, Gran % 77.3 H, Lymphocytes % 9.1 L, Monocytes % 12.1 H, Eosinophils % 1.1, Basophils % 0.4, Absolute Granulocytes 5.1, Absolute Lymphocytes 0.6 L, Absolute Monocytes 0.8 H, Absolute Eosinophils 0.1, Absolute Basophils 0 09/03/17 0630: APTT Cancelled 09/02/17 2231: APTT > 120 *H Assessment/Plan Assessment/Plan In summary this 82-year-old gentleman has the following problems 1. Acute on chronic systolic heart failure 2. History of ischemic cardiomyopathy and left bundle-branch block with a recent cardiac catheterization (04/2017) showing severe three-vessel [place] coronary artery disease with patent bifurcating saphenous vein graft to the 2nd obtuse marginal and occluded saphenous vein graft to the distal right coronary artery with no obvious evidence of internal mammary artery graft (medical management advised); EF currently 35-40% 3. History of coronary artery disease with remote CABG 4. History of pulmonary embolism on Coumadin 5. History of diabetes mellitus 6. History of hypertension and hyperlipidemia 7. Recently diagnosed atrial fib. with controlled ventricular response rate; s/ p FALLON/CV 09/03/17 8. PVCs I would suggest changing amiodarone scheduled to the following 400 mg twice a day for 3 days 400 mg once a day for 3 days 200 mg once a day Because of amiodarone warfarin interaction I would decrease warfarin maintenance dose, and have more frequent evaluation of PT/INR every 2-3 days for a week. Also given a slip for lites BUN/creatinine and creatinine within a week Would resume maintenance Lasix 40 mg a.m. 20 mg p.m. A patient feels well he is stable to be discharged Continue telemetry? Yes
[2017-09-04] MEDS ORDERED: AMIODARONE HCL200 M1 PO ×6 (11:00→14:56)
[2017-09-04] MEDS ORDERED: COUMADIN2.5 M1 PO ×3 (11:00→14:56)
[2017-09-04] MEDS ORDERED: LASIX20 M1 PO ×3 (11:00→14:56)
--- NOTE | 2017-09-04 11:13 | Patient Discharge Instructions ---
Discharge Instructions General Discharge Information You were seen/treated for: New onset atrial fibrillation s/p cardioversion You had these procedures: Cardioversion Watch for these problems: Severe chest pain, shortness of breathing, dizziness, bleeding, change in bowel movement, palpitation, heart racing or worsening of any other symptoms Special Instructions: Please follow-up with your PCP within one week of discharge. Please follow with your orthopedic shoe fitter within 1 week of discharge. Please note that some of her medications are changed, please repeat your instructions and follow carefully. Please do lab works as ordered (INR every 3 days and basic metabolic profile next week) and follow with your PCP. Your INR should be between 2-3, otherwise contact your PCP. Please ask your PCP/orthopedic shoe fitter to adjust your Warfarin dose after completing the Amiodarone pills. Diet Recommended Diet: Diabetic, Heart Healthy, 1000 ml fluids restriction Activity Full Activity/No Limits: No Activity Self Limited: Yes Acute Coronary Syndrome Inclusion Criteria At DC or during hospital stay patient has or had the following: ACS DIAGNOSIS No Discharge Core Measures Meds if any: Prescribed or Continued at Discharge Meds if any: NOT Prescribed or Continued at Discharge Congestive Heart Failure Inclusion Criteria At DC or during hospital stay patient has or had the following: CHF DIAGNOSIS Yes Discharge Core Measures Meds if any: Prescribed or Continued at Discharge Meds if any: NOT Prescribed or Continued at Discharge Comment Patient on Entresto Cerebrovascular accident Inclusion Criteria At DC or during hospital stay patient has or had the following: CVA/TIA Diagnosis No Discharge Core Measures Meds if any: Prescribed or Continued at Discharge Meds if any: NOT Prescribed or Continued at Discharge Venous thromboembolism Inclusion Criteria VTE Diagnosis No VTE Type NONE VTE Confirmed by (Test) NONE Discharge Core Measures - Per Current guidelines, there needs to be overlap - treatment for the first 5 days of Warfarin therapy. - If discharged on Warfarin prior to 5 days of - overlap therapy, the patient will need to be - assessed for post discharge needs including - *Post discharge parental anticoagulation - *Warfarin and/or parental anticoagulation education - *Follow up date to check INR post discharge At least 5 days overlap therapy as Inpatient No Meds if any: Prescribed or Continued at Discharge Note: Overlap Therapy is Warfarin and Anticoagulant Meds if any: NOT Prescribed or Continued at Discharge
[2017-09-04 14:10] VITALS: BP 102/64
[2017-09-04] MEDS ORDERED: ISOSORBIDE MONO30 M1 PO ×2 (14:42→14:56)
--- NOTE | 2017-09-05 08:02 | Discharge Summary ---
Hospital Course Allergies: Coded Allergies: NO KNOWN ALLERGIES (NONE 08/01/17) Discharge Instructions Medications at Discharge Discharge Medications: Stop taking the following medications: Furosemide (Lasix) 40 MG TABLET ORAL DAILY Qty = 60 Isosorbide Mononitrate (Isosorbide Mononitrate ER) 60 MG TAB.ER.24H ORAL DAILY Qty = 30 Warfarin Sodium (Warfarin Sodium) 6 MG TABLET ORAL DAILY Qty = 90 Continue taking these medications: Esomeprazole (Nexium) 40 MG CAPSULE.DR 1 Capsule ORAL DAILY Comments: Last Taken: 09/04/17 Time: 5:39 OMEPRAZOLE GIVEN SUBSTITUTE Tamsulosin HCl (Flomax) 0.4 MG CAP.ER.24H 1 Capsule ORAL DAILY Qty = 30 Comments: NOT GIVEN IN HOSPITAL Ranolazine (Ranexa) 500 MG TAB.ER.12H 2 Tablet ORAL TWICE DAILY Qty = 30 Comments: Last Taken: 09/04/17 Time: 0758 Solifenacin Succinate (Vesicare) 10 MG TABLET 0.5 Tablet ORAL DAILY Comments: NOT GIVEN IN HOSPITAL Rosuvastatin Calcium (Crestor) 10 MG TABLET 1 Tablet ORAL DAILY Comments: Last Taken: 08/03/18 Time: 1621 LIPITOR GIVEN SUBSTITUTE Metoprolol Succ XL (Toprol XL) 25 MG TAB 25 Milligram ORAL DAILY Qty = 30 Comments: Last Taken: 09/04/17 Time: 0758 Aspirin (Aspirin*) 81 MG TAB.CHEW 81 Milligram ORAL DAILY Qty = 60 Comments: Last Taken: 09/04/17 Time: 0759 Sacubitril/Valsartan (Entresto 49 MG-51 MG Tablet) 49 MG-51 MG TABLET 1 Tablet ORAL TWICE DAILY Days = 28 Comments: Last Taken: 09/04/17 Time: 0759 Ferrous Sulfate (Ferrous Sulfate) 325 MG (65 MG IRON) TABLET 1 Tablet ORAL DAILY Comments: NOT GIVEN IN HOSPITAL Metformin HCl (Metformin HCl ER) 500 MG TAB.ER.24H 1 Tablet ORAL TWICE DAILY Comments: NOT GIVEN IN HOSPITAL Nitroglycerin (Nitrostat) 0.3 MG TAB.SUBL 1 Tablet SUBLINGUAL As Directed as needed for CHEST PAIN Comments: NOT GIVEN IN HOSPITAL Ubidecarenone (Co Q-10) 100 MG CAPSULE 1 Capsule ORAL DAILY Comments: NOT GIVEN IN HOSPITAL Cyanocobalamin (Vitamin B-12) (Vitamin B-12) 100 MCG TABLET 1 Tablet ORAL DAILY Comments: NOT GIVEN IN HOSPITAL Finasteride (Proscar) 5 MG TABLET 1 Tablet ORAL DAILY Comments: Last Taken: 09/04/17 Time: 0758 Start taking the following new medications: Furosemide (Lasix) 20 MG TABLET 0 ORAL SEE INSTRUCTIONS Qty = 90 No Refills Instructions: Please see instructions below: . Comments: Please take: 2 pills at 7:30 am, 1 pill at 4:30 pm Last Taken: 09/04/17 Time: 0631 Isosorbide Mononitrate (Isosorbide Mononitrate ER) 30 MG TAB.ER.24H 30 Milligram ORAL DAILY Qty = 30 No Refills Instructions: . Warfarin Sodium (Coumadin) 2.5 MG TABLET 0 ORAL SEE INSTRUCTIONS Qty = 45 No Refills Instructions: Please see instructions below. Comments: Last Taken: 09/03/17 Time: 1622 Please take 2 pills, at 5pm on to friday take 1 pill, at 5pm on Friday and friday please check INR every 3 days and contact your PCP if result not between 2-3. Amiodarone (Cordarone) 200 MG TAB 0 ORAL SEE INSTRUCTIONS Qty = 17 No Refills Instructions: Please take medication as follow: Comments: Last Taken: 09/04/17 Time: 075 .2 pill on 09/04 at 10pm 2 pill, twice a day (10 Am and 10 pm), on 09/05 and 09/06/17, 2 pill, once a day (10Am) on 09/07, 09/08/ and 09/09/17, 1 pill, once a day (10am) on 09/10/17 and then stop
== END 2017-09-04 15:26 | disposition home health service (06) | DRG 308 ==
LOC: ERH 19:45 → ERHI 21:43 → 1NO 21:43 → ENRESERV 23:06 → 1NO 08-31 02:00 → ENTRNSPT 09-04 14:46 → ENPENDDIS 09-04 14:50 → EDTRNSPT 09-04 14:58 → EDTRNSPTSTS 09-04 14:58 → CMPTRNSPT 09-04 15:01 → 1NO 09-04 15:26
PROVIDERS: Emergency Medicine; Internal Medicine; Radiology Vascular & Interventional Radiology; Student in an Organized Health Care Education/Training Program
PROC: 5A2204Z Restoration of Cardiac Rhythm, Single (ICD-10-PCS; principal; 2017-09-03)
PROC: B246ZZ4 Ultrasonography of Right and Left Heart, Transesophageal (ICD-10-PCS; principal; 2017-09-03)
DX: I48.91 Unspecified atrial fibrillation (principal); I50.23 Acute on chronic systolic (congestive) heart failure; E87.2 Acidosis; I25.5 Ischemic cardiomyopathy; E11.9 Type 2 diabetes mellitus without complications; I11.0 Hypertensive heart disease with heart failure; I44.7 Left bundle-branch block, unspecified; Z95.1 Presence of aortocoronary bypass graft; E78.5 Hyperlipidemia, unspecified; I49.3 Ventricular premature depolarization; N40.0 Benign prostatic hyperplasia without lower urinary tract symptoms; E87.6 Hypokalemia; K21.9 Gastro-esophageal reflux disease without esophagitis; Z79.84 Long term (current) use of oral hypoglycemic drugs; Z86.718 Personal history of other venous thrombosis and embolism; Z79.01 Long term (current) use of anticoagulants; Z87.891 Personal history of nicotine dependence
CPT/HCPCS: 1NP; ERO; 36415; 71045; 81001; 81003; 82436; 87040; 87070; 87449; 87450; 87804; 87804-59; 93005; 93010; 93306; 93325; J0456; J0696; J1644; J1940; J3490; J7040; J7060

== ENCOUNTER 2018-01-27 07:53 | Inpatient (IN) | payer OTHER, MEDICARE ==
[~2018-01-27] VITALS: Ht 172.7 cm; Wt 107.8 kg
[~2018-01-27 07:53] MED LIST changes: +AMIODARONE HCL200 M1 PO; +CO Q-10100 MG PO; +COUMADIN10 M1 PO; +COUMADIN2.5 M1 PO; +FERROUS SULFAT325 M3 PO; +ISOSORBIDE MONO30 M1 PO; +LASIX20 M1 PO; +METFORMIN HCL500 M4 PO; +NITROSTAT0.3 M1 SL; +PROSCAR5 M1 PO; +TOPROL XL50 M1 PO; -VESICARE10 MG PO; +VESICARE5 M1 PO; +VITAMIN B-12100 MC1 PO; +WARFARIN SODIUM6 M1 PO
--- NOTE | 2018-01-27 10:13 | Proc Note Endoscopy ---
Endoscopy Procedure Medical History: unchanged (see lavon ov note 01/08/18) Mental Status: alert/oriented Heart/Lung Eval Prior to Sedation: within normal limits Candidate for Sedation? Yes Procedure Date: 01/27/18 Procedure Type: EGD w/biopsy Window Glazier: Napoleon Cloud MD ASA Classification: III Indications: Nausea and vomiting in a patient with a history of peptic ulcer disease status post Billroth I anastomosis. Gastric emptying study consistent with gastroparesis. An upper endoscopy is being performed to rule out a mechanical obstruction. Instrument: diagnostic gastroscope Meds Received: MAC Patient's Tolerance: fair Complications: vomiting/probable aspiration requiring intubation Extent Reached: david limb of the jejunum Procedure: After getting written informed consent the patient was placed in the left lateral decubitus position with pulse oximetry, cardiac monitoring, and supplemental oxygen given. A bite block was inserted and IV sedation was given until the desired effect was achieved. A high definition upper Olympus endoscope was then inserted into the mouth and advanced to the David limb of the jejunum with a moderate amount of difficulty secondary to J-shaped stomach and a moderate amount of leftover food. During the procedure the patient began vomiting and became hypoxic a which point the scope was removed from the patient he was actually suctioned and given supplemental oxygen with an Ambu bag and was ultimately intubated. Retroflexed views and photodocumentation was obtained. After the procedure he continued to have some vomiting and it wasn't felt that he could be safely extubted so he was admitted to the ICU for further managment of the respiratory complications. Findings: Esophagus: The esophageal mucosa was grossly normal appearance and was normal. Z line at 40 cm from incisors Stomach: There was a moderate amount of liquid and solid food in the gastric remnant. In Gastric mucosa was atrophic in appearance, but there were no ulcers, erosions, or obvious masses appreciated. Retroflexed views revealed a significant amount of food which obscured the rest of the cardia and fundus. The surgical anastomosis was erythematous and friable, but was widely patent and was ultimately able to be traversed with the upper endoscope with putting torque on the scope was necessary secondary to the shape of the stomach. Distention was normal peristalsis did appear decreased. Biopsies were obtained from the surgical anastomosis and random biopsies were obtained from the gastric remnant with cold biopsy forceps and were sent to pathology for further evaluation. David limb of the jejunum: The visualized portion of the jejunum was normal in appearance. Random biopsies were obtained from the jejunum with cold biopsy forceps and were sent pathology for further evaluation. Impression: 1. Findings consistent with gastroparesis. 2. Friable erythematous surgical anastomosis, but no obvious mechanical obstruction. 3. J-shaped stomach. 4. Hypoxia and probable aspiration treated with intubation and admissiion to the ICU. Recommendations: 1. He should continue prilosec regularly. 2. He should continue reglan as needed. 3. He should eat smaller more frequent meals. 4. He should follow up the pathology results as an outpatient. 5. Management of respiratory complications as per the critical care team. CC: Rin RODRIGUEZ,Parish Velazquez
--- NOTE | 2018-01-27 10:32 | History & Physical ---
See Addendum Maile RODRIGUEZ,Robinson 01/27/18 1031: General Information and HPI MD Statement: I have seen and personally examined CHECOSAM and documented this H&P. The patient is a 82 year old M who presented with a patient stated chief complaint of [ASPIRATION PNEUMONIA]. Source of Information: old records Exam Limitations: intubated History of Present Illness: Patient is an 82-year-old male with multiple medical problem was under going upper GI endoscopy for worsening reflux symptoms and constipation over the past few months of uncertain etiology, complicated by aspiration needed intubation leading to admission to the ICU. Patient is intubated and is on ventilation and under sedation. We talked to Mr. Apple, who is a nephew of the patient. According to him he was having constant nausea and constipation since couple of days and advised for upper GI endoscopy. He had endoscopy around 2 or 3 years ago with a similar incidence of aspiration leading to intubation and ventilation. Recently he started having multiple episodes of fall and wanted to go to elderly living facility. He has a meeting on 01/30/2018. Patient does have living will and according to the tom, the decision is on him and currently he want full code -resuscitation and ventilation should be continue. Past medical history - Cardiac hx - * External cardioversion on 12/26/2017 with single 35 to ICD shock followed by normal sinus rhythm * Biventricular ICD implant on 10/30/2017 at [facility] by Dr Flavio Wang * Atrial Fibrillation (Dx Sep 2017) * History of chronic systolic heart failure, LVEF 35%(Aug 2017) * Bilateral lower extremity edema * Cardiac catheterization (04/2017) -severe three-vessel [place] coronary artery disease with patent bifurcating saphenous vein graft to the 2nd obtuse marginal and occluded saphenous vein graft to the distal right coronary artery with no obvious evidence of internal mammary artery graft * History of a PE on Coumadin with prior IVC filter * Left bundle branch block (2016) * Ischemic cardiomyopathy * Coronary artery disease status post CABG * Hypertension * Hyperlipidemia GI hx * Gastroparesis syndrome -gastric emptying studies positive * PUD s/p billroth 1 anastomosis many years ago Endocrine * Type 2 diabetes Neurology - * Parkinson's disease Personal history- Ex-smoker Occasional use of alcohol No illicit drug abuse Primary care provider - Dr Parish Gar MD is Echo 2018 -Moderate left ventricular dilatation. Left ventricular wall thickness mildly increased. Mildly abnormal left ventricular ejection fraction estimated at 35-40%. Thinned/scarred posterior wall. Hypokinetic anterior wall. Allergies/Medications Allergies: Coded Allergies: NO KNOWN ALLERGIES (NONE 08/01/17) Home Med list Amiodarone (Cordarone) 200 MG TAB 1 TAB PO BID Afib control (Reported) Aspirin (Ecotrin*) 81 MG TABLET.DR 1 TAB PO DAILY Heart Brimonidine Tartrate (Alphagan P) 0.15 % DROPS 1 GTT OPH BID eye redness ( Reported) Carbidopa/Levodopa (Carbidopa-Levodopa 25-100 Tab) 25 MG-100 MG TABLET 1 TAB PO BID Parkinsonism (Reported) Cyanocobalamin (Vitamin B-12) (Vitamin B-12) 100 MCG TABLET 1 TAB PO DAILY SUPPLEMENT (Reported) Esomeprazole (Nexium) 40 MG CAPSULE.DR 1 CAP PO DAILY reflux (Reported) Ferrous Sulfate 325 MG (65 MG IRON) TABLET 1 TAB PO TID Supplements (Reported ) Finasteride (Proscar) 5 MG TABLET 1 TAB PO DAILY BHP (Reported) Furosemide (Lasix) 20 MG TABLET 40 MG PO DAILY heart health Isosorbide Mononitrate (Isosorbide Mononitrate ER) 30 MG TAB.ER.24H 60 MG PO DAILY Heart Healthy . Metformin HCl (Metformin HCl ER) 500 MG TAB.ER.24H 1 TAB PO BID DM (Reported) Metoprolol Succinate 50 MG TAB.ER.24H 1 TAB PO DAILY Afib Nitroglycerin (Nitrostat) 0.3 MG TAB.SUBL 1 TAB SL AD PRN CHEST PAIN ( Reported) Ranolazine (Ranexa) 500 MG TAB.ER.12H 2 TAB PO BID Heart (Reported) Rosuvastatin Calcium (Crestor) 10 MG TABLET 1 TAB PO DAILY GI (Reported) Sacubitril/Valsartan (Entresto 49 MG-51 MG Tablet) 49 MG-51 MG TABLET 1 TAB PO BID Heart Failure Tamsulosin HCl (Flomax) 0.4 MG CAP.ER.24H 1 CAP PO DAILY prostate (Reported) Ubidecarenone (Co Q-10) 100 MG CAPSULE 1 CAP PO DAILY SUPPLEMENT (Reported) Warfarin Sodium (Coumadin) 3 MG TABLET 1 TAB PO A-Fib 4 times weekly, fri- Past History Medical History Neurological: NONE EENT: NONE Cardiovascular: CHF, hypertension, hyperlipidemia Respiratory: pneumonia Gastrointestinal: constipation Hepatic: NONE Renal: NONE Musculoskeletal: NONE Psychiatric: NONE Endocrine: diabetes Blood Disorders: DVT, PE Cancer(s): NONE SHADE BANDER/Reproductive: NONE History of MRSA: No History of VRE: No History of CDIFF: No Influenza Vaccine: 04/12/17 Surgical History Surgical History: appendectomy, CABG (X 4 MORE THAN 10 YEARS AGO), cholecystectomy, IVC FILTER Past Family/Social History Family History Relations & Conditions if any FATHER (heart disease). Psychosocial History Who Do You Live With? self Services at Home: None Primary Language: Salvadorean Functional Ability ADLs Independent: dressing, eating, toileting, bathing. Ambulation: independent IADLs Independent: shopping, housework, finances, food prep, telephone, transportation , medication admin. Review of Systems Review of Systems Constitutional: Denies: no symptoms. Comments cannt comment as patient is intubated Exam & Diagnostic Data Last 24 Hrs of Vital Signs/I&O Vital Signs Date Time Temp Pulse Resp B/P B/P Pulse O2 O2 Flow FiO2 Mean Ox Delivery Rate 01/28 0612 40 01/28 0557 60 16 82/41 01/28 0400 95 Ventilator 40% 01/28 0336 40 01/28 0055 40 01/28 0010 97.9 61 20 88/60 01/28 0000 95 Ventilator 40% 01/28 0000 97.8 61 20 88/60 95 Ventilator 40% 01/27 2223 40 01/27 2000 97 Ventilator 50% 01/27 1947 40 01/27 1810 66 110/54 01/27 1625 50 01/27 1600 97.4 68 17 140/74 97 Ventilator 50% 01/27 1600 97 Ventilator 50% 01/27 1403 50 01/27 1336 Ventilator 50% 01/27 1200 96 Ventilator 60% 01/27 1110 100 01/27 1100 96.6 69 17 128/64 98 Ventilator 100% Intake & Output 01/28 0800 01/28 0000 01/27 1600 Intake Total 1536 771.5 386 Output Total 158 200 375 Balance 1378 571.5 11 Intake, IV 1536 771.5 386 Intake, Oral 0 Number 2 1 Bowel Movements Output, 25 100 Gastric Drainage Output, Urine 133 200 275 Patient 107.133 kg 107.53 kg Weight Weight Bed scale Bed scale Measurement Method Physical Exam General Appearance ON VENTILATOR Skin No Rashes, No Breakdown Skin Temp/Moisture Exam: Warm/Dry Sepsis Skin Exam (color): Normal for Ethnicity HEENT Atraumatic, PERRLA, EOMI Neck Supple, No JVD Cardiovascular Normal S1, Normal S2 Lungs bilateral upper lobe crackles Abdomen Soft, No Tenderness, distended, BS+ Neurological cannt comment under sedation Extremities No Clubbing, No Cyanosis, No Edema Last 24 Hrs of Labs/Louis: Laboratory Tests 01/28/18 0505: pH 7.43, pCO2 35, pO2 87, HCO3 23, ABG O2 Sat (Measured) 96.0, P-50 (Temp Corrected) Y, Carboxyhemoglobin 0.4 L, O2 Concentration % 40%, Temperature 98.0 , Respiration Rate 16, O2 Delivery Method ESPRIT, Vent Mode AC, Expiratory Pressure 5, Tidal Volume 550, Phlebotomy Draw Site RIGHT BRACHIAL 01/28/18 0450: Idr-V-[id number] Pept 2900 H 01/28/18 0450: Anion Gap 11, Estimated GFR 53 L, Glucose 145 H, Calcium 7.7 L, Phosphorus 4.6 H, Magnesium 1.6, Total Bilirubin 0.8, AST 20, ALT 26, Albumin 2.7 L, CBC w Diff MAN DIFF ORDERED, RBC 3.70 L, MCV 95.7 H, MCH 31.7 H, MCHC 33.2, RDW 15.7 H, MPV 9.7, Gran % 84.0 H, Lymphocytes % 6.6 L, Monocytes % 9.2, Eosinophils % 0.1, Basophils % 0.1, Absolute Granulocytes 9.9 H, Segmented Neutrophils 76 H, Band Neutrophils 9 H, Absolute Lymphocytes 0.8 L, Lymphocytes 7 L, Monocytes 8, Absolute Monocytes 1.1 H, Absolute Eosinophils 0 , Absolute Basophils 0, Platelet Estimate ADEQUATE, Polychromasia 1+, Basophilic Stippling 1+, Ovalocytes FEW, Fld Total RBCs Counted 100 01/28/18 0157: APTT 78 H 01/27/18 2350: Anion Gap 10, Estimated GFR 58 L, Glucose 150 H, Calcium 7.8 L, Phosphorus 3.7, Magnesium 1.4 L, Total Bilirubin 0.8, AST 22, ALT 23, Albumin 2.8 L 01/27/18 1825: PT 12.2, INR 1.12 01/27/18 1210: pH 7.41, pCO2 40, pO2 314 H, HCO3 25, ABG O2 Sat (Measured) 98.0, P-50 (Temp Corrected) Y, Carboxyhemoglobin 1.6, O2 Concentration % 100%, Temperature 96.6 L, Respiration Rate 16, O2 Delivery Method VENT, Vent Mode VC-AC, Expiratory Pressure 5, Tidal Volume 550, Phlebotomy Draw Site LEFT RADIAL 01/27/18 1145: Anion Gap 9, Estimated GFR > 60, Glucose 166 H, Calcium 8.5, Phosphorus 4.0, Magnesium 1.7, Total Bilirubin 0.9, AST 24, ALT 23, Troponin I 0.02, Albumin 3.4 L, CBC w Diff NO MAN DIFF REQ, RBC 4.00 L, MCV 96.0 H, MCH 31.8 H, MCHC 33.1 , RDW 15.7 H, MPV 9.9, Gran % 75.6 H, Lymphocytes % 14.6 L, Monocytes % 8.4, Eosinophils % 1.1, Basophils % 0.3, Absolute Granulocytes 3.7, Absolute Lymphocytes 0.7 L, Absolute Monocytes 0.4, Absolute Eosinophils 0.1, Absolute Basophils 0 01/27/18 1125: Urine Color YEL, Urine Clarity CLEAR, Urine pH 6.0, Ur Specific [place] >= 1.030 , Urine Protein TRACE H, Urine Ketones NEG, Urine Nitrite NEG, Urine Bilirubin NEG, Urine Urobilinogen 1.0, Ur Leukocyte Esterase NEG, Ur Microscopic SEDIMENT EXAMINED, Urine RBC 3-5, Ur Epithelial Cells FEW, Urine Bacteria FEW H, Hyaline Casts 10-15 H, Granular Casts RARE H, Urine Mucus MOD H, Urine Hemoglobin SMALL H, Urine Glucose NEG 01/27/18 1107: Troponin I Cancelled Microbiology 01/27 1145 BLOOD: Blood Culture - RECD 01/27 1145 BLOOD: Blood Culture - RECD 01/27 1125 URINE ROUT: Urine Culture - RECD 01/27 1111 LOWER RESP: Respiratory Culture - RES 01/27 1111 LOWER RESP: Gram Stain - RES 01/27 1110 UPPER RESP: Surveillance Culture - RECD 01/27 1110 GI: Surveillance Culture - RECD 01/27 1056 URINE ROUT: Urine Culture - COLB Diagnostic Data EKG Results paced rhytum, broad QRS, APC's Assessment/Plan Assessment: Patient is an 82-year-old male with multiple medical problem was under going upper GI endoscopy for worsening reflux symptoms and constipation over the past few months of uncertain etiology, complicated by aspiration needed intubation leading to admission to the ICU. Preprocedure vital signs-pulse 84, blood pressure 133/66, respiratory rate 16, temperature 97F, SPO2 98% on room air. He underwent endoscopy in the morning. During the procedure he began vomiting and became hypoxic to a point the scope was removed from the patient he was actually suctioned and given supplemental oxygen with an Ambu bag and was ultimately intubated. To protect the airway endotracheal intubation was done. After he continues to have gastric secretions from the nose, mouth, endotracheal intubation. It was planned to admit the patient in the ICU. Vital signs after the intubation pulse 60, blood pressure 96/68, SPO2 100%. Assessment and plan -patient is a 82-year-old male with multiple medical problem , underwent upper GI endoscopy secondary to worsening reflux symptoms and constipation to evaluate for GI obstruction. Upper GI endoscopy was complicated by vomiting needed intubation and ICU admission. Plan - Aspiration pneumonia secondary to upper GI endoscopy leading to gagging and vomiting - * Admitted to the ICU * Follow-up CBC, ICU bundle, chest x-ray, lower respiratory tract culture, blood cultures, urine cultures, urine analysis. * IV fluid normal saline 50 cc/h * Injection Unasyn 1.5 g IV every 6 * Injection pantoprazole 40 mg IV OD * Head end of the bed elevation * Strict intake output charting History of coronary artery disease, status post bypass, atrial fibrillation on Coumadin, biventricular ICD - * We will follow cardiology consult * Discussed with Dr. Galvez advised for injection metoprolol 5 mg every 6, we can hold on anemia and if needed can restart tomorrow. * We will start patient on injection heparin drip for anticoagulation Type 2 diabetes - * Keep n.p.o. * IV fluid normal saline 75 cc/h * Fingerstick every 6 hourly * NovolinR according to the sliding scale. CODE STATUS -full code, if patient's condition deteriorated please talk to Mr. Apple, on his cell number -[phone]. He is having living will, and will decide for further course including CODE STATUS. He wanted to be get updated about the management plan. DVT prophylaxis -ALPS Diet -n.p.o. As Ranked By This Provider Problem List: 1. Aspiration pneumonia Core Measures/Misc (04/20) Acute Coronary Syndrome ACS Diagnosis: No Congestive Heart Failure Congestive Heart Failure Diagnosis No Cerebrovascular Accident CVA/TIA Diagnosis: No VTE (View Protocol) VTE Risk Factors Age>40 No Mechanical VTE Prophylaxis d/t N/A MechProphylax Ordered No VTE Pharm Prophylaxis d/t NA PharmProphylax ordered Sepsis (View protocol) Sepsis Present: No If YES complete Sepsis Event Note If YES complete Sepsis Event Note Larry Taylor MD 01/27/18 1121: Core Measures/Misc (04/20) Sepsis (View protocol) If YES complete Sepsis Event Note If YES complete Sepsis Event Note Attending MD Review Statement Attending Statement Attending MD Statement: examined this patient, discuss w/resident/PA/SCHOOL CUSTODIAN, agreed w/resident/PA/SCHOOL CUSTODIAN, discussed with family, reviewed EMR data (avail), discussed with nursing, discussed with case mgmt, reviewed images, amended to note Attending Assessment/Plan: Impression 82 year old man * aspiration pneumonia/pneumonitis - acute hypoxemic respiratory failure requiring intubation Plan -CXR, ABG -mechanical ventilation -unasyn empirically -f/u GI recommendations -sedation for now DVT prophylaxis at all times TTS 40 min
[2018-01-27 11:00] VITALS: BP 128/64
[2018-01-27] MEDS ORDERED: ALPHAGAN P5 ML OPH (11:19)
--- NOTE | 2018-01-27 11:22 | Admission Certification ---
Admission Certification Certification Statement - As attending physician, I certify that at the time of - admission, based on clinical presentation, severity of - symptoms, need for further diagnostic testing and - therapeutic interventions, and risk of adverse outcomes - without in-hospital treatment, in my clinical assessment, - this patient requires an acute hospital stay for a minimum - of two nights or longer. I have also considered psychsocial - factors such as support system, advanced age, financial - issues, cognitive issues, and failed out-patient treatments, - past re-admission history, safety of patient, and lack of - compliance as applicable. Specific rationale supporting this admission is: aspiration pna during EGD requiring intubation ICU level of care
[2018-01-27] MEDS ORDERED: CARBIDOPA-LEVO1 EAC7 PO (11:23)
[2018-01-27] MEDS ORDERED: AMIODARONE HCL200 M1 PO (12:12)
[2018-01-27] MEDS ORDERED: COENZYME Q10100 MG PO (12:13)
[2018-01-27] MEDS ORDERED: ASPIRIN EC81 M1 PO (12:22)
[2018-01-27] MEDS ORDERED: METOPROLOL SUCC50 M2 PO (12:22)
[2018-01-27] MEDS ORDERED: LASIX20 M1 PO (12:22)
[2018-01-27] MEDS ORDERED: COUMADIN3 M1 PO (12:22)
[2018-01-27] MEDS ORDERED: ISOSORBIDE MONO30 M1 PO (12:22)
[2018-01-27 12:43] LABS: ABSOLUTE BASOPHIL COUNT 0 /CUMM (0.0-0.2); ABSOLUTE EOSINOPHIL COUNT 0.1 /CUMM (0.0-0.7); ABSOLUTE GRANULOCYTE CT 3.7 /CUMM (1.4-6.5); ABSOLUTE LYMPH COUNT 0.7 /CUMM (1.2-3.4); ABSOLUTE MONOCYTE COUNT 0.4 /CUMM (0.10-0.60); BASOPHIL % 0.3 % (0.0-2.0); EOSINOPHIL % 1.1 % (0-5); GRANULOCYTE % 75.6 % (42.2-75.2); HEMATOCRIT 38.4 % (42-52); MEAN CORPUSCULAR HGB 31.8 PG (27.0-31.0); MEAN CORPUSCULAR HGB CONC 33.1 G/DL (33.0-37.0); MEAN PLATELET VOLUME 9.9 FL (7.4-10.4); PLATELET COUNT 170 /CUMM (130-400); RBC DISTRIBUTION WIDTH 15.7 % (11.5-14.5); WHITE BLOOD CELL COUNT 4.9 /CUMM (4.8-10.8)
--- NOTE | 2018-01-27 12:53 | RADIOLOGY REPORT ---
EXAMINATION: XR PORTABLE CHEST CLINICAL INFORMATION: Aspiration pneumonia. COMPARISON: 08/30/2017 TECHNIQUE: Portable frontal view of the chest was obtained. FINDINGS: The patient is intubated, the endotracheal tube tip projects 4.5 cm from the eva. There may been an enteric tube in place, due to technique the tip is not well visualized. The patient is status post median sternotomy. There is a new left-sided cardiac pacemaker in place. Low lung volumes with patchy and streaky airspace opacities in the left greater than right lower which may reflect a combination of atelectasis, and/or infiltrate. No pneumothorax. IMPRESSION: Patchy and linear opacities in the left greater than right lung base may reflect atelectasis versus developing infiltrates. Endotracheal tube tip is 4.5 cm from the eva. There may be an enteric tube in place, due to technique, the distal end is not visualized. Correlate clinically.
--- NOTE | 2018-01-27 13:43 | Cons- Cardiology ---
General Information and HPI Consulting Request Date of Consult: 01/27/18 Requested By: Napoleon Cloud MD Reason for Consult: Ischemic cardiac myopathy, atrial fibrillation Source of Information: old records Exam Limitations: unable to give history, clinical condition History of Present Illness: The patient is an 82-year-old gentleman with a past medical history of coronary artery disease, status post prior bypass surgery, and ischemic cardiomyopathy with an LVEF of 30 to 35%, frequent unifocal PVCs, status post biventricular AICD (Dr. Wang), diabetes mellitus, persistent atrial fibrillation and hypertension. The patient underwent endoscopy, and his course was complicated by aspiration requiring intubation. While in the ICU, further management of his outpatient cardiac issues was questioned. The patient is currently intubated and sedated. He is not responsive to questions or touch. He remains AV sequentially paced with frequent PVCs ( baseline outpatient has frequent PVCs); however, the paced complex appears different than on prior tracing (wider complex). Allergies/Medications Allergies: Coded Allergies: NO KNOWN ALLERGIES (NONE 08/01/17) Home Med List: Amiodarone (Cordarone) 200 MG TAB 1 TAB PO BID Afib control (Reported) Aspirin (Ecotrin*) 81 MG TABLET.DR 1 TAB PO DAILY Heart Brimonidine Tartrate (Alphagan P) 0.15 % DROPS 1 GTT OPH BID eye redness ( Reported) Carbidopa/Levodopa (Carbidopa-Levodopa 25-100 Tab) 25 MG-100 MG TABLET 1 TAB PO BID Parkinsonism (Reported) Cyanocobalamin (Vitamin B-12) (Vitamin B-12) 100 MCG TABLET 1 TAB PO DAILY SUPPLEMENT (Reported) Esomeprazole (Nexium) 40 MG CAPSULE.DR 1 CAP PO DAILY reflux (Reported) Ferrous Sulfate 325 MG (65 MG IRON) TABLET 1 TAB PO TID Supplements (Reported ) Finasteride (Proscar) 5 MG TABLET 1 TAB PO DAILY BHP (Reported) Furosemide (Lasix) 20 MG TABLET 40 MG PO DAILY heart health Isosorbide Mononitrate (Isosorbide Mononitrate ER) 30 MG TAB.ER.24H 60 MG PO DAILY Heart Healthy . Metformin HCl (Metformin HCl ER) 500 MG TAB.ER.24H 1 TAB PO BID DM (Reported) Metoprolol Succinate 50 MG TAB.ER.24H 1 TAB PO DAILY Afib Nitroglycerin (Nitrostat) 0.3 MG TAB.SUBL 1 TAB SL AD PRN CHEST PAIN ( Reported) Ranolazine (Ranexa) 500 MG TAB.ER.12H 2 TAB PO BID Heart (Reported) Rosuvastatin Calcium (Crestor) 10 MG TABLET 1 TAB PO DAILY GI (Reported) Sacubitril/Valsartan (Entresto 49 MG-51 MG Tablet) 49 MG-51 MG TABLET 1 TAB PO BID Heart Failure Tamsulosin HCl (Flomax) 0.4 MG CAP.ER.24H 1 CAP PO DAILY prostate (Reported) Ubidecarenone (Co Q-10) 100 MG CAPSULE 1 CAP PO DAILY SUPPLEMENT (Reported) Warfarin Sodium (Coumadin) 3 MG TABLET 1 TAB PO A-Fib 4 times weekly, Current Medications: Current Medications Sig/Franki Start time Last Medication Dose Route Stop Time Status Admin Ampicillin Sodium/ 1,500 MG Q6 01/27 1200 AC 01/27 Sulbactam Sodium IV 1333 Sodium Chloride 100 ML Chlorhexidine 1 GM .STK-MED ONE 01/27 1044 DC Gluconate TOP 01/27 1045 Heparin Sodium 25,000 UNIT Q24H 01/27 2000 AC (Porcine) IV Sodium Chloride 500 ML Insulin Human Regular 0 Q6 01/27 1200 AC 01/27 SC 1229 Metoprolol Tartrate 5 MG Q6 01/27 1800 AC IV Non-Formulary 0 SEE ADMIN CRITERIA 01/27 1100 CAN Medication ANY Pantoprazole Sodium 40 MG DAILY 01/27 1036 AC 01/27 IV 1226 Propofol 1,000 MG Q24H 01/27 1100 AC 01/27 N/A 1 UNIT IV 1226 Sodium Chloride 1,000 ML Q20H 01/27 1045 AC 01/27 IV 1226 Review of Systems Review of Systems: A full review of systems was unable to be obtained secondary to the patient's condition Past History Medical History Neurological: NONE EENT: NONE Cardiovascular: AFIB, CAD, CHF, hypertension, hyperlipidemia, myocardial infarction Respiratory: pneumonia Gastrointestinal: constipation, peptic ulcer disease, Gastroparesis Hepatic: NONE Renal: NONE Musculoskeletal: NONE Psychiatric: NONE Endocrine: diabetes Blood Disorders: DVT, PE Cancer(s): NONE MAT WEAVER/Reproductive: NONE Surgical History Surgical History: appendectomy, CABG (X 4 MORE THAN 10 YEARS AGO), cholecystectomy, IVC FILTER Family History Relations & Conditions If Any: FATHER (heart disease). Psychosocial History Who Do You Live With? self Services at Home: None Primary Language: Algerian Smoking Status: Former Smoker Functional Ability ADLs Independent: dressing, eating, toileting, bathing. Ambulation: independent IADLs Independent: shopping, housework, finances, food prep, telephone, transportation , medication admin. Exam & Diagnostic Data Vital Signs and I&O Vital Signs Date Time Temp Pulse Resp B/P B/P Pulse O2 O2 Flow FiO2 Mean Ox Delivery Rate 01/27 1200 96 Ventilator 60% 01/27 1110 100 01/27 1100 96.6 69 17 128/64 98 Ventilator 100% Intake & Output 01/27 1600 01/27 0800 01/27 0000 01/26 1600 01/26 0800 01/26 0000 Intake Total Output Total Balance Patient 237 lb Weight Weight Bed scale Measurement Method Physical Exam: General: Intubated, sedated HEENT: Sclera and conjunctiva within normal limits, without xanthelasmas. Neck: Carotids 2+ without bruits. Respiratory: Diffuse, scattered rhonchi, air movement is good, without accessory respiratory muscle use. Heart: Regular rate and rhythm, 2 out of 6 systolic ejection murmur left sternal border, without JVD. Abdomen: Soft, nontender, no masses, normoactive bowel sounds. Extremities: Without clubbing, cyanosis, without edema. Neuro: Nonfocal exam, strength, 5 out of 5 Skin: Within normal limits without lesions. Psych: Mood and affect: Unable to assess Labs/Louis Results: Laboratory Tests 01/27 01/27 1210 1145 Blood Gas pH (7.35 - 7.45 PH) 7.41 pCO2 (35 - 45 TORR) 40 pO2 (80 - 100 TORR) 314 H HCO3 (21 - 28 MEQ/L) 25 ABG O2 Sat (Measured) (>96.0 %) 98.0 P-50 (Temp Corrected) Y Carboxyhemoglobin (1.5 - 5.0 %) 1.6 O2 Concentration % 100% Temperature (97.0 - 100.0 FARH) 96.6 L Respiration Rate (BPM) 16 O2 Delivery Method VENT Vent Mode VC-AC Expiratory Pressure (CMH2O/P) 5 Tidal Volume (CC) 550 Chemistry Sodium (137 - 145 mmol/L) 140 Potassium (3.5 - 5.1 mmol/L) 4.1 Chloride (98 - 107 mmol/L) 101 Carbon Dioxide (22 - 30 mmol/L) 30 Anion Gap (5 - 16) 9 BUN (9 - 20 mg/dL) 16 Creatinine (0.7 - 1.2 mg/dL) 1.1 Estimated GFR (>60 ml/min) > 60 Glucose (65 - 99 mg/dL) 166 H Calcium (8.4 - 10.2 mg/dL) 8.5 Phosphorus (2.5 - 4.5 mg/dL) 4.0 Magnesium (1.6 - 2.3 mg/dL) 1.7 Total Bilirubin (0.2 - 1.3 mg/dL) 0.9 AST (17 - 59 U/L) 24 ALT (21 - 72 U/L) 23 Troponin I (<0.11 ng/ml) 0.02 Albumin (3.5 - 5.0 g/dL) 3.4 L Hematology CBC w Diff NO MAN DIFF REQ WBC (4.8 - 10.8 /CUMM) 4.9 RBC (4.70 - 6.10 /CUMM) 4.00 L Hgb (14.0 - 18.0 G/DL) 12.7 L Hct (42 - 52 %) 38.4 L MCV (80.0 - 94.0 FL) 96.0 H MCH (27.0 - 31.0 PG) 31.8 H MCHC (33.0 - 37.0 G/DL) 33.1 RDW (11.5 - 14.5 %) 15.7 H Plt Count (130 - 400 /CUMM) 170 MPV (7.4 - 10.4 FL) 9.9 Gran % (42.2 - 75.2 %) 75.6 H Lymphocytes % (20.5 - 51.1 %) 14.6 L Monocytes % (1.7 - 9.3 %) 8.4 Eosinophils % (0 - 5 %) 1.1 Basophils % (0.0 - 2.0 %) 0.3 Absolute Granulocytes (1.4 - 6.5 /CUMM) 3.7 Absolute Lymphocytes (1.2 - 3.4 /CUMM) 0.7 L Absolute Monocytes (0.10 - 0.60 /CUMM) 0.4 Absolute Eosinophils (0.0 - 0.7 /CUMM) 0.1 Absolute Basophils (0.0 - 0.2 /CUMM) 0 Miscellaneous Phlebotomy Draw Site LEFT RADIAL 01/27 01/27 1125 1107 Chemistry Troponin I Cancelled Urines Urine Color (YEL,AMB,STR) YEL Urine Clarity (CLEAR) CLEAR Urine pH (5.0 - 8.0) 6.0 Ur Specific Deport (1.001 - 1.035) >= 1.030 Urine Protein (NEG,<30 MG/DL) TRACE H Urine Ketones (NEG) NEG Urine Nitrite (NEG) NEG Urine Bilirubin (NEG) NEG Urine Urobilinogen (0.1 - 1.0 EU/dl) 1.0 Ur Leukocyte Esterase (NEG) NEG Ur Microscopic SEDIMENT EXAMINED Urine RBC (0 - 5 /HPF) 3-5 Ur Epithelial Cells (NONE,FEW) FEW Urine Bacteria (NEG/NONE) FEW H Hyaline Casts (0/LPF) 10-15 H Granular Casts (NONE /LPF) RARE H Urine Mucus (FEW,NONE) MOD H Urine Hemoglobin (NEG) SMALL H Urine Glucose (N MG/DL) NEG Assessment/Plan Assessment/Plan 82-year-old gentleman with a past medical history of coronary artery disease, status post prior bypass surgery, and ischemic cardiomyopathy with an LVEF of 30 to 35%, frequent unifocal PVCs, status post biventricular AICD (Dr. Wang), diabetes mellitus, persistent atrial fibrillation and hypertension. The patient underwent endoscopy, and his course was complicated by aspiration requiring intubation. While in the ICU, further management of his outpatient cardiac issues was questioned. Atrial fibrillation: The patient has persistent atrial fibrillation and demonstrates AV sequentially paced rhythm. We will interrogate the pacemaker to evaluate for potential atrial capture (unclear on a 12-lead EKG). The complex morphology change in comparison to previous EKG may represent loss of biventricular capture. We will again perform an AICD interrogation to evaluate this. A further evaluation of the patient's underlying electrolytes will be undertaken with correction if necessary. The patient had been on amiodarone chronically. There is no need to urgently start a drip at this time despite his n.p.o. status given the half-life of amiodarone. The patient has been on metoprolol regularly and therefore should be maintained on a beta-juan to avoid withdrawal tachycardia. Aspiration pneumonia: Continue treatment as per the ICU team Coronary artery disease: The patient has known coronary artery disease as well as post bypass surgery, with known graft occlusions. We will continue to treat medically, maintaining his beta-juan dosage as possible. Thank you for allowing us to participate in the care of your patient. Please do not hesitate to contact us further with any questions. Sincerely, Jalen Rueda MD [facility] Consult Acknowledgment - Thank you for your consult request.
[2018-01-27 16:00] VITALS: BP 140/74
[2018-01-27 18:52] LABS: PT 12.2 SEC (9.4-12.5)
[2018-01-28] VITALS: BP 88/60
[2018-01-28 02:34] LABS: PTT 78 SEC (25-37)
[2018-01-28 05:15] LABS: ABSOLUTE BASOPHIL COUNT 0 /CUMM (0.0-0.2); ABSOLUTE EOSINOPHIL COUNT 0 /CUMM (0.0-0.7); ABSOLUTE GRANULOCYTE CT 9.9 /CUMM (1.4-6.5); ABSOLUTE LYMPH COUNT 0.8 /CUMM (1.2-3.4); ABSOLUTE MONOCYTE COUNT 1.1 /CUMM (0.10-0.60); BASOPHIL % 0.1 % (0.0-2.0); EOSINOPHIL % 0.1 % (0-5); HEMATOCRIT 35.4 % (42-52); MEAN CORPUSCULAR HGB 31.7 PG (27.0-31.0); MEAN CORPUSCULAR HGB CONC 33.2 G/DL (33.0-37.0); MEAN CORPUSCULAR VOLUME 95.7 FL (80.0-94.0); MEAN PLATELET VOLUME 9.7 FL (7.4-10.4); PLATELET COUNT 151 /CUMM (130-400); RBC DISTRIBUTION WIDTH 15.7 % (11.5-14.5)
[2018-01-28 05:29] LABS: WHITE BLOOD CELL COUNT 11.8 /CUMM (4.8-10.8)
--- NOTE | 2018-01-28 07:24 | PN- Resident CRCU ---
Candace Mcintosh Mark Octavio 01/28/18 0724: Subjective HPI/CRCU Issues: Patient was hypotensive overnight, and was switched from Propofol to fentanyl with fluid bolus. Seen and examined at bedside. Sedated without agitation. Objective Vital Signs & I&O Last 8 Hrs of Vitals and I&O: Intake & Output 01/28 0800 Intake Total 1536 Output Total 158 Balance 1378 Intake, IV 1536 Number 2 Bowel Movements Output, 25 Gastric Drainage Output, Urine 133 Patient 107.133 kg Weight Weight Bed scale Measurement Method Exam General Appearance: no apparent distress, sedated, intubated Head: atraumatic, normal appearance Respiratory: chest non-tender, no respiratory distress, on vent, with mild rhonchi on the right mid-lung Cardiovascular: Paced rhythm, with possible PVC during auscultation Gastrointestinal: soft, non-tender, decreased BS Extremities: normal inspection, no edema Current Medications: Current Medications Sig/Franki Start time Last Medication Dose Route Stop Time Status Admin Albuterol Sulfate 3 ML Q4P PRN 01/27 1400 AC INH Ampicillin Sodium/ 1,500 MG Q6 01/27 1200 AC 01/28 Sulbactam Sodium IV 0557 Sodium Chloride 100 ML Chlorhexidine 1 GM .STK-MED ONE 01/27 1044 DC Gluconate TOP 01/27 1045 Fentanyl Citrate 1,000 MCG Q24H 01/28 0230 MT 01/28 Dextrose/Water 250 ML IV 0249 Heparin Sodium 25,000 UNIT Q24H 01/27 2000 AC 01/27 (Porcine) IV 1957 Sodium Chloride 500 ML Insulin Human Regular 0 Q6 01/27 1200 AC 01/28 SC 0602 Lorazepam 2 MG Q2 PRN 01/28 0545 IV Magnesium Sulfate 1 GM ONCE ONE 01/28 0145 MT 01/28 Dextrose/Water 100 ML IV 01/28 0544 0413 Metoclopramide HCl 10 MG Q8 01/27 2200 AC 01/28 IV 0556 Metoprolol Tartrate 5 MG Q6 01/27 1800 AC 01/27 IV 1810 Non-Formulary 0 SEE ADMIN CRITERIA 01/27 1100 CAN Medication ANY Pantoprazole Sodium 40 MG DAILY 01/27 1036 AC 01/27 IV 1226 Potassium Chloride 10 MEQ Q1H 01/28 0130 DC 01/28 IV 01/28 0231 0252 Propofol 1,000 MG Q24H 01/27 1100 DC 01/27 N/A 1 UNIT IV 1557 Propofol 1,000 MG .STK-MED ONE 01/27 1052 DC IV 01/27 1053 Sodium Chloride 250 ML BOLUS ONE 01/28 0530 DC 01/28 IV 01/28 0629 0540 Sodium Chloride 500 ML .Q1H 01/28 0130 DC 01/28 IV 01/28 0229 0130 Sodium Chloride 250 ML BOLUS ONE 01/27 2345 DC 01/27 IV 01/28 0044 2346 Sodium Chloride 250 ML BOLUS ONE 01/27 2115 DC 01/27 IV 01/27 2214 2105 Sodium Chloride 1,000 ML Q20H 01/27 1045 AC 01/28 IV 0557 Impression/Plan Impression/Problem List Impression: Patient is an 82-year-old male with multiple medical problem was under going upper GI endoscopy for worsening reflux symptoms and constipation over the past few months of uncertain etiology, complicated by aspiration needed intubation leading to admission to the ICU. Preprocedure vital signs-pulse 84, blood pressure 133/66, respiratory rate 16, temperature 97F, SPO2 98% on room air. He underwent endoscopy in the morning. During the procedure he began vomiting and became hypoxic to a point the scope was removed from the patient he was actually suctioned and given supplemental oxygen with an Ambu bag and was ultimately intubated. To protect the airway endotracheal intubation was done. After he continues to have gastric secretions from the nose, mouth, endotracheal intubation. It was planned to admit the patient in the ICU. Vital signs after the intubation pulse 60, blood pressure 96/68, SPO2 100%. Assessment and plan -patient is a 82-year-old male with multiple medical problem , underwent upper GI endoscopy secondary to worsening reflux symptoms and constipation to evaluate for GI obstruction. Upper GI endoscopy was complicated by vomiting needed intubation and ICU admission. Plan - Aspiration pneumonia secondary to upper GI endoscopy leading to gagging and vomiting - * Keep in ICU, currently off propofol, s/p fentanyl, on vent with FiO2 @ 40%, pending weaning off vent today * Patient had leukocytosis of 11.3 on latest AM lab, with 9 Bands, signs of infection likely 2/2 Aspiration PNA. * Continuous IV fluid normal saline 50 cc/h, had received a total of 750cc bolus overnight for hypoTN * Continue IV Unasyn 1.5 g IV every 6 * Continue IV pantoprazole 40 mg IV OD * Head end of the bed elevation * Strict intake output charting History of coronary artery disease, status post bypass, atrial fibrillation on Coumadin, biventricular ICD - * Appreciated cardiology consult * Discussed with Dr. Galvez advised for injection metoprolol 5 mg every 6. - Patient had HypoTN overnight, however continued on metoprolol IV. Will discuss with cardio pending switch PO if possible. - Pacemaker interrogation showed >99% paced since 12/2017. * Continue IV Heparin drip for A-fib for anticoagulation Type 2 diabetes - * Keep n.p.o. * Fingerstick every 6 hourly * NovolinR according to the sliding scale. CODE STATUS -full code, if patient's condition deteriorated please talk to Mr. Apple, on his cell number -[phone]. He is having living will, and will decide for further course including CODE STATUS. He wanted to be get updated about the management plan. DVT prophylaxis -ALPS Diet -n.p.o. Problem List: 1. Atrial fibrillation status post cardioversion 2. Pneumonia Pain Ratin Tomorrow's Labs & Rationales: ICU/CBC Plan DVT/Prophylaxis: mechanical, pharmacological Larry Taylor MD 01/28/18 0858: Attending MD Review Statement Attending Sign Off Attending Cosign Statement: I have: examined this patient, reviewed [facility] EMR data, personally reviewd images, discussd w/resident/PA/KLYSTROM TUBE TESTER, discussed mgmt plan w/emery, discussed mgmt plan w/CM, discussed mgmt plan w/pt, agreed w/resident/PA/KLYSTROM TUBE TESTER, amended to note. Other Findings: Impression 82 year old man * aspiration pneumonia/pneumonitis - acute hypoxemic respiratory failure requiring intubation Plan -CPAP trials -unasyn empirically -f/u GI recommendations -reduce sedation DVT prophylaxis at all times TTS 35 min
[2018-01-28 08:00] VITALS: BP 88/50
--- NOTE | 2018-01-28 08:19 | RADIOLOGY REPORT ---
EXAMINATION: XR PORTABLE CHEST CLINICAL INFORMATION: Endotracheal tube location. COMPARISON: 01/27/2018 TECHNIQUE: Portable frontal view of the chest was obtained. FINDINGS: The endotracheal tube is approximately 6 cm above the eva. No pneumothorax or pneumomediastinum. There appears to be an enteric tube; however, this tube is poorly visualized the position of its tip is uncertain. There appears to be peribronchial cuffing in the perihilar regions and lower lobes. Again noted is hazy and linear, streaky opacity in the left lower lobe. Surgical changes of prior coronary artery bypass grafting with intact sternotomy wires in place. The right atrial and biventricular pacing leads remain in their expected positions. IMPRESSION: 1. The endotracheal tube is in satisfactory position at 6 cm above the eva. 2. Persistent hazy and streaky opacity in left lower lobe. No new pulmonary abnormalities compared to 01/27/2018.
--- NOTE | 2018-01-28 10:44 | PN- Cardiology ---
Subjective Subjective: Remains intubated but is awake and following commands. Objective Vital Signs and I&Os Vital Signs Date Time Temp Pulse Resp B/P B/P Pulse O2 O2 Flow FiO2 Mean Ox Delivery Rate 01/28 0800 98.5 59 19 88/50 93 Ventilator 40% 01/28 0800 93 Ventilator 40% 01/28 0742 40 01/28 0612 40 01/28 0557 60 16 82/41 01/28 0400 95 Ventilator 40% 01/28 0336 40 01/28 0055 40 01/28 0010 97.9 61 20 88/60 01/28 0000 95 Ventilator 40% 01/28 0000 97.8 61 20 88/60 95 Ventilator 40% 01/27 2223 40 01/27 2000 97 Ventilator 50% 01/27 1947 40 01/27 1810 66 110/54 01/27 1625 50 01/27 1600 97.4 68 17 140/74 97 Ventilator 50% 01/27 1600 97 Ventilator 50% 01/27 1403 50 01/27 1336 Ventilator 50% 01/27 1200 96 Ventilator 60% 01/27 1110 100 01/27 1100 96.6 69 17 128/64 98 Ventilator 100% Intake & Output 01/28 1600 01/28 0800 01/28 0000 01/27 1600 01/27 0800 01/27 0000 Intake Total 1536 771.5 386 Output Total 158 200 375 Balance 1378 571.5 11 Intake, IV 1536 771.5 386 Intake, Oral 0 Number 2 1 Bowel Movements Output, 25 100 Gastric Drainage Output, Urine 133 200 275 Patient 236 lb 237 lb Weight Weight Bed scale Bed scale Measurement Method Physical Exam: General: no apparent distress. Intubated. Alert Eyes: No obvious scleral icterus. HEENT: No jugular venous distention or abnormal jugular venous pulsations. Cardiovascular: Normal intensity S1/S2. Regular, pacemaker noted Respiratory: No rales or rhonchi Abdomen: Soft, nontender with no guarding or rebound tenderness. Musculoskeletal: No clubbing or cyanosis noted to be: No edema Skin: warm Neurologic: Alert Lymph: No gross lymphadenopathy. Current Medications: Current Medications Sig/Franki Start time Last Medication Dose Route Stop Time Status Admin Albuterol Sulfate 3 ML Q4P PRN 01/27 1400 AC INH Ampicillin Sodium/ 1,500 MG Q6 01/27 1200 AC 01/28 Sulbactam Sodium IV 0557 Sodium Chloride 100 ML Chlorhexidine 1 GM .STK-MED ONE 01/27 1044 DC Gluconate TOP 01/27 1045 Fentanyl Citrate 1,000 MCG Q24H 01/28 0230 DC 01/28 Dextrose/Water 250 ML IV 0249 Heparin Sodium 25,000 UNIT Q24H 01/27 2000 AC 01/27 (Porcine) IV 1957 Sodium Chloride 500 ML Insulin Human Regular 1 UNITS .STK-MED ONE 01/28 0005 DC IV 01/28 0006 Insulin Human Regular 0 Q6 01/27 1200 AC 01/28 SC 0602 Lorazepam 2 MG Q2 PRN 01/28 0545 IV Magnesium Sulfate 1 GM ONCE ONE 01/28 0145 DC 01/28 Dextrose/Water 100 ML IV 01/28 0544 0413 Metoclopramide HCl 10 MG Q8 01/27 2200 AC 01/28 IV 0556 Metoprolol Tartrate 5 MG Q6 01/27 1800 AC 01/27 IV 1810 Non-Formulary 0 SEE ADMIN CRITERIA 01/27 1100 CAN Medication ANY Pantoprazole Sodium 40 MG DAILY 01/27 1036 AC 01/28 IV 0800 Potassium Chloride 10 MEQ Q1H 01/28 0130 DC 01/28 IV 01/28 0231 0252 Propofol 1,000 MG Q24H 01/27 1100 DC 01/27 N/A 1 UNIT IV 1557 Propofol 1,000 MG .STK-MED ONE 01/27 1052 DC IV 01/27 1053 Sodium Chloride 250 ML BOLUS ONE 01/28 0530 DC 01/28 IV 01/28 0629 0540 Sodium Chloride 500 ML .Q1H 01/28 0130 DC 01/28 IV 01/28 0229 0130 Sodium Chloride 250 ML BOLUS ONE 01/27 2345 DC 01/27 IV 01/28 0044 2346 Sodium Chloride 250 ML BOLUS ONE 01/27 2115 DC 01/27 IV 01/27 2214 2105 Sodium Chloride 1,000 ML Q20H 01/27 1045 AC 01/28 IV 0557 Results Last 48 Hrs of Labs/Mics: Laboratory Tests 01/28/18 0505: pH 7.43, pCO2 35, pO2 87, HCO3 23, ABG O2 Sat (Measured) 96.0, P-50 (Temp Corrected) Y, Carboxyhemoglobin 0.4 L, O2 Concentration % 40%, Temperature 98.0 , Respiration Rate 16, O2 Delivery Method ESPRIT, Vent Mode AC, Expiratory Pressure 5, Tidal Volume 550, Phlebotomy Draw Site RIGHT BRACHIAL 01/28/18 0450: Lta-K-Juvokgmxjna Pept 2900 H 01/28/18 0450: Anion Gap 11, Estimated GFR 53 L, Glucose 145 H, Calcium 7.7 L, Phosphorus 4.6 H, Magnesium 1.6, Total Bilirubin 0.8, AST 20, ALT 26, Albumin 2.7 L, CBC w Diff MAN DIFF ORDERED, RBC 3.70 L, MCV 95.7 H, MCH 31.7 H, MCHC 33.2, RDW 15.7 H, MPV 9.7, Gran % 84.0 H, Lymphocytes % 6.6 L, Monocytes % 9.2, Eosinophils % 0.1, Basophils % 0.1, Absolute Granulocytes 9.9 H, Segmented Neutrophils 76 H, Band Neutrophils 9 H, Absolute Lymphocytes 0.8 L, Lymphocytes 7 L, Monocytes 8, Absolute Monocytes 1.1 H, Absolute Eosinophils 0 , Absolute Basophils 0, Platelet Estimate ADEQUATE, Polychromasia 1+, Basophilic Stippling 1+, Ovalocytes FEW, Fld Total RBCs Counted 100 01/28/18 0157: APTT 78 H 01/27/18 2350: Anion Gap 10, Estimated GFR 58 L, Glucose 150 H, Calcium 7.8 L, Phosphorus 3.7, Magnesium 1.4 L, Total Bilirubin 0.8, AST 22, ALT 23, Albumin 2.8 L 01/27/18 1825: PT 12.2, INR 1.12 01/27/18 1210: pH 7.41, pCO2 40, pO2 314 H, HCO3 25, ABG O2 Sat (Measured) 98.0, P-50 (Temp Corrected) Y, Carboxyhemoglobin 1.6, O2 Concentration % 100%, Temperature 96.6 L, Respiration Rate 16, O2 Delivery Method VENT, Vent Mode VC-AC, Expiratory Pressure 5, Tidal Volume 550, Phlebotomy Draw Site LEFT RADIAL 01/27/18 1145: Anion Gap 9, Estimated GFR > 60, Glucose 166 H, Calcium 8.5, Phosphorus 4.0, Magnesium 1.7, Total Bilirubin 0.9, AST 24, ALT 23, Troponin I 0.02, Albumin 3.4 L, CBC w Diff NO MAN DIFF REQ, RBC 4.00 L, MCV 96.0 H, MCH 31.8 H, MCHC 33.1 , RDW 15.7 H, MPV 9.9, Gran % 75.6 H, Lymphocytes % 14.6 L, Monocytes % 8.4, Eosinophils % 1.1, Basophils % 0.3, Absolute Granulocytes 3.7, Absolute Lymphocytes 0.7 L, Absolute Monocytes 0.4, Absolute Eosinophils 0.1, Absolute Basophils 0 01/27/18 1125: Urine Color YEL, Urine Clarity CLEAR, Urine pH 6.0, Ur Specific Brogan >= 1.030 , Urine Protein TRACE H, Urine Ketones NEG, Urine Nitrite NEG, Urine Bilirubin NEG, Urine Urobilinogen 1.0, Ur Leukocyte Esterase NEG, Ur Microscopic SEDIMENT EXAMINED, Urine RBC 3-5, Ur Epithelial Cells FEW, Urine Bacteria FEW H, Hyaline Casts 10-15 H, Granular Casts RARE H, Urine Mucus MOD H, Urine Hemoglobin SMALL H, Urine Glucose NEG 01/27/18 1107: Troponin I Cancelled Recent Imaging Studies: Telemetry tracings were personally reviewed and show paced rhythm cxr: 1. The endotracheal tube is in satisfactory position at 6 cm above the eva. 2. Persistent hazy and streaky opacity in left lower lobe. No new pulmonary abnormalities compared to 01/27/2018. Pacemaker interrogation shows primarily atrial sensed ventricular paced rhythm Assessment/Plan Assessment/Plan 1. EGD complicated by aspiration requiring intubation 2. History of ischemic cardiomyopathy with decreased ejection fraction 3. History of coronary artery disease with prior bypass and known graft occlusions 4. History of biventricular AICD and PVCs 5. History of atrial fibrillation on Coumadin 6. History of hypertension 7. History of diabetes Patient remains intubated but is alert and following commands. ICD interrogation shows overall normal device function primarily with atrial sensing and ventricular pacing. Ventilator weaning per the critical care team. Resume Coumadin when able. Would hold off on any further IV Lopressor while blood pressure is borderline. Antibiotics per critical care team. Familia Daniel MD [facility] Continue telemetry? Yes
[2018-01-28 16:00] VITALS: BP 112/72
--- NOTE | 2018-01-28 17:17 | RADIOLOGY REPORT ---
EXAMINATION: XR PORTABLE CHEST CLINICAL INFORMATION: Worsening dyspnea. COMPARISON: Chest x-ray 01/28/2018 . 6:36 AM. TECHNIQUE: Portable frontal view of the chest was obtained. 4:06 PM FINDINGS: The endotracheal tube has been removed since the prior chest x-ray this a.m. Status post median sternotomy. Pacemaker lead in right atrium and right ventricle and coronary sinus are in unchanged positions since prior study. The central hilar vascularity is mildly prominent and remains unchanged since the prior chest x-ray today. No focal dense consolidation. No pleural effusion or pneumothorax. IMPRESSION: Persistent mild central pulmonary vascular congestion. Status post post extubation.
[2018-01-28 19:44] VITALS: BP 132/68
[2018-01-28 21:14] LABS: PTT 59 SEC (25-37)
[2018-01-29] VITALS: BP 130/60
[2018-01-29 05:05] LABS: ABSOLUTE BASOPHIL COUNT 0 /CUMM (0.0-0.2); ABSOLUTE EOSINOPHIL COUNT 0 /CUMM (0.0-0.7); ABSOLUTE GRANULOCYTE CT 8.9 /CUMM (1.4-6.5); ABSOLUTE LYMPH COUNT 0.8 /CUMM (1.2-3.4); ABSOLUTE MONOCYTE COUNT 1.3 /CUMM (0.10-0.60); BASOPHIL % 0.1 % (0.0-2.0); EOSINOPHIL % 0.1 % (0-5); GRANULOCYTE % 80.8 % (42.2-75.2); HEMATOCRIT 38.4 % (42-52); MEAN CORPUSCULAR HGB 31.7 PG (27.0-31.0); MEAN CORPUSCULAR HGB CONC 33.5 G/DL (33.0-37.0); MEAN CORPUSCULAR VOLUME 94.8 FL (80.0-94.0); MEAN PLATELET VOLUME 10.1 FL (7.4-10.4); PLATELET COUNT 156 /CUMM (130-400); RBC DISTRIBUTION WIDTH 15.8 % (11.5-14.5); RED BLOOD CELL CT 4.05 /CUMM (4.70-6.10); WHITE BLOOD CELL COUNT 11.1 /CUMM (4.8-10.8)
[2018-01-29 05:13] LABS: PTT 76 SEC (25-37)
[2018-01-29 08:00] VITALS: BP 132/56
--- NOTE | 2018-01-29 08:21 | RADIOLOGY REPORT ---
EXAMINATION: XR PORTABLE CHEST CLINICAL INFORMATION: Worsening shortness of breath. Evaluate fluid overload. COMPARISON: 01/28/2018 TECHNIQUE: Portable frontal view of the chest was obtained. FINDINGS: Lungs are hypoinflated. Again noted is the left pectoral region cardiac pulse generator and the right atrial and biventricular leads. Cardiac silhouette is mildly enlarged. Pulmonary vessels are congested. There are increased hazy opacities in the perihilar regions. Findings are suggestive of mild, central edema. No pleural effusion, pneumothorax or other significant interval change. IMPRESSION: - Lungs are hypoinflated. - Pulmonary vascular congestion and apparent mild perihilar edema.
--- NOTE | 2018-01-29 08:35 | PN- Resident CRCU ---
Candace Mcintosh Mark Mauriceie 01/29/18 0829: Subjective HPI/CRCU Issues: No overnight event. Patient was maintained on 4LNC s/p extubation. Objective Vital Signs & I&O Last 8 Hrs of Vitals and I&O: Intake & Output 01/29 1600 01/29 0800 01/29 0000 Intake Total 571 356 Output Total 1300 2615 Balance -729 -0599 Intake, IV 571 356 Number 0 1 Bowel Movements Output, Urine 1300 2615 Patient 106.339 kg Weight Weight Bed scale Measurement Method Exam General Appearance: no apparent distress, alert, awake Head: atraumatic, normal appearance Respiratory: chest non-tender, no respiratory distress, on 4LNC, BL lungs rhonchi Cardiovascular: regular rate/rhythm Gastrointestinal: normal bowel sounds, soft, non-tender Weaning Parameters NIF: 25 Minute Volume: 7.3 Resp rate: 28 Vt: 387 Heart Rate: 65 Weaning Schedule Start Time: 0925 Minute Volume: 7.3 Resp Rate: 28 Vt: 387 Heart Rate: 65 End Time: 1040 Minute Volume: 8.9 Resp Rate: 27 Vt: 450 Heart Rate: 60 Current Medications: Current Medications Sig/Franki Start time Last Medication Dose Route Stop Time Status Admin Albuterol Sulfate 3 ML EVERY 4 HRS/AWAKE 01/29 0800 AC 01/29 INH 0821 Albuterol Sulfate 3 ML BID 01/28 2100 DC 01/28 INH 1110 Albuterol Sulfate 3 ML Q4P PRN 01/27 1400 AC INH Amiodarone HCl 200 MG BID 01/28 1422 AC 01/29 PO 0810 Ampicillin Sodium/ 1,500 MG Q6 01/27 1200 AC 01/29 Sulbactam Sodium IV 0619 Sodium Chloride 100 ML Aspirin Buffered 81 MG DAILY 01/28 1422 AC 01/29 PO 0810 Carbidopa/Levodopa 1 TAB BID 01/28 1422 AC 01/29 PO 0810 Finasteride 5 MG DAILY 01/28 1423 AC 01/28 PO 1700 Furosemide 20 MG ONCE ONE 01/28 2315 DC 01/28 IV 01/28 2316 2335 Furosemide 20 MG ONCE ONE 01/28 1545 DC 01/28 IV 01/28 1546 1550 Furosemide 20 MG ONCE ONE 01/28 1515 DC 01/28 IV 01/28 1516 1516 Heparin Sodium 25,000 UNIT Q24H 01/27 2000 AC 01/28 (Porcine) IV 2207 Sodium Chloride 500 ML Insulin Human Regular 1 UNITS .STK-MED ONE 01/28 2353 DC IV 01/28 2354 Insulin Human Regular 2 UNITS .STK-MED ONE 01/28 1709 DC IV 01/28 1710 Insulin Human Regular 2 UNITS .STK-MED ONE 01/28 1143 DC IV 01/28 1144 Insulin Human Regular 0 Q6 01/27 1200 AC 01/29 SC 0620 Lorazepam 2 MG .STK-MED ONE 01/28 1628 DC IV 01/28 1629 Lorazepam 2 MG Q2 PRN 01/28 0545 AC IV Magnesium Sulfate 1 GM .STK-MED ONE 01/28 1628 DC IV 01/28 1629 Metoclopramide HCl 10 MG Q8 01/27 2200 AC 01/29 IV 0620 Metoprolol Tartrate 5 MG Q6 01/27 1800 DC 01/27 IV 1810 Pantoprazole Sodium 40 MG DAILY 01/27 1036 AC 01/29 IV 0810 Phenol 2 SPRAY Q2P PRN 01/28 1115 AC 01/28 EXT 1212 Potassium Chloride 10 MEQ ONCE ONE 01/29 0145 DC 01/29 IV 01/29 0146 0319 Potassium Chloride 10 MEQ ONCE ONE 01/29 0145 DC 01/29 IV 01/29 0146 0144 Sodium Chloride 1,000 ML Q20H 01/27 1045 AR 01/28 IV 0557 Tamsulosin HCl 0.4 MG DAILY 01/29 0900 AC PO Warfarin Sodium 3 MG COUMADIN 1700 ONE 01/28 1700 DC 01/28 PO 01/28 1701 1701 Impression/Plan Impression/Problem List Impression: Patient is an 82-year-old male with multiple medical problem was under going upper GI endoscopy for worsening reflux symptoms and constipation over the past few months of uncertain etiology, complicated by aspiration needed intubation leading to admission to the ICU. Preprocedure vital signs-pulse 84, blood pressure 133/66, respiratory rate 16, temperature 97F, SPO2 98% on room air. He underwent endoscopy in the morning. During the procedure he began vomiting and became hypoxic to a point the scope was removed from the patient he was actually suctioned and given supplemental oxygen with an Ambu bag and was ultimately intubated. To protect the airway endotracheal intubation was done. After he continues to have gastric secretions from the nose, mouth, endotracheal intubation. It was planned to admit the patient in the ICU. Vital signs after the intubation pulse 60, blood pressure 96/68, SPO2 100%. Assessment and plan -patient is a 82-year-old male with multiple medical problem , underwent upper GI endoscopy secondary to worsening reflux symptoms and constipation to evaluate for GI obstruction. Upper GI endoscopy was complicated by vomiting needed intubation and ICU admission. Plan - Aspiration pneumonia secondary to upper GI endoscopy leading to gagging and vomiting - * Currently off propofol, s/p fentanyl, s/p extubation, AO x 3 and on 4LNC. * Patient had leukocytosis resolved to 11.1 on latest AM lab, with no more Bands. His signs of infection likely 2/2 Aspiration PNA. * DCed on IVF due to pulm congestion, received 2x Lasix 20mg IV for diuresis overnight. * Continue IV Unasyn 1.5 g IV every 6 * Continue IV pantoprazole 40 mg IV QD * Head end of the bed elevation * Strict intake output charting History of coronary artery disease, status post bypass, atrial fibrillation on Coumadin, biventricular ICD - * Appreciated cardiology consult, now off metoprolol IV and started on Amiodarone 200mg BID as patient had been allowed to take meds however still keep NPO pending swallow eval. * Pacemaker interrogation showed >99% paced since 12/2017. * Continue IV Heparin drip for A-fib for anticoagulation. Type 2 diabetes - * Keep n.p.o. * Fingerstick every 6 hourly * NovolinR according to the sliding scale. CODE STATUS -full code, if patient's condition deteriorated please talk to Mr. Apple, on his cell number -[phone]. He is having living will, and will decide for further course including CODE STATUS. He wanted to be get updated about the management plan. DVT prophylaxis - Heparin drip on + ALPS Diet -n.p.o. pending swallow re-eval Problem List: 1. Aspiration pneumonia Pain Ratin Tomorrow's Labs & Rationales: ICU/CBC Plan DVT/Prophylaxis: mechanical, pharmacological Larry Taylor MD 01/29/18 0850: Attending MD Review Statement Attending Sign Off Attending Cosign Statement: I have: examined this patient, reviewed aval EMR data, personally reviewd images, discussd w/resident/PA/SHOE LASTER, discussed mgmt plan w/emery, discussed mgmt plan w/CM, discussed mgmt plan w/pt, agreed w/resident/PA/SHOE LASTER, amended to note. Other Findings: Impression 82 year old man * aspiration pneumonia/pneumonitis - acute hypoxemic respiratory failure requiring intubation Plan -extubated -unasyn empirically -f/u GI recommendations DVT prophylaxis at all times TTS 35 min DG to floors
--- NOTE | 2018-01-29 09:29 | PN- Cardiology ---
Subjective Subjective: Patient appears alert oriented denies chest pain or significant shortness of breath. Telemetry reveals sinus rhythm. Objective Vital Signs and I&Os Vital Signs Date Time Temp Pulse Resp B/P B/P Pulse O2 O2 Flow FiO2 Mean Ox Delivery Rate 01/29 0846 93 Nasal 3.0L Cannula 01/29 0810 80 132/56 01/29 0400 96 Nasal 4.0L Cannula 01/29 0022 92 Venti Mask 45% 01/29 0000 92 Nasal 4.0L Cannula 01/29 0000 96.7 79 28 130/60 92 Nasal 4.0L Cannula 01/28 1956 93 Nasal 3.0L Cannula 01/28 1944 98.8 86 20 132/68 93 Nasal 3.0L Cannula 01/28 1701 91 146/75 01/28 1625 98 Nasal 4.0L Cannula 01/28 1600 97.6 87 23 112/72 96 Nasal 4.0L Cannula 01/28 1600 96 Nasal 4.0L Cannula 01/28 1200 95 Nasal 4.0L Cannula 01/28 1147 71 98/43 01/28 1114 95 Nasal 4.0L Cannula Intake & Output 01/29 1600 01/29 0800 01/29 0000 01/28 1600 01/28 0800 01/28 0000 Intake Total 571 476 135 2092 771.5 Output Total 1300 2615 375 158 200 Balance -729 -2259 573 1378 571.5 Intake, IV 571 297 864 9077 771.5 Intake, Oral 0 Number 0 1 2 1 Bowel Movements Output, 25 Gastric Drainage Output, Urine 1300 2615 375 133 200 Patient 234 lb 236 lb Weight Weight Bed scale Bed scale Measurement Method Physical Exam: On general exam patient appeared comfortable. Head normocephalic atraumatic Eyes sclera anicteric conjunctiva showed no pallor extraocular muscles were normal Neck no jugular venous distention no thyroid masses no palpable nodes Chest lungs were clear except for basilar crackles Heart regular rhythm with PVCs 1/6 systolic murmur Abdomen protuberant bowel sounds normal Extremities varicosities bilaterally no edema Neurological no gross motor or sensory deficit Current Medications: Current Medications Sig/Franki Start time Last Medication Dose Route Stop Time Status Admin Albuterol Sulfate 3 ML EVERY 4 HRS/AWAKE 01/29 0800 AC 01/29 INH 0821 Albuterol Sulfate 3 ML BID 01/28 2100 DC 01/28 INH 1110 Albuterol Sulfate 3 ML Q4P PRN 01/27 1400 AC INH Amiodarone HCl 200 MG BID 01/28 1422 AC 01/29 PO 0810 Ampicillin Sodium/ 1,500 MG Q6 01/27 1200 AC 01/29 Sulbactam Sodium IV 0619 Sodium Chloride 100 ML Aspirin Buffered 81 MG DAILY 01/28 1422 AC 01/29 PO 0810 Carbidopa/Levodopa 1 TAB BID 01/28 1422 AC 01/29 PO 0810 Finasteride 5 MG DAILY 01/28 1423 AC 01/28 PO 1700 Furosemide 40 MG DAILY 01/29 0907 AC PO Furosemide 20 MG ONCE ONE 01/28 2315 DC 01/28 IV 01/28 2316 2335 Furosemide 20 MG ONCE ONE 01/28 1545 DC 01/28 IV 01/28 1546 1550 Furosemide 20 MG ONCE ONE 01/28 1515 DC 01/28 IV 01/28 1516 1516 Heparin Sodium 25,000 UNIT Q24H 01/27 2000 AC 01/28 (Porcine) IV 2207 Sodium Chloride 500 ML Insulin Human Regular 1 UNITS .STK-MED ONE 01/28 2353 DC IV 01/28 2354 Insulin Human Regular 2 UNITS .STK-MED ONE 01/28 1709 DC IV 01/28 1710 Insulin Human Regular 2 UNITS .STK-MED ONE 01/28 1143 DC IV 01/28 1144 Insulin Human Regular 0 Q6 01/27 1200 AC 01/29 SC 0620 Lorazepam 2 MG .STK-MED ONE 01/28 1628 DC IV 01/28 1629 Lorazepam 2 MG Q2 PRN 01/28 0545 IV Magnesium Sulfate 1 GM .STK-MED ONE 01/28 1628 DC IV 01/28 1629 Metoclopramide HCl 10 MG Q8 01/27 2200 AC 01/29 IV 0620 Metoprolol Tartrate 5 MG Q6 01/27 1800 DC 01/27 IV 1810 Pantoprazole Sodium 40 MG DAILY 01/27 1036 AC 01/29 IV 0810 Phenol 2 SPRAY Q2P PRN 01/28 1115 AC 01/28 EXT 1212 Potassium Chloride 10 MEQ ONCE ONE 01/29 0145 DC 01/29 IV 01/29 0146 0319 Potassium Chloride 10 MEQ ONCE ONE 01/29 0145 DC 01/29 IV 01/29 0146 0144 Sodium Chloride 1,000 ML Q20H 01/27 1045 DC 01/28 IV 0557 Tamsulosin HCl 0.4 MG DAILY 01/29 0900 AC PO Warfarin Sodium 3 MG COUMADIN 1700 ONE 01/28 1700 DC 01/28 PO 01/28 1701 1701 Results Last 48 Hrs of Labs/Mics: Laboratory Tests 01/29/18 0415: PT 12.0, INR 1.10 01/29/18 0415: Anion Gap 11, Estimated GFR > 60, Glucose 135 H, Calcium 8.1 L, Phosphorus 4.0 , Magnesium 1.5 L, Total Bilirubin 0.9, AST 27, ALT 25, Albumin 3.1 L, APTT 76 H, CBC w Diff NO MAN DIFF REQ, RBC 4.05 L, MCV 94.8 H, MCH 31.7 H, MCHC 33.5 , RDW 15.8 H, MPV 10.1, Gran % 80.8 H, Lymphocytes % 6.9 L, Monocytes % 12.1 H, Eosinophils % 0.1, Basophils % 0.1, Absolute Granulocytes 8.9 H, Absolute Lymphocytes 0.8 L, Absolute Monocytes 1.3 H, Absolute Eosinophils 0, Absolute Basophils 0 01/28/18 2340: Anion Gap 12, Estimated GFR > 60, BUN/Creatinine Ratio 18.2 01/28/182023: APTT 59 H 01/28/18 1400: PT Cancelled, INR Cancelled 01/28/18 0505: pH 7.43, pCO2 35, pO2 87, HCO3 23, ABG O2 Sat (Measured) 96.0, P-50 (Temp Corrected) Y, Carboxyhemoglobin 0.4 L, O2 Concentration % 40%, Temperature 98.0 , Respiration Rate 16, O2 Delivery Method ESPRIT, Vent Mode AC, Expiratory Pressure 5, Tidal Volume 550, Phlebotomy Draw Site RIGHT BRACHIAL 01/28/18 0450: Cko-H-Upaerbzjcza Pept 2900 H 01/28/18 0450: Anion Gap 11, Estimated GFR 53 L, Glucose 145 H, Calcium 7.7 L, Phosphorus 4.6 H, Magnesium 1.6, Total Bilirubin 0.8, AST 20, ALT 26, Albumin 2.7 L, CBC w Diff MAN DIFF ORDERED, RBC 3.70 L, MCV 95.7 H, MCH 31.7 H, MCHC 33.2, RDW 15.7 H, MPV 9.7, Gran % 84.0 H, Lymphocytes % 6.6 L, Monocytes % 9.2, Eosinophils % 0.1, Basophils % 0.1, Absolute Granulocytes 9.9 H, Segmented Neutrophils 76 H, Band Neutrophils 9 H, Absolute Lymphocytes 0.8 L, Lymphocytes 7 L, Monocytes 8, Absolute Monocytes 1.1 H, Absolute Eosinophils 0 , Absolute Basophils 0, Platelet Estimate ADEQUATE, Polychromasia 1+, Basophilic Stippling 1+, Ovalocytes FEW, Fld Total RBCs Counted 100 01/28/18 0157: APTT 78 H 01/27/18 2350: Anion Gap 10, Estimated GFR 58 L, Glucose 150 H, Calcium 7.8 L, Phosphorus 3.7, Magnesium 1.4 L, Total Bilirubin 0.8, AST 22, ALT 23, Albumin 2.8 L 01/27/18 1825: PT 12.2, INR 1.12 01/27/18 1210: pH 7.41, pCO2 40, pO2 314 H, HCO3 25, ABG O2 Sat (Measured) 98.0, P-50 (Temp Corrected) Y, Carboxyhemoglobin 1.6, O2 Concentration % 100%, Temperature 96.6 L, Respiration Rate 16, O2 Delivery Method VENT, Vent Mode VC-AC, Expiratory Pressure 5, Tidal Volume 550, Phlebotomy Draw Site LEFT RADIAL 01/27/18 1145: Anion Gap 9, Estimated GFR > 60, Glucose 166 H, Calcium 8.5, Phosphorus 4.0, Magnesium 1.7, Total Bilirubin 0.9, AST 24, ALT 23, Troponin I 0.02, Albumin 3.4 L, CBC w Diff NO MAN DIFF REQ, RBC 4.00 L, MCV 96.0 H, MCH 31.8 H, MCHC 33.1 , RDW 15.7 H, MPV 9.9, Gran % 75.6 H, Lymphocytes % 14.6 L, Monocytes % 8.4, Eosinophils % 1.1, Basophils % 0.3, Absolute Granulocytes 3.7, Absolute Lymphocytes 0.7 L, Absolute Monocytes 0.4, Absolute Eosinophils 0.1, Absolute Basophils 0 01/27/18 1125: Urine Color YEL, Urine Clarity CLEAR, Urine pH 6.0, Ur Specific [place] >= 1.030 , Urine Protein TRACE H, Urine Ketones NEG, Urine Nitrite NEG, Urine Bilirubin NEG, Urine Urobilinogen 1.0, Ur Leukocyte Esterase NEG, Ur Microscopic SEDIMENT EXAMINED, Urine RBC 3-5, Ur Epithelial Cells FEW, Urine Bacteria FEW H, Hyaline Casts 10-15 H, Granular Casts RARE H, Urine Mucus MOD H, Urine Hemoglobin SMALL H, Urine Glucose NEG 01/27/18 1107: Troponin I Cancelled Microbiology 01/27 1111 LOWER RESP: Respiratory Culture - COMP ESCHERICHIA COLI PSEUDOMONAS AERUGINOSA 01/27 1111 LOWER RESP: Gram Stain - COMP 01/27 1110 UPPER RESP: Surveillance Culture - COMP 01/27 1110 GI: Surveillance Culture - COMP Recent Imaging Studies: Chest x-ray- Lungs are hypoinflated. - Pulmonary vascular congestion and apparent mild perihilar edema. Assessment/Plan Assessment/Plan In summary this 82-year-old gentleman has a following problems 1. EGD complicated by aspiration requiring intubation 2. History of ischemic cardiomyopathy with decreased ejection fraction 3. History of coronary artery disease with prior bypass and known graft occlusions 4. History of biventricular AICD and PVCs 5. History of atrial fibrillation on Coumadin 6. History of hypertension 7. History of diabetes 8. Congestive heart failure probably from aggressive volume resuscitation. I would decrease his amiodarone to 200 mg once a day. I would continue IV Lasix 20 mg this morning and in p.m. and start oral Lasix tomorrow 40 mg a day. Follow oxygen saturations. X-ray. Patient is being transitioned to warfarin. Continue telemetry? Yes
--- NOTE | 2018-01-29 11:07 | Transfer of Care Summary ---
Hospital Course Course Hospital Course: Reason for ICU admission: Aspiration PNA needing Intubation HPI: Patient is an 82-year-old male with multiple medical problem was under going upper GI endoscopy for worsening reflux symptoms and constipation over the past few months of uncertain etiology, complicated by aspiration needed intubation leading to admission to the ICU. Preprocedure vital signs-pulse 84, blood pressure 133/66, respiratory rate 16, temperature 97F, SPO2 98% on room air. He underwent endoscopy in the morning. During the procedure he began vomiting and became hypoxic to a point the scope was removed from the patient he was actually suctioned and given supplemental oxygen with an Ambu bag and was ultimately intubated. To protect the airway endotracheal intubation was done. After he continues to have gastric secretions from the nose, mouth, endotracheal intubation. It was planned to admit the patient in the ICU. Vital signs after the intubation pulse 60, blood pressure 96/68, SPO2 100%. Assessment and plan -patient is a 82-year-old male with multiple medical problem , underwent upper GI endoscopy secondary to worsening reflux symptoms and constipation to evaluate for GI obstruction. Upper GI endoscopy was complicated by vomiting needed intubation and ICU admission. ICU course: Aspiration pneumonia secondary to upper GI endoscopy leading to gagging and vomiting - Upon admission, patient was intubated, start IV fluid normal saline 50 cc/h, with Unasyn 1.5 g IV every 6 hours, and IV PPI 40 mg daily, with strict input output charting and had and bed elevation. She was initially on propofol, however became hypotensive overnight, and tapered down on propofol and started on fentanyl for sedation, and on 01/28, patient was weaning down fentanyl, and successfully extubated without complications. Currently patient is breathing comfortably on the 4 L nasal cannula, was above 92% O2 saturation. Patient likely had aspiration pneumonia, was leukocytosis currently resolved to 11.1 on the this AM lab was normal bandemia's. Microbiology is growing gram-negative rods, however pending final cultures. Patient will discontinue IVF due to pulmonary congestion onset likely around 01/28, and 2 doses of IV Lasix were given and patient was called up on fluid balance with adequate amount of [place] output of urine. Cardiology recommend to restart amiodarone however decreased dose to 200 mg daily, and continue IV Lasix 20 mg for 01/28 a.m. and p.m., and start oral Lasix 40 mg daily on 01/30. At this point, patient is pending for modified barium swallow eval. History of coronary artery disease, status post bypass, atrial fibrillation on Coumadin, biventricular ICD - Cardiology was consulted for patient's AICD interrogation, which showed mostly normal function primarily with atrial sensing and ventricular pacing. Patient was maintained with IV metoprolol due to aspiration risk to avoid withdrawal tachycardia, however during the first night of ICU, patient became hypotensive and metoprolol was helped to prevent hypotension. As patient advance on swallow function and extubated, patient was started on amiodarone as above, and resume gradually on Lasix. Patient was continue IV heparin drip for A. fib for anticoagulation, and should be bridging to warfarin per cardiology recommendations. Type 2 diabetes - Patient was kept n.p.o. due to aspiration risk, pending modified barium swallow eval. Patient was remained on Accu-Chek every 6 hours and lower limb sliding scale. CODE STATUS -full code, if patient's condition deteriorated please talk to Mr. Apple, on his cell number -[phone]. He is having living will, and will decide for further course including CODE STATUS. He wanted to be get updated about the management plan. DVT prophylaxis - Heparin drip on + ALPS Diet -n.p.o. pending swallow re-eval Mechanical ventilation: Yes, extubated on 01/28. Now on 4LNC NIPPV: No Antibiotics plan: Unasyn 1.5g IV q6 day 3 Catheters/ Lines plan: [place], pending remove tomorrow Things to be followed up in the floor: - Modified Barium swallow on 01/29, and advance diet if passed - Remove [place] 01/30 - Bridge to warfarin/NOAC per cardio - Restart PO Lasix 40mg qd per cardio - IV to PO ABx - IV to PO PPI - f/u pathology results Significant Procedures: Medical History: unchanged (see lavon ov note 01/08/18) Mental Status: alert/oriented Heart/Lung Eval Prior to Sedation: within normal limits Candidate for Sedation? Yes Procedure Date: 01/27/18 Procedure Type: EGD w/biopsy Practice Management Consultant: Napoleon Cloud MD ASA Classification: III Indications: Nausea and vomiting in a patient with a history of peptic ulcer disease status post [place]ro[place] I anastomosis. Gastric emptying study consistent with gastroparesis. An upper endoscopy is being performed to rule out a mechanical obstruction. Instrument: diagnostic gastroscope Meds Received: MAC Patient's Tolerance: fair Complications: vomiting/probable aspiration requiring intubation Extent Reached: david limb of the jejunum Impression: 1. Findings consistent with gastroparesis. 2. Friable erythematous surgical anastomosis, but no obvious mechanical obstruction. 3. J-shaped stomach. 4. Hypoxia and probable aspiration treated with intubation and admissiion to the ICU. Recommendations: 1. He should continue prilosec regularly. 2. He should continue reglan as needed. 3. He should eat smaller more frequent meals. 4. He should follow up the pathology results as an outpatient. 5. Management of respiratory complications as per the critical care team. Assessment/Plan: as above
--- NOTE | 2018-01-29 13:29 | RADIOLOGY REPORT ---
EXAMINATION: XR MODIFIED BARIUM SWALLOW CLINICAL INFORMATION: Cough with water at bedside. Swallow deficiency. COMPARISON: None TECHNIQUE: Fluoroscopic assistance was provided during a modified barium swallow performed in cooperation with the speech pathology service. FLUOROSCOPY TIME: 56 seconds NUMBER OF SAVED IMAGES: No spot fluoroscopy images were obtained. Instead, only screen captured images were saved in the electronic picture archive. FINDINGS: The modified barium swallow examination was performed in cooperation with the speech pathologist using dynamic fluoroscopic imaging in a lateral projection. The patient's swallowing function was observed during administration of apple sauce puree, honey, nectar, thin barium contrast, and barium coated bread and cracker. With thin barium contrast and nectar, there was spillage of contrast material to level of the vallecula and piriform sinuses. There were no episodes of tracheal aspiration or penetration. IMPRESSION: No evidence of tracheal aspiration or penetration. Please refer to the speech pathology report regarding their assessment.
[2018-01-29 16:00] VITALS: BP 144/70
[2018-01-29 17:22] LABS: PTT 65 SEC (25-37)
[2018-01-29 22:46] VITALS: BP 156/60
[2018-01-30 04:58] LABS: ABSOLUTE BASOPHIL COUNT 0 /CUMM (0.0-0.2); ABSOLUTE EOSINOPHIL COUNT 0 /CUMM (0.0-0.7); ABSOLUTE GRANULOCYTE CT 7.8 /CUMM (1.4-6.5); ABSOLUTE LYMPH COUNT 0.6 /CUMM (1.2-3.4); ABSOLUTE MONOCYTE COUNT 1.2 /CUMM (0.10-0.60); BASOPHIL % 0.3 % (0.0-2.0); EOSINOPHIL % 0.4 % (0-5); GRANULOCYTE % 80.8 % (42.2-75.2); HEMATOCRIT 36.7 % (42-52); MEAN CORPUSCULAR HGB 31.5 PG (27.0-31.0); MEAN CORPUSCULAR VOLUME 95.5 FL (80.0-94.0); MEAN PLATELET VOLUME 9.7 FL (7.4-10.4); PLATELET COUNT 154 /CUMM (130-400); RBC DISTRIBUTION WIDTH 15.5 % (11.5-14.5); RED BLOOD CELL CT 3.85 /CUMM (4.70-6.10); WHITE BLOOD CELL COUNT 9.7 /CUMM (4.8-10.8)
[2018-01-30 05:04] LABS: PT 15.5 SEC (9.4-12.5)
[2018-01-30 05:06] LABS: PTT 62 SEC (25-37)
[2018-01-30 06:31] VITALS: BP 122/60
--- NOTE | 2018-01-30 06:59 | PN- Housestaff ---
Zafar RODRIGUEZ,Rocio 01/30/18 0659: Subjective Follow-up For: Aspiration pneumonia Complaints: no complaints Subjective: Patient seen and examined at bedside. He was sitting in his bed on 3 L of oxygen. He appears in no acute distress. He denies cough, fever, chest pain, palpitation, weakness. Review of Systems Constitutional: Reports: no symptoms. Cardiovascular: Reports: no symptoms. Respiratory: Reports: no symptoms. Gastrointestinal: Reports: no symptoms. Genitourinary: Reports: no symptoms. Objective Last 24 Hrs of Vital Signs/I&O Vital Signs Date Time Temp Pulse Resp B/P B/P Pulse O2 O2 Flow FiO2 Mean Ox Delivery Rate 01/30 1133 97.5 85 122/60 01/30 0834 97.5 85 122/60 01/30 0631 97.5 85 20 122/60 93 Nasal Cannula 01/30 0000 93 Nasal 3.0L Cannula 01/29 2246 97.8 106 20 156/60 93 Nasal Cannula 01/29 1620 82 144/70 01/29 1600 98.9 80 20 144/70 95 Nasal 3.0L Cannula 01/29 1600 95 Nasal 4.0L Cannula 01/29 1552 93 Nasal 4.0L Cannula Intake & Output 01/30 1600 01/30 0800 01/30 0000 Intake Total 422 1070 Output Total 300 1600 Balance 122 -530 Intake, IV 242 350 Intake, Oral 180 720 Number 0 4 Bowel Movements Output, Urine 300 1600 Patient 237 lb Weight Weight Bed scale Measurement Method Physical Exam General Appearance: Alert, Oriented X3, Cooperative, No Acute Distress Cardiovascular: Regular Rate, Normal S1, Normal S2, No Murmurs Lungs: B/L WHEEZE Abdomen: Soft, No Tenderness, No Hepatospenomegaly, OBESE Neurological: Normal Speech, Strength at 5/5 X4 Ext, Normal Tone, Sensation Intact Extremities: MILD EDEMA Current Medications: Current Medications Sig/Franki Start time Last Medication Dose Route Stop Time Status Admin Albuterol Sulfate 3 ML EVERY 4 HRS/AWAKE 01/29 0800 AC 01/30 INH 1327 Albuterol Sulfate 3 ML Q4P PRN 01/27 1400 AC INH Amiodarone HCl 200 MG DAILY 01/30 0900 AC 01/30 PO 0834 Ampicillin Sodium/ 1,500 MG Q6 01/27 1200 DC 01/29 Sulbactam Sodium IV 1230 Sodium Chloride 100 ML Aspirin Buffered 81 MG DAILY 01/28 1422 AC 01/30 PO 0834 Carbidopa/Levodopa 1 TAB BID 01/28 1422 AC 01/30 PO 0833 Ciprofloxacin 500 MG BID 01/29 2100 DC PO 02/02 205 Ciprofloxacin 500 MG Q12H 01/29 1815 DC 01/29 PO 02/02 1803 2117 Ciprofloxacin 500 MG 0900,2100 01/29 1518 AC 01/30 PO 02/02 1803 0833 Finasteride 5 MG DAILY 01/28 1423 AC 01/30 PO 0840 Furosemide 40 MG DAILY 01/30 0900 AC 01/30 PO 0834 Furosemide 20 MG ONCE ONE 01/29 2200 DC IV 01/29 2201 Furosemide 20 MG ONCE ONE 01/29 1600 DC 01/29 IV 01/29 1601 1618 Heparin Sodium 25,000 UNIT Q16H 01/29 1130 AC 01/30 (Porcine) IV 0434 Sodium Chloride 500 ML Insulin Aspart 0 TIDAC 01/30 0800 01/30 SC 1141 Insulin Human Regular 4 UNITS .STK-MED ONE 01/29 1747 DC IV 01/29 1748 Insulin Human Regular 0 Q6 01/27 1200 MO 01/29 SC 1748 Lorazepam 2 MG Q2 PRN 01/28 0545 IV Magnesium Sulfate 1 GM ONCE ONE 01/29 1530 DC 01/29 Dextrose/Water 100 ML IV 01/29 1929 1747 Metoclopramide HCl 10 MG Q8 01/27 2200 01/30 IV 0538 Omeprazole 40 MG DAILY AC 01/30 0700 AC 01/30 PO 0538 Pantoprazole Sodium 40 MG DAILY 01/27 1036 MO 01/29 IV 0810 Phenol 2 SPRAY Q2P PRN 01/28 1115 01/28 EXT 1212 Potassium Chloride 60 MEQ ONCE ONE 01/30 0730 DC 01/30 PO 01/30 0731 0832 Tamsulosin HCl 0.4 MG DAILY 01/29 0900 AC 01/30 PO 1133 Warfarin Sodium 5 MG COUMADIN 1700 ONE 01/30 1700 AC PO 01/30 1701 Warfarin Sodium 5 MG COUMADIN 1700 ONE 01/29 1700 DC 01/29 PO 01/29 1701 1746 Last 24 Hrs of Lab/Louis Results Last 24 Hrs of Labs/Mics: Laboratory Tests 01/30/18 0440: PT 15.5 H, INR 1.42 H 01/30/18 0440: Anion Gap 10, Estimated GFR > 60, Glucose 157 H, Calcium 8.5, Phosphorus 3.2, Magnesium 1.7, Total Bilirubin 0.8, AST 20, ALT 18 L, Albumin 2.9 L, APTT 62 H, CBC w Diff NO MAN DIFF REQ, RBC 3.85 L, MCV 95.5 H, MCH 31.5 H, MCHC 33.0, RDW 15.5 H, MPV 9.7, Gran % 80.8 H, Lymphocytes % 6.3 L, Monocytes % 12.2 H, Eosinophils % 0.4, Basophils % 0.3, Absolute Granulocytes 7.8 H, Absolute Lymphocytes 0.6 L, Absolute Monocytes 1.2 H, Absolute Eosinophils 0, Absolute Basophils 0 01/29/18 1615: APTT 65 H 01/29/18 1400: APTT Cancelled Assessment/Plan Assessment: Patient is an 82-year-old male with multiple medical problem was under going upper GI endoscopy for worsening reflux symptoms and constipation over the past few months of uncertain etiology, complicated by aspiration needed intubation leading to admission to the ICU. Patient treated for aspiration pneumonia with ciprofloxacin was transferred from ICU. Patient past medical history external cardioversion on 12/26/2017 with single 35 to ICD shock followed by normal sinus rhythm * Biventricular ICD implant on 10/30/2017 at [facility] by Dr Flavio Wang * Atrial Fibrillation (Dx Sep 2017) * History of chronic systolic heart failure, LVEF 35%(Aug 2017) * Bilateral lower extremity edema * Cardiac catheterization (04/2017) -severe three-vessel buck[place] coronary artery disease with patent bifurcating saphenous vein graft to the 2nd obtuse marginal and occluded saphenous vein graft to the distal right coronary artery with no obvious evidence of internal mammary artery graft * History of a PE on Coumadin with prior IVC filter * Left bundle branch block (2016) * Ischemic cardiomyopathy * Coronary artery disease status post CABG * Hypertension * Hyperlipidemia GI hx * Gastroparesis syndrome -gastric emptying studies positive * PUD s/p billroth 1 anastomosis many years ago Endocrine * Type 2 diabetes Neurology - * Parkinson's disease Assessment and problem Aspiration pneumonia secondary to upper GI endoscopy leading to gagging and vomiting Patient being treated with ciprofloxacin for Pseudomonas and E. coli. Patient is being treated with ciprofloxacin day 2. Patient has bilateral wheeze. Continue TRC nebulization. Pulmonology on board. Patient might need repeat chest x-ray in 4 weeks. Awaiting GI input History of coronary artery disease, status post bypass, atrial fibrillation on Coumadin, biventricular ICD We will continue amiodarone, Lasix. Currently heparin and Coumadin bridging day 2. His INR today is 1.42. We will give 5 mg of warfarin. We will check INR tomorrow. Cardiology agrees with the plan. Patient is on Garcia catheter which we will removed today. Out of bed and ambulation. Patient was seen by physical therapy was suggested short-term rehab. Code-full code Diet-diabetic diet DVT prophylaxis-patient is on IV heparin Problem List: 1. Acute and chronic respiratory failure with hypoxia Pain Ratin Pain Location: NONE Pain Goal: Remain pain free Pain Plan: TYLENOL Tomorrow's Labs & Rationales: CBC,,BEP Adriana RODRIGUEZ,Josy 01/30/18 1035: Attending MD Review Statement Attending Statement Attending MD Statement: examined this patient, discuss w/resident/PA/BANK VAULT CLERK, agreed w/resident/PA/BANK VAULT CLERK, reviewed EMR data (avail) Attending Assessment/Plan: 82M PMH CAD s/p CABG and AICD, chronic atrial fibrillation on Coumadin, T2DM, HLD, T2DM, underwent upper GI endoscopy for worsening reflux symptoms and constipation on 01/27, aspirated during endoscopy requiring intubation, treated with Unasyn, extubated and doing well. Has been on heparin drip for atrial fibrillation. Today no complaints, hemodynamically stable, saturating 93% on 3L. 1. Aspiration pneumonia of bilateral lower lobes secondary to E.coli and Pseudomonas 2. Acute hypoxic respiratory failure requiring intubation 3. Chronic atrial fibrillation 4. GERD 5. History of CAD Plan - Continue on telemetry - Continue Ciprofloxacin - Follow cardiology and pulmonary recommendations - Elevate head of bed - Titrate down oxygen as tolerated - Continue Coumadin with heparin bridge - Continue home medications
--- NOTE | 2018-01-30 08:56 | PN- Pulmonary ---
Subjective HPI/Critical Care Issues: pt seen and examined discussed with nephew plan of care (nirmala Ballard) started on cipro for e.coli/pseudomonas transferred out of ICU Objective Current Medications: Current Medications Sig/Franki Start time Last Medication Dose Route Stop Time Status Admin Albuterol Sulfate 3 ML EVERY 4 HRS/AWAKE 01/29 0800 AC 01/29 INH 1959 Albuterol Sulfate 3 ML Q4P PRN 01/27 1400 AC INH Amiodarone HCl 200 MG DAILY 01/30 0900 AC 01/30 PO 0834 Amiodarone HCl 200 MG BID 01/28 1422 DC 01/29 PO 0810 Ampicillin Sodium/ 1,500 MG Q6 01/27 1200 DC 01/29 Sulbactam Sodium IV 1230 Sodium Chloride 100 ML Aspirin Buffered 81 MG DAILY 01/28 1422 AC 01/30 PO 0834 Carbidopa/Levodopa 1 TAB BID 01/28 1422 AC 01/30 PO 0833 Ciprofloxacin 500 MG BID 01/29 2100 DC PO 02/02 2059 Ciprofloxacin 500 MG Q12H 01/29 1815 DC 01/29 PO 02/02 1803 2117 Ciprofloxacin 500 MG 0900,2100 01/29 1518 AC 01/30 PO 02/02 1803 0833 Finasteride 5 MG DAILY 01/28 1423 AC 01/30 PO 0840 Furosemide 40 MG DAILY 01/30 0900 AC 01/30 PO 0834 Furosemide 20 MG ONCE ONE 01/29 2200 DC IV 01/29 2201 Furosemide 20 MG ONCE ONE 01/29 1600 DC 01/29 IV 01/29 1601 1618 Furosemide 20 MG ONCE ONE 01/29 1117 DC 01/29 IV 01/29 1118 1138 Furosemide 40 MG DAILY 01/29 0907 DC PO Heparin Sodium 25,000 UNIT Q16H 01/29 1130 AC 01/30 (Porcine) IV 0434 Sodium Chloride 500 ML Heparin Sodium 25,000 UNIT Q24H 01/27 2000 DC 01/28 (Porcine) IV 2207 Sodium Chloride 500 ML Insulin Aspart 0 TIDAC 01/30 0800 AC 01/30 SC 0834 Insulin Human Regular 4 UNITS .STK-MED ONE 01/29 1747 DC IV 01/29 1748 Insulin Human Regular 0 Q6 01/27 1200 DC 01/29 SC 1748 Lorazepam 2 MG Q2 PRN 01/28 0545 IV Magnesium Sulfate 1 GM ONCE ONE 01/29 1530 DC 01/29 Dextrose/Water 100 ML IV 01/29 1929 1747 Metoclopramide HCl 10 MG Q8 01/27 2200 AC 01/30 IV 0538 Omeprazole 40 MG DAILY AC 01/30 0700 AC 01/30 PO 0538 Pantoprazole Sodium 40 MG DAILY 01/27 1036 DC 01/29 IV 0810 Phenol 2 SPRAY Q2P PRN 01/28 1115 AC 01/28 EXT 1212 Potassium Chloride 60 MEQ ONCE ONE 01/30 0730 DC 01/30 PO 01/30 0731 0832 Tamsulosin HCl 0.4 MG DAILY 01/29 0900 AC 01/29 PO 1620 Warfarin Sodium 5 MG COUMADIN 1700 ONE 01/30 1700 AC PO 01/30 1701 Warfarin Sodium 5 MG COUMADIN 1700 ONE 01/29 1700 DC 01/29 PO 01/29 1701 1746 Vital Signs & I&O Last 24 Hrs of Vitals and I&O: Vital Signs Date Time Temp Pulse Resp B/P B/P Pulse O2 O2 Flow FiO2 Mean Ox Delivery Rate 01/30 0834 97.5 85 122/60 01/30 0631 97.5 85 20 122/60 93 Nasal Cannula 01/30 0000 93 Nasal 3.0L Cannula 01/29 2246 97.8 106 20 156/60 93 Nasal Cannula 01/29 1620 82 144/70 01/29 1600 98.9 80 20 144/70 95 Nasal 3.0L Cannula 01/29 1600 95 Nasal 4.0L Cannula 01/29 1552 93 Nasal 4.0L Cannula Intake & Output 01/30 1600 01/30 0800 01/30 0000 Intake Total 422 1070 Output Total 300 1600 Balance 122 -530 Intake, IV 242 350 Intake, Oral 180 720 Number 0 4 Bowel Movements Output, Urine 300 1600 Patient 237 lb Weight Weight Bed scale Measurement Method Exam Other Physical Findings: gen-awake, comfortable heent-nc cvs-s1,s2 lungs-b/l rhonchi abd-soft,bs+ ext-without edema Results Last 24 Hrs of Lab Results: Laboratory Tests 01/30/180: PT 15.5 H, INR 1.42 H 01/30/18 0440: Anion Gap 10, Estimated GFR > 60, Glucose 157 H, Calcium 8.5, Phosphorus 3.2, Magnesium 1.7, Total Bilirubin 0.8, AST 20, ALT 18 L, Albumin 2.9 L, APTT 62 H, CBC w Diff NO MAN DIFF REQ, RBC 3.85 L, MCV 95.5 H, MCH 31.5 H, MCHC 33.0, RDW 15.5 H, MPV 9.7, Gran % 80.8 H, Lymphocytes % 6.3 L, Monocytes % 12.2 H, Eosinophils % 0.4, Basophils % 0.3, Absolute Granulocytes 7.8 H, Absolute Lymphocytes 0.6 L, Absolute Monocytes 1.2 H, Absolute Eosinophils 0, Absolute Basophils 0 01/29/18 1615: APTT 65 H 01/29/18 1400: APTT Cancelled Impression/Plan Impression/Plan Impression/Plan: Impression 82 year old man * aspiration pneumonia/pneumonitis - RESOLVED acute hypoxemic respiratory failure requiring intubation, now extubated * E.Coli/Pseudomonas in sputum (sensitive to cipro) Plan -course of ciprofloxacin -f/u CXR within 3-4 weeks of completing therapy -f/u GI and cardiology call with any questions yesterday updated plan of care to the nephew (nirmala lee @ [place]) DVT prophylaxis at all times
--- NOTE | 2018-01-30 11:36 | PN- Cardiology ---
Subjective Subjective: Doing well. Reports minimal cough. Denies shortness of breath. Objective Vital Signs and I&Os Vital Signs Date Time Temp Pulse Resp B/P B/P Pulse O2 O2 Flow FiO2 Mean Ox Delivery Rate 01/30 0834 97.5 85 122/60 01/30 0631 97.5 85 20 122/60 93 Nasal Cannula 01/30 0000 93 Nasal 3.0L Cannula 01/29 2246 97.8 106 20 156/60 93 Nasal Cannula 01/29 1620 82 144/70 01/29 1600 98.9 80 20 144/70 95 Nasal 3.0L Cannula 01/29 1600 95 Nasal 4.0L Cannula 01/29 1552 93 Nasal 4.0L Cannula Intake & Output 01/30 1600 01/30 0800 01/30 0000 01/29 1600 01/29 0800 01/29 0000 Intake Total 422 1070 395 571 356 Output Total 300 4186 562 9641 2615 Balance 122 -530 -505 -729 -7989 Intake, IV 242 350 395 571 356 Intake, Oral 180 720 Number 0 4 2 0 1 Bowel Movements Output, Urine [phone] [id number] Patient 237 lb 234 lb 234 lb Weight Weight Bed scale Bed scale Measurement Method Physical Exam: General: no apparent distress. Alert Eyes: No obvious scleral icterus. HEENT: No jugular venous distention or abnormal jugular venous pulsations. Cardiovascular: Normal intensity S1/S2. Regular, pacemaker noted Respiratory: No rales or rhonchi Abdomen: Soft, nontender with no guarding or rebound tenderness. Musculoskeletal: No clubbing or cyanosis noted Skin: warm Neurologic: Alert Lymph: No gross lymphadenopathy. Current Medications: Current Medications Sig/Franki Start time Last Medication Dose Route Stop Time Status Admin Albuterol Sulfate 3 ML EVERY 4 HRS/AWAKE 01/29 0800 AC 01/30 INH 0902 Albuterol Sulfate 3 ML Q4P PRN 01/27 1400 AC INH Amiodarone HCl 200 MG DAILY 01/30 0900 AC 01/30 PO 0834 Ampicillin Sodium/ 1,500 MG Q6 01/27 1200 DC 01/29 Sulbactam Sodium IV 1230 Sodium Chloride 100 ML Aspirin Buffered 81 MG DAILY 01/28 1422 AC 01/30 PO 0834 Carbidopa/Levodopa 1 TAB BID 01/28 1422 AC 01/30 PO 0833 Ciprofloxacin 500 MG BID 01/29 2100 DC PO 07/02 2059 Ciprofloxacin 500 MG Q12H 01/29 1815 DC 01/29 PO 02/02 1803 2117 Ciprofloxacin 500 MG 0900,2100 01/29 1518 AC 01/30 PO 02/02 1803 0833 Finasteride 5 MG DAILY 01/28 1423 AC 01/30 PO 0840 Furosemide 40 MG DAILY 01/30 0900 01/30 PO 0834 Furosemide 20 MG ONCE ONE 01/29 2200 DC IV 01/29 2201 Furosemide 20 MG ONCE ONE 01/29 1600 DC 01/29 IV 01/29 1601 1618 Furosemide 20 MG ONCE ONE 01/29 1117 DC 01/29 IV 01/29 1118 1138 Furosemide 40 MG DAILY 01/29 0907 DC PO Heparin Sodium 25,000 UNIT Q16H 01/29 1130 01/30 (Porcine) IV 0434 Sodium Chloride 500 ML Heparin Sodium 25,000 UNIT Q24H 01/[address] 01/28 (Porcine) IV 2207 Sodium Chloride 500 ML Insulin Aspart 0 TIDAC 01/30 0800 01/30 SC 0834 Insulin Human Regular 4 UNITS .STK-MED ONE 01/29 1747 DC IV 01/29 1748 Insulin Human Regular 0 Q6 01/[address] 01/29 SC 1748 Lorazepam 2 MG Q2 PRN 01/28 0545 IV Magnesium Sulfate 1 GM ONCE ONE 01/[address] 01/29 Dextrose/Water 100 ML IV 01/29 1929 1747 Metoclopramide HCl 10 MG Q8 01/27 2200 01/30 IV 0538 Omeprazole 40 MG DAILY AC 01/30 0700 01/30 PO 0538 Pantoprazole Sodium 40 MG DAILY 01/[address] 01/29 IV 0810 Phenol 2 SPRAY Q2P PRN 01/28 1115 01/28 EXT 1212 Potassium Chloride 60 MEQ ONCE ONE 01/30 0730 DC 01/30 PO 01/30 0731 0832 Tamsulosin HCl 0.4 MG DAILY 01/29 0900 AC 01/29 PO 1620 Warfarin Sodium 5 MG COUMADIN 1700 ONE 01/30 1700 AC PO 01/30 1701 Warfarin Sodium 5 MG COUMADIN 1700 ONE 01/29 1700 DC 01/29 PO 01/29 1701 1746 Results Last 48 Hrs of Labs/Mics: Laboratory Tests 01/30/18 0440: PT 15.5 H, INR 1.42 H 06/29/18 0440: Anion Gap 10, Estimated GFR > 60, Glucose 157 H, Calcium 8.5, Phosphorus 3.2, Magnesium 1.7, Total Bilirubin 0.8, AST 20, ALT 18 L, Albumin 2.9 L, APTT 62 H, CBC w Diff NO MAN DIFF REQ, RBC 3.85 L, MCV 95.5 H, MCH 31.5 H, MCHC 33.0, RDW 15.5 H, MPV 9.7, Gran % 80.8 H, Lymphocytes % 6.3 L, Monocytes % 12.2 H, Eosinophils % 0.4, Basophils % 0.3, Absolute Granulocytes 7.8 H, Absolute Lymphocytes 0.6 L, Absolute Monocytes 1.2 H, Absolute Eosinophils 0, Absolute Basophils 0 01/29/18 1615: APTT 65 H 01/29/18 1400: APTT Cancelled 01/29/18 0415: PT 12.0, INR 1.10 01/29/18 0415: Anion Gap 11, Estimated GFR > 60, Glucose 135 H, Calcium 8.1 L, Phosphorus 4.0 , Magnesium 1.5 L, Total Bilirubin 0.9, AST 27, ALT 25, Albumin 3.1 L, APTT 76 H, CBC w Diff NO MAN DIFF REQ, RBC 4.05 L, MCV 94.8 H, MCH 31.7 H, MCHC 33.5 , RDW 15.8 H, MPV 10.1, Gran % 80.8 H, Lymphocytes % 6.9 L, Monocytes % 12.1 H, Eosinophils % 0.1, Basophils % 0.1, Absolute Granulocytes 8.9 H, Absolute Lymphocytes 0.8 L, Absolute Monocytes 1.3 H, Absolute Eosinophils 0, Absolute Basophils 0 01/28/18 2340: Anion Gap 12, Estimated GFR > 60, BUN/Creatinine Ratio 18.2 01/28/184: APTT 59 H 01/28/18 1400: PT Cancelled, INR Cancelled Recent Imaging Studies: Telemetry tracings were personally reviewed and showed paced rhythm Assessment/Plan Assessment/Plan 1. EGD complicated by aspiration requiring intubation 2. History of ischemic cardiomyopathy with decreased ejection fraction 3. History of coronary artery disease with prior bypass and known graft occlusions 4. History of biventricular AICD and PVCs 5. History of atrial fibrillation on Coumadin 6. History of hypertension 7. History of diabetes Patient is doing well today. Continue Coumadin; INR currently subtherapeutic and he is being bridged with intravenous heparin. Continue oral amiodarone and oral Lasix. Resume his other outpatient cardiac medications. Antibiotic per the medical team. He appears euvolemic on exam today. When he is otherwise stable for discharge he does not need to stay in the hospital to simply await for therapeutic INR level but while he is here it is reasonable to continue the intravenous heparin. Familia Daniel MD [facility] Continue telemetry? No
[2018-01-30] MEDS ORDERED: AMIODARONE HCL200 M1 PO (14:05)
--- NOTE | 2018-01-30 14:07 | Patient Discharge Instructions ---
Discharge Instructions General Discharge Information You were seen/treated for: Aspiration pneumonia Watch for these problems: In case of chest pain, shortness of breath, nausea, vomiting please go to the nearest emergency room Special Instructions: Please follow-up with your primary care provider/internal investigator/covering machine tender within 1-2 weeks of discharge. Please do follow-up chest X-ray after 4 week and review with your primary care physician. Please check your INR and review it as an outpatient with your primary care physician. Diet Continue normal diet: No Recommended Diet: Heart Healthy Activity Full Activity/No Limits: No Activity Self Limited: Yes Acute Coronary Syndrome Inclusion Criteria At DC or during hospital stay patient has or had the following: ACS DIAGNOSIS No Discharge Core Measures Meds if any: Prescribed or Continued at Discharge Meds if any: NOT Prescribed or Continued at Discharge Congestive Heart Failure Inclusion Criteria At DC or during hospital stay patient has or had the following: CHF DIAGNOSIS No Discharge Core Measures Meds if any: Prescribed or Continued at Discharge Meds if any: NOT Prescribed or Continued at Discharge Cerebrovascular accident Inclusion Criteria At DC or during hospital stay patient has or had the following: CVA/TIA Diagnosis No Discharge Core Measures Meds if any: Prescribed or Continued at Discharge Meds if any: NOT Prescribed or Continued at Discharge Venous thromboembolism Inclusion Criteria VTE Diagnosis No VTE Type NONE VTE Confirmed by (Test) NONE Discharge Core Measures - Per Current guidelines, there needs to be overlap - treatment for the first 5 days of Warfarin therapy. - If discharged on Warfarin prior to 5 days of - overlap therapy, the patient will need to be - assessed for post discharge needs including - *Post discharge parental anticoagulation - *Warfarin and/or parental anticoagulation education - *Follow up date to check INR post discharge At least 5 days overlap therapy as Inpatient No Meds if any: Prescribed or Continued at Discharge Note: Overlap Therapy is Warfarin and Anticoagulant Meds if any: NOT Prescribed or Continued at Discharge
[2018-01-30 14:17] VITALS: BP 131/60
[2018-01-30 17:22] LABS: PTT 78 SEC (25-37)
[2018-01-30 22:11] VITALS: BP 140/82
[2018-01-31 04:58] LABS: ABSOLUTE BASOPHIL COUNT 0 /CUMM (0.0-0.2); ABSOLUTE EOSINOPHIL COUNT 0 /CUMM (0.0-0.7); ABSOLUTE GRANULOCYTE CT 6.2 /CUMM (1.4-6.5); ABSOLUTE LYMPH COUNT 0.7 /CUMM (1.2-3.4); ABSOLUTE MONOCYTE COUNT 1.1 /CUMM (0.10-0.60); BASOPHIL % 0.2 % (0.0-2.0); EOSINOPHIL % 0.5 % (0-5); GRANULOCYTE % 77.4 % (42.2-75.2); HEMATOCRIT 34.4 % (42-52); MEAN CORPUSCULAR HGB 31.8 PG (27.0-31.0); MEAN CORPUSCULAR HGB CONC 33.5 G/DL (33.0-37.0); MEAN CORPUSCULAR VOLUME 94.7 FL (80.0-94.0); MEAN PLATELET VOLUME 9.7 FL (7.4-10.4); PLATELET COUNT 160 /CUMM (130-400); RBC DISTRIBUTION WIDTH 15.6 % (11.5-14.5); RED BLOOD CELL CT 3.64 /CUMM (4.70-6.10)
[2018-01-31 05:12] LABS: PT 22.9 SEC (9.4-12.5)
[2018-01-31 06:48] VITALS: BP 102/64
--- NOTE | 2018-01-31 09:08 | PN- Housestaff ---
See Addendum Subjective Follow-up For: aspiration pneumonia Subjective: feeling better, now on 1L o2 getting a nebulized albuterol treatment this morning afebrile on cipro for aspiration reports breathing more comfortably Review of Systems Constitutional: Reports: see HPI. Objective Last 24 Hrs of Vital Signs/I&O Vital Signs Date Time Temp Pulse Resp B/P B/P Pulse O2 O2 Flow FiO2 Mean Ox Delivery Rate 01/31 1006 90 102/64 01/31 1006 90 102/64 01/31 1005 90 102/64 01/31 1005 90 102/64 01/31 1004 90 102/64 01/31 0819 94 Nasal 1.0L Cannula 01/31 0648 97.5 90 22 102/64 91 Nasal Cannula 01/31 0000 Nasal 1.0L Cannula 01/30 2211 97.5 88 18 140/82 92 01/30 2055 592 Nasal 1.0L Cannula 01/30 2051 83 122/48 01/30 1417 97.9 70 18 131/60 97 Nasal 1.5L Cannula 01/30 1327 94 Nasal 2.0L Cannula Intake & Output 01/31 1600 01/31 0800 01/31 0000 Intake Total 440 220 Output Total 150 Balance 290 220 Intake, Oral 440 220 Number 1 Bowel Movements Output, Urine 150 Patient 107.104 kg Weight Physical Exam General Appearance: Alert, Oriented X3, Cooperative, No Acute Distress Cardiovascular: Regular Rate, Normal S1, Normal S2, No Murmurs Lungs: bilateral bibasilar rhonchi Abdomen: Normal Bowel Sounds, Soft, No Tenderness, No Masses Extremities: No Clubbing, No Cyanosis, Normal Pulses, 1+ b/l le edema Current Medications: Current Medications Sig/Franki Start time Last Medication Dose Route Stop Time Status Admin Albuterol Sulfate 3 ML EVERY 4 HRS/AWAKE 01/29 0800 AC 01/31 INH 0818 Albuterol Sulfate 3 ML Q4P PRN 01/27 1400 AC INH Amiodarone HCl 200 MG DAILY 01/30 0900 AC 01/31 PO 1006 Aspirin Buffered 81 MG DAILY 01/28 1422 AC 01/31 PO 1006 Carbidopa/Levodopa 1 TAB BID 01/28 1422 AC 01/31 PO 1005 Ciprofloxacin 500 MG 0900,2100 01/29 1518 AC 01/31 PO 02/02 1803 1006 Finasteride 5 MG DAILY 01/28 1423 AC 01/31 PO 1005 Furosemide 40 MG DAILY 01/30 0900 AC 01/31 PO 1005 Heparin Sodium 25,000 UNIT .STK-MED ONE 01/30 2135 DC (Porcine) IV 01/30 2136 Heparin Sodium 25,000 UNIT Q16H 01/29 1130 AC 01/30 (Porcine) IV 2139 Sodium Chloride 500 ML Insulin Aspart 0 TIDAC 01/30 0800 AC 01/30 SC 1708 Isosorbide 60 MG DAILY 01/31 0900 AC 01/31 Mononitrate PO 1006 Lorazepam 2 MG Q2 PRN 01/28 0545 AC IV Metoclopramide HCl 10 MG Q8 01/27 2200 AC 01/31 IV 0649 Metoprolol Succinate 50 MG DAILY 01/31 0900 AC 01/31 PO 1005 Omeprazole 40 MG DAILY AC 01/30 0700 AC 01/31 PO 0649 Patient Medication 1 ED ONE ONE 01/30 1400 DC 01/30 Teaching ED 01/30 1401 1458 Phenol 2 SPRAY Q2P PRN 01/28 1115 AC 01/28 EXT 1212 Potassium Chloride 40 MEQ BID 01/31 1113 AC PO 02/01 2101 Ranolazine 1,000 MG BID 01/30 2100 AC 01/31 PO 1004 Tamsulosin HCl 0.4 MG DAILY 01/29 0900 AC 01/31 PO 1005 Warfarin Sodium 5 MG COUMADIN 1700 ONE 01/30 1700 DC 01/30 PO 01/30 1701 1708 Last 24 Hrs of Lab/Louis Results Last 24 Hrs of Labs/Mics: Laboratory Tests 01/31/18 0415: Anion Gap 10, Estimated GFR > 60, BUN/Creatinine Ratio 20.0, Phosphorus 2.9, Magnesium 1.5 L, PT 22.9 H, INR 2.09 H, CBC w Diff NO MAN DIFF REQ, RBC 3.64 L, MCV 94.7 H, MCH 31.8 H, MCHC 33.5, RDW 15.6 H, MPV 9.7, Gran % 77.4 H, Lymphocytes % 8.5 L, Monocytes % 13.4 H, Eosinophils % 0.5, Basophils % 0.2, Absolute Granulocytes 6.2, Absolute Lymphocytes 0.7 L, Absolute Monocytes 1.1 H, Absolute Eosinophils 0, Absolute Basophils 0 01/30/18 1630: APTT 78 H Assessment/Plan Assessment: 82 year old male with h/o HFrEF (LVEF 35%) LBBB s/p AICD/PPM, afib on coumadin, CAD s/p CABG, HTN, HLD, DM, gastroparesis, and parkinson's was admitted for aspiration pneumonia and respiratory failure requiring intubation/mechanical ventilation after underoing endoscopy for worsening reflux symptoms. Aspiration pneumonia of bilateral lower lobes complicated by hypoxic respiratory failure requiring mechanical ventilation: Cultures positive for E. Coli/Pseudomonas Continue ciprofloxacin Currently on 3L supplemental oxygen TRC evaluation, continue nebulized albuterol treatments Atrial fibrillation: On heparin gtt Dose coumadin per INR Continue amiodarone Replete K CAD/HFrEF: Continue metoprolol, imdur, ranexa, lasix GERD: PO PPI Parkisons: continue sinemet BPH: continue flomax and finasteride Regular diet DVT ppx-on heparin gtt/coumadin Full code Problem List: 1. Atrial fibrillation status post cardioversion 2. Acute respiratory failure with hypoxia 3. Aspiration pneumonia Pain Ratin Pain Location: n/a Pain Goal: Pain 4 or less Pain Plan: prn Tomorrow's Labs & Rationales: pt/inr, bep
[2018-01-31 14:24] VITALS: BP 102/58
[2018-01-31 15:58] LABS: PTT 72 SEC (25-37)
[2018-01-31 22:17] VITALS: BP 120/58
[2018-02-01 06:01] VITALS: BP 126/64
[2018-02-01 07:31] LABS: ABSOLUTE BASOPHIL COUNT 0.1 /CUMM (0.0-0.2); ABSOLUTE EOSINOPHIL COUNT 0.1 /CUMM (0.0-0.7); ABSOLUTE GRANULOCYTE CT 6.7 /CUMM (1.4-6.5); ABSOLUTE LYMPH COUNT 0.6 /CUMM (1.2-3.4); BASOPHIL % 0.7 % (0.0-2.0); EOSINOPHIL % 0.7 % (0-5); GRANULOCYTE % 79.3 % (42.2-75.2); HEMATOCRIT 34.6 % (42-52); MEAN CORPUSCULAR HGB 31.7 PG (27.0-31.0); MEAN CORPUSCULAR HGB CONC 33.4 G/DL (33.0-37.0); MEAN CORPUSCULAR VOLUME 94.8 FL (80.0-94.0); MEAN PLATELET VOLUME 9.5 FL (7.4-10.4); PLATELET COUNT 174 /CUMM (130-400); RBC DISTRIBUTION WIDTH 15.8 % (11.5-14.5); RED BLOOD CELL CT 3.65 /CUMM (4.70-6.10); WHITE BLOOD CELL COUNT 8.4 /CUMM (4.8-10.8)
--- NOTE | 2018-02-01 08:00 | Discharge Summary ---
Visit Information Visit Dates Admission Date: 01/27/18 Discharge Date: 02/02/18 Hospital Course Course Attending Physician: Josy Wright MD Primary Care Physician: Parish Gar MD Consulting Request: Consulting Specialty: Cardiology Hospital Course: Patient is an 82-year-old male with past medical history of hypertension, hyperlipidemia, diabetes, coronary artery disease, CABG, A. fib, biventricular pacemaker, had GI endoscopy for his reflex symptoms which was complicated by aspiration requiring intubation and ICU admission. Preprocedure vital signs-pulse 84, blood pressure 133/66, respiratory rate 16, temperature 97F, SPO2 98% on room air. He underwent endoscopy on January 27. During the procedure he began vomiting and became hypoxic to a point the scope was removed from the patient he was actually suctioned and given supplemental oxygen with an Ambu bag and was ultimately intubated to protect the airway. After that, he continued to have gastric secretions from the nose, mouth. It was planned to admit the patient in the ICU. Vital signs after the intubation pulse 60, blood pressure 96/68, SPO2 100%. ICU course: Aspiration pneumonia secondary to upper GI endoscopy leading to gagging and vomiting - Upon admission, patient was intubated, started IV fluid normal saline 50 cc/h, with Unasyn 1.5 g IV every 6 hours for aspiration pneumonia, and IV PPI 40 mg daily for GI prophylaxis, with strict input output charting and had and bed elevation. He was initially on propofol, however became hypotensive, and tapered down on propofol and started on fentanyl for sedation, and on 01/28, patient successfully extubated without complications. Patient was on 4 L nasal cannula,92% O2 saturation. Patient likely had aspiration pneumonia, had leukocytosis which resolved on discharge. Microbiology grew Pseudomonas and E. coli which was sensitive to ciprofloxacin. Hence patient was started on p.o. ciprofloxacin. Needs 7 days of abx total for gram neagtive pneumonia. Cardiology recommend to restart amiodarone however decreased dose to 200 mg daily, and was initially on IV Lasix which was switched to p.o. Lasix 40 mg daily on 01/30. Patient was able to tolerate diet. History of coronary artery disease, status post bypass, atrial fibrillation on Coumadin, biventricular ICD - Cardiology was consulted for patient's AICD interrogation, which showed mostly normal function primarily with atrial sensing and ventricular pacing. Patient was maintained with IV metoprolol due to aspiration risk to avoid withdrawal tachycardia, however patient became hypotensive and it was stopped. Please stagger all his blood pressure medication. Patient was on IV heparin drip for A. fib for anticoagulation, which was bridged with warfarin. Patient's home dose warfarin was restarted during the hospital admission but this was again held due to supratherapeutic INR. Patient's home dose is 3 mg every day. Please do INR tomorrow and follow-up with the primary care physician. Patient was cleared by cardiology to go to short-term rehab. All his home medication was continued. Type 2 diabetes - Patient initially was n.p.o. due to aspiration risk and passed his barium swallow. He was on Accu-Chek and NovoLog sliding scale insulin. Physical deconditioning Patient worked with physical therapy. Physical therapy recommending short-term rehab. 1. Please do a follow-up chest x-ray in 4 weeks and review with your primary care physician 2. Patient's Coumadin dose was held because of supratherapeutic INR. Please follow-up with INR with your primary care physician. Allergies: Coded Allergies: NO KNOWN ALLERGIES (NONE 08/01/17) Pertinent Lab Results: Chest x-ray January 27 Patchy and linear opacities in the left greater than right lung base may reflect atelectasis versus developing infiltrates. Endotracheal tube tip is 4.5 cm from the eva. There may be an enteric tube in place, due to technique, the distal end is not visualized. Correlate clinically. Chest x-ray January 29 Lungs are hypoinflated. - Pulmonary vascular congestion and apparent mild perihilar edema. Disposition Summary Disposition Principal Diagnosis: Aspiration- gram negative pneumonia Additional Diagnosis: Cad s/p CABG DM HTN Chronic systolic heart failure EF 35% Discharge Disposition: SNF Discharge Instructions General Discharge Information Code Status: Full Code Patient's Diet: Diabetic diet Patient's Activity: As tolerated Follow-Up Instructions/Appts: 1. Please follow-up with your primary care provider/client operations manager/ law office receptionist within 1-2 weeks of discharge. 2. Please do repeat chest x-ray in 4 week and review with your primary care physician 3. Please check INR and dose Coumadin to keep INR 2-3. Discharge date INR (02/02) - 3.8 Medications at Discharge Discharge Medications: Stop taking the following medications: Solifenacin Succinate (Vesicare) 10 MG TABLET ORAL DAILY Continue taking these medications: Esomeprazole (Nexium) 40 MG CAPSULE.DR 1 Capsule ORAL DAILY Comments: Last Taken:02/02/18 Time: 5:45 AM OMEPRAZOLE GIVEN SUBSTITUTE Tamsulosin HCl (Flomax) 0.4 MG CAP.ER.24H 1 Capsule ORAL DAILY Qty = 30 Comments: Last Taken:02/01/18 Time: 8:45 AM Ranolazine (Ranexa) 500 MG TAB.ER.12H 2 Tablet ORAL TWICE DAILY Qty = 30 Comments: Last Taken:02/02/18 Time: 9:45 AM Rosuvastatin Calcium (Crestor) 10 MG TABLET 1 Tablet ORAL DAILY Comments: NOT GIVEN WHILE IN HOSPITAL Sacubitril/Valsartan (Entresto 49 MG-51 MG Tablet) 49 MG-51 MG TABLET 1 Tablet ORAL TWICE DAILY Days = 28 Comments: Last Taken:02/02/18 Time: 9:45 AM Ferrous Sulfate (Ferrous Sulfate) 325 MG (65 MG IRON) TABLET 1 Tablet ORAL THREE TIMES DAILY Comments: NOT GIVEN IN HOSPITAL Metformin HCl (Metformin HCl ER) 500 MG TAB.ER.24H 1 Tablet ORAL TWICE DAILY Comments: NOT GIVEN IN HOSPITAL Nitroglycerin (Nitrostat) 0.3 MG TAB.SUBL 1 Tablet SUBLINGUAL As Directed as needed for CHEST PAIN Comments: NOT GIVEN IN HOSPITAL Ubidecarenone (Co Q-10) 100 MG CAPSULE 1 Capsule ORAL DAILY Comments: NOT GIVEN IN HOSPITAL Cyanocobalamin (Vitamin B-12) (Vitamin B-12) 100 MCG TABLET 1 Tablet ORAL DAILY Comments: NOT GIVEN IN HOSPITAL Finasteride (Proscar) 5 MG TABLET 1 Tablet ORAL DAILY Comments: Last Taken:02/01/18 Time: 8:55 AM Brimonidine Tartrate (Alphagan P) 0.15 % DROPS 1 Drop In the eye TWICE DAILY Qty = 30 Comments: DID NOT RECEIVE WHILE IN HOSPITAL Carbidopa/Levodopa (Carbidopa-Levodopa 25-100 Tab) 25 MG-100 MG TABLET 1 Tablet ORAL TWICE DAILY Qty = 30 Comments: Last Taken:02/02/18 Time: 9:45 AM Start taking the following new medications: Ciprofloxacin HCl (Cipro) 500 MG TABLET 500 Milligram ORAL 0900,2099 Days = 1 No Refills Instructions: Plz take twice a day ON 02/03 Comments: Last Taken:02/02/18 Time: 9:45 AM The following medications have been changed: Old: Metoprolol Succ XL (Toprol XL) 25 MG TAB 25 Milligram ORAL DAILY Qty = 30 New: Metoprolol Succinate (Metoprolol Succinate) 50 MG TAB.ER.24H 1 Tablet ORAL DAILY Qty = 30 Comments: Last Taken:02/01/18 Time: 8:45 AM Old: Aspirin (Aspirin*) 81 MG TAB.CHEW 81 Milligram ORAL DAILY Qty = 60 New: Aspirin (Ecotrin*) 81 MG TABLET.DR 1 Tablet ORAL DAILY Qty = 30 Comments: Last Taken:02/02/18 Time: 9:45 AM Old: Furosemide (Lasix) 20 MG TABLET 0 ORAL SEE INSTRUCTIONS Qty = 90 New: Furosemide (Lasix) 20 MG TABLET 40 Milligram ORAL DAILY Qty = 90 Comments: Last Taken:02/01/18 Time: 8:45 AM Old: Isosorbide Mononitrate (Isosorbide Mononitrate ER) 30 MG TAB.ER.24H 30 Milligram ORAL DAILY Qty = 30 New: Isosorbide Mononitrate (Isosorbide Mononitrate ER) 30 MG TAB.ER.24H 60 Milligram ORAL DAILY Qty = 30 Instructions: . Comments: Last Taken:02/01/18 Time: 8:45 AM Old: Amiodarone (Cordarone) 200 MG TAB 1 Tablet ORAL TWICE DAILY New: Amiodarone (Cordarone) 200 MG TAB 1 Tablet ORAL DAILY Qty = 30 Comments: Last Taken:02/02/18 Time: 9:45 AM Old: Warfarin Sodium (Coumadin) 3 MG TABLET 1 Tablet ORAL Qty = 30 New: Warfarin Sodium (Coumadin) 3 MG TABLET 1 Tablet ORAL DAILY Qty = 30 Comments: Please take 1 pill everyday please check INR tomorrow and contact your PCP if result not between 2-3. DID NOT RECEIVE WHILE IN HOSPITAL Copies To: Rin RODRIGUEZ,Parish Velazquez; María RODRIGUEZ,Ye Metzger MD Review Statement Documenting Attending: Napoleon Cloud MD
--- NOTE | 2018-02-01 08:05 | PN- Housestaff ---
Selina Plummer 02/01/18 0804: Subjective Follow-up For: Aspiration pneumonia Complaints: no complaints Tele-Events Since Last Visit: My patient is single paced. Overnight, his HR was 73-86. Possible 9 beat run of V. tach. Subjective: My patient had no specific complaints and no acute events overnight. He is on 1.0 L oxygen. He does not use oxygen at home. He has snoring sounds on breathing. He is not ambulating, currently uses bedpan, but is able to sit up to have his meals. He denies fever/shortness of breath/chest pain/palpitations/ abdominal pain/urinating or bowel movement discomfort. Review of Systems Constitutional: Denies: no symptoms. EENTM: Denies: no symptoms. Cardiovascular: Denies: no symptoms, see HPI. Respiratory: Denies: no symptoms. Gastrointestinal: Denies: no symptoms. Genitourinary: Denies: no symptoms. Musculoskeletal: Denies: no symptoms. Skin: Denies: no symptoms. Neurological/Psychological: Denies: no symptoms. Hematologic/Endocrine: Denies: no symptoms. Immunologic/Allergic: Denies: no symptoms. Objective Last 24 Hrs of Vital Signs/I&O Vital Signs Date Time Temp Pulse Resp B/P B/P Pulse O2 O2 Flow FiO2 Mean Ox Delivery Rate 02/01 0601 98.4 76 20 126/64 91 Nasal Cannula 02/01 0000 Nasal 1.0L Cannula 01/31 2217 97.9 70 20 120/58 91 Nasal Cannula 01/31 2016 78 116/52 01/31 1631 94 Nasal 1.0L Cannula 01/31 1600 Nasal 1.0L Cannula 01/31 1424 98.1 80 22 102/58 98 Nasal Cannula 01/31 1006 90 102/64 01/31 1006 90 102/64 01/31 1005 90 102/64 01/31 1005 90 102/64 01/31 1004 90 102/64 01/31 0819 94 Nasal 1.0L Cannula Intake & Output 02/01 1600 02/01 0800 02/01 0000 Intake Total 200 330 Output Total Balance 200 330 Intake, IV 130 Intake, Oral 200 200 Patient 238 lb Weight Weight Bed scale Measurement Method Physical Exam General Appearance: Alert, Oriented X3, Cooperative, No Acute Distress Skin: No Rashes, No Breakdown, No Significant Lesion Skin Temp/Moisture Exam: Warm/Dry Sepsis Skin Exam (color): Normal for Ethnicity HEENT: Atraumatic, Mucous Membr. moist/pink Neck: Supple, No thryomegaly Cardiovascular: Regular Rate, Normal S1, Normal S2, No Murmurs Lungs: Clear to Auscultation (B/L lower lobe ronchi) Abdomen: Normal Bowel Sounds, Soft Extremities: No Clubbing, No Cyanosis, No Edema, Normal Pulses Orders Fingersticks (last 24 hrs): This morning fasting at 600 am was 166 Radiology Findings: CXR done January 29: Lungs are hypoinflated. Again noted is the left pectoral region cardiac pulse generator and the right atrial and biventricular leads. Cardiac silhouette is mildly enlarged. Pulmonary vessels are congested. There are increased hazy opacities in the perihilar regions. Findings are suggestive of mild, central edema. No pleural effusion, pneumothorax or other significant interval change. Miscellaneous Findings: Modified barium swallow done January 29: FINDINGS: The modified barium swallow examination was performed in cooperation with the speech pathologist using dynamic fluoroscopic imaging in a lateral projection. The patient's swallowing function was observed during administration of apple sauce puree, honey, nectar, thin barium contrast, and barium coated bread and cracker. With thin barium contrast and nectar, there was spillage of contrast material to level of the vallecula and piriform sinuses. There were no episodes of tracheal aspiration or penetration. IMPRESSION: No evidence of tracheal aspiration or penetration. Please refer to the speech pathology report regarding their assessment. Lines/Diet/Fluids Catheters/Tubes: none Garcia Still Needed? No Lines: none Assessment/Plan Assessment: ASSESSMENT & PLAN: My patient is an 82-year-old male with a past medical history of hypertension, hyperlipidemia, diabetes mellitus, CAD, CABG, gastric bypass, biventricular pacemaker, A. fib, and frequent PVCs. Vitals overnight: Afebrile, pulse 76-90, RR 20-22, SBP 102-126, DBP 52-64, Sat 91-98% on 1 L oxygen (he is not on home oxygen). #Aspiration pneumonia of bilateral lower lobes complicated by hypoxic respiratory failure requiring mechanical ventilation: Cultures positive for E. Coli/Pseudomonas Continue ciprofloxacin (day 5/7 today) Currently on 1 L supplemental oxygen. Nursing orders are in for tapering TRC evaluation, continue nebulized albuterol treatments #Hypomagnesemia: His magnesium was 1.5 today so we ordered po 400 mg magnesium oxide once. His potassium is 3.5 today. #Atrial fibrillation: We did not dose the Coumadin today because of supratherapeutic INR (3.19). We will check INR tomorrow and then dose Coumadin on home dose as per attending. Continue amiodarone Keep a check on potassium(it was repleted) F/U with cardiology #CAD/HFrEF: Continue metoprolol, imdur, ranexa, lasix His last echo showed ejection fraction of 35%[August 2017] GERD: PO PPI Parkinsons: continue sinemet BPH: continue flomax and finasteride Miscellaneous: Regular diet Full code Plan is to discharge to [facility] tomorrow Problem List: 1. Aspiration pneumonia Pain Ratin Pain Location: none Pain Goal: Remain pain free Pain Plan: keep pain free Tomorrow's Labs & Rationales: BEP, Mg, PT, CBC w/o diff Tracie RODRIGUEZ,Amir 02/01/18 1048: Attending MD Review Statement Attending Statement Attending MD Statement: examined this patient, discuss w/resident/PA/ROCK LOADER, agreed w/resident/PA/ROCK LOADER, reviewed EMR data (avail), discussed with nursing Attending Assessment/Plan: Mr. Crook was seen and evalauted --f/u Cards recs --K was repleted --Holding coumadin dose tonight, recheck INR before resuming home dose coumadin --rest of the plan as per resident's note
[2018-02-01 08:51] LABS: PT 35.2 SEC (9.4-12.5); PTT 66 SEC (25-37)
--- NOTE | 2018-02-01 12:00 | PN- Cardiology ---
Objective Vital Signs and I&Os Vital Signs Date Time Temp Pulse Resp B/P B/P Pulse O2 O2 Flow FiO2 Mean Ox Delivery Rate 02/01 0855 76 126/64 02/01 0854 76 126/64 02/01 0854 76 126/64 02/01 0854 76 126/64 02/01 0853 76 126/64 02/01 0829 94 Nasal 1.0L Cannula 02/01 0601 98.4 76 20 126/64 91 Nasal Cannula 02/01 0000 Nasal 1.0L Cannula 01/31 2217 97.9 70 20 120/58 91 Nasal Cannula 01/31 2016 78 116/52 01/31 1631 94 Nasal 1.0L Cannula 01/31 1600 Nasal 1.0L Cannula 01/31 1424 98.1 80 22 102/58 98 Nasal Cannula Intake & Output 02/01 0800 02/01 0000 01/31 1600 01/31 0800 01/31 0000 Intake Total 200 330 450 440 220 Output Total 300 150 Balance 200 330 150 290 220 Intake, IV 130 Intake, Oral 200 200 450 440 220 Number 1 Bowel Movements Output, Urine 300 150 Patient 238 lb 236 lb Weight Weight Bed scale Measurement Method Physical Exam: General: no apparent distress. Stable vitals HEENT: No jugular venous distention Cardiovascular: Normal intensity S1/S2. Regular, pacemaker noted Respiratory: No rales or rhonchi, good air entry bilaterally Abdomen: Soft, nontender with no guarding or rebound tenderness. Neurologic: alert, oriented, no focal neurological deficit. Current Medications: Current Medications Sig/Franki Start time Last Medication Dose Route Stop Time Status Admin Albuterol Sulfate 3 ML EVERY 4 HRS/AWAKE 01/29 0800 AC 02/01 INH 0823 Albuterol Sulfate 3 ML Q4P PRN 01/27 1400 AC INH Amiodarone HCl 200 MG DAILY 01/30 09 AC 02/01 PO 0854 Aspirin Buffered 81 MG DAILY 01/28 1422 AC 02/01 PO 0854 Carbidopa/Levodopa 1 TAB BID 01/28 1422 AC 02/01 PO 0853 Ciprofloxacin 500 MG 0900,2100 01/29 1518 AC 02/01 PO 02/02 1803 0854 Finasteride 5 MG DAILY 01/28 1423 AC 02/01 PO 0855 Furosemide 40 MG DAILY 01/30 0900 AC 02/01 PO 0854 Heparin Sodium 25,000 UNIT Q16H 01/29 1130 DC 01/31 (Porcine) IV 1716 Sodium Chloride 500 ML Insulin Aspart 0 TIDAC 01/30 0800 AC 02/01 SC 0918 Isosorbide 60 MG DAILY 01/31 0900 AC 02/01 Mononitrate PO 0855 Lorazepam 2 MG Q2 PRN 01/28 0545 DC IV Magnesium Oxide 400 MG ONE ONE 02/01 0900 DC 02/01 PO 02/01 0901 0922 Magnesium Oxide 400 MG ONE ONE 02/01 0415 DC 02/01 PO 02/01 0416 0427 Metoclopramide HCl 10 MG Q8 01/27 2200 AC 02/01 IV 0506 Metoprolol Succinate 50 MG DAILY 01/31 0900 AC 02/01 PO 0854 Omeprazole 40 MG DAILY AC 01/30 0700 AC 02/01 PO 0506 Phenol 2 SPRAY Q2P PRN 01/28 1115 AC 01/28 EXT 1212 Potassium Chloride 40 MEQ BID 01/31 1113 AC 02/01 PO 02/01 2101 0922 Ranolazine 1,000 MG BID 01/30 2100 AC 02/01 PO 0854 Sacubitril/Valsartan 1 TAB BID 02/01 09 AC 02/01 PO 0918 Tamsulosin HCl 0.4 MG DAILY 01/29 0900 AC 02/01 PO 0853 Warfarin Sodium 1 MG COUMADIN 1700 ONE 01/31 1700 DC 01/31 PO 01/31 1701 1702 Results Last 48 Hrs of Labs/Mics: Laboratory Tests 02/01/18 0700: Anion Gap 10, Estimated GFR > 60, BUN/Creatinine Ratio 15.6, Magnesium 1.5 L, PT 35.2 H, INR 3.19 H, APTT 66 H, CBC w Diff NO MAN DIFF REQ, RBC 3.65 L, MCV 94.8 H, MCH 31.7 H, MCHC 33.4, RDW 15.8 H, MPV 9.5, Gran % 79.3 H, Lymphocytes % 7.4 L, Monocytes % 11.9 H, Eosinophils % 0.7, Basophils % 0.7, Absolute Granulocytes 6.7 H, Absolute Lymphocytes 0.6 L, Absolute Monocytes 1.0 H, Absolute Eosinophils 0.1, Absolute Basophils 0.1 01/31/18 1445: APTT 72 H 06/30/18 0430: APTT Cancelled 01/31/18 0415: Anion Gap 10, Estimated GFR > 60, BUN/Creatinine Ratio 20.0, Phosphorus 2.9, Magnesium 1.5 L, PT 22.9 H, INR 2.09 H, CBC w Diff NO MAN DIFF REQ, RBC 3.64 L, MCV 94.7 H, MCH 31.8 H, MCHC 33.5, RDW 15.6 H, MPV 9.7, Gran % 77.4 H, Lymphocytes % 8.5 L, Monocytes % 13.4 H, Eosinophils % 0.5, Basophils % 0.2, Absolute Granulocytes 6.2, Absolute Lymphocytes 0.7 L, Absolute Monocytes 1.1 H, Absolute Eosinophils 0, Absolute Basophils 0 01/30/18 1630: APTT 78 H Assessment/Plan Continue telemetry? No
[2018-02-01 14:55] VITALS: BP 130/64
[2018-02-01 22:23] VITALS: BP 118/62
[2018-02-02 06:06] VITALS: BP 130/62
--- NOTE | 2018-02-02 06:31 | PN- Housestaff ---
Selina Plummer 02/02/18 0631: Subjective Follow-up For: aspiration pneumonia Tele-Events Since Last Visit: sinus pacing 66-73, event noted is 9 beat run of V. tach. Subjective: -Patient reports waking up 4-5 times last night to pass urine. urination was not associted with burning or lower abd pain. -pt reports coughing more at night. it was asso with zayas colored sputum, 1 tbsp 5- 6 X at night. -Patient reports that breathing was easy. No SOB, no orthopnea. -Last BM: last night. no complaints. -Ambulation: uses a cane and walker at home. Passes urine at the bedside at the hospital. Review of Systems Constitutional: Reports: see HPI. EENTM: Reports: see HPI. Cardiovascular: Reports: see HPI. Objective Last 24 Hrs of Vital Signs/I&O Vital Signs Date Time Temp Pulse Resp B/P B/P Pulse O2 O2 Flow FiO2 Mean Ox Delivery Rate 02/02 0606 98.3 84 18 130/62 92 Nasal 1.0L Cannula 02/02 0000 Nasal 1.0L Cannula 02/01 2223 98.7 80 18 118/62 94 Nasal 1.0L Cannula 02/01 2015 80 136/70 02/01 1633 94 Nasal 1.0L Cannula 02/01 1600 Nasal 2.0L Cannula 02/01 1455 98.1 80 20 130/64 95 Nasal Cannula 02/01 0855 76 126/64 02/01 0854 76 126/64 02/01 0854 76 126/64 02/01 0854 76 126/64 02/01 0853 76 126/64 02/01 0829 94 Nasal 1.0L Cannula 02/01 0800 Nasal 1.0L Cannula Intake & Output 02/02 0800 02/02 0000 02/01 1600 Intake Total 240 300 500 Output Total Balance 240 300 500 Intake, Oral 240 300 500 Number 2 2 1 Bowel Movements Patient 238 lb Weight Physical Exam General Appearance: Alert, Oriented X3, Cooperative Skin: No Rashes, No Breakdown, No Significant Lesion Skin Temp/Moisture Exam: Warm/Dry Sepsis Skin Exam (color): Normal for Ethnicity HEENT: Atraumatic, Mucous Membr. moist/pink Neck: Supple Cardiovascular: Regular Rate, Normal S1, Normal S2, No Murmurs Lungs: Normal Air Movement (ronchi B/L) Abdomen: Soft, No Tenderness Extremities: No Clubbing, No Cyanosis, No Edema Assessment/Plan Assessment: Patient is an 82-year-old male with a past medical history of hypertension, hyperlipidemia, diabetes mellitus, coronary artery disease, CABG, gastric bypass , and ICD in place. Who presented to us with aspiration after endoscopy. VS: Afebrile, pulse 84, respiratory rate 18, BP 130/62, pulse ox 92% on 1 L oxygen. Patient does not use oxygen at home. PLAN: #Gram-negative aspiration pneumonia(E. coli and Pseudomonas): He is on day 6 of 7 of Cipro coverage. He will be given cipro upon discharge today to complete his 7 days course. #INR: Today the patient's INR was 3.83 and PT was 42.3 so the patient is not receiving warfarin today. Per cardiology recommendations "we will continue outpatient cardiac meds with adjustment of Coumadin to get the target INR which is slightly supratherapeutic with stable hemoglobin." Pt will F/U with his 411 directory assistance operator 1 week after discharge. I spoke with patient's primary care physician Dr. Gar regarding his warfarin dosage. Dr. Gar prescribes the patient warfarin 21 mg per week; 3 mg per day. Pt is recommended to get the INR checked as an outpatient. #Potassium: His potassium was 3.4 today so we repleted it by giving 40 mEq once. #Magnesium: His mg was 1.6 today so we repleted it but given 40 mg once. #Oxygen therapy: Patient is receiving 1 L oxygen. He is satting at 92-95%. The plan is to taper it further. #Plan is to discharge the patient to a short-term rehab today. #DVT prophylaxis: Coumadin #Regular Diet #Full Code Problem List: 1. Aspiration pneumonia Pain Ratin Pain Location: none Pain Goal: Remain pain free Pain Plan: remain pain free Tomorrow's Labs & Rationales: INR/BEP Tere Salomon MD 02/02/18 1001: Attending MD Review Statement Attending Statement Attending MD Statement: examined this patient, discuss w/resident/PA/[employer]ING MACHINE OPERATOR, agreed w/resident/PA/[employer] SACKING MACHINE OPERATOR, reviewed EMR data (avail), discussed with nursing, discussed with case mgmt, reviewed images Attending Assessment/Plan: 82-year-old male multiple medical problems including coronary artery disease status post bypass, AICD, A. fib on Coumadin, diabetes, hypertension and chronic systolic heart failure. We are actively treating him for a gram-negative pneumonia with Escherichia coli and Pseudomonas in his sputum and he is on by mouth Cipro day 6 out of 7. He is on maximal medical therapy for his heart failure with contrast oh, amiodarone, Imdur, metoprolol, Lasix and Ranexa. At this point the plan is to pursue STR. We've tapered the oxygen down to 1 L and will taper it further.
[2018-02-02 07:25] LABS: ABSOLUTE BASOPHIL COUNT 0 /CUMM (0.0-0.2); ABSOLUTE EOSINOPHIL COUNT 0.1 /CUMM (0.0-0.7); ABSOLUTE GRANULOCYTE CT 7.3 /CUMM (1.4-6.5); ABSOLUTE LYMPH COUNT 0.7 /CUMM (1.2-3.4); ABSOLUTE MONOCYTE COUNT 1.1 /CUMM (0.10-0.60); BASOPHIL % 0.3 % (0.0-2.0); EOSINOPHIL % 1.2 % (0-5); GRANULOCYTE % 78.9 % (42.2-75.2); HEMATOCRIT 34.4 % (42-52); MEAN CORPUSCULAR HGB 31.6 PG (27.0-31.0); MEAN CORPUSCULAR HGB CONC 33.2 G/DL (33.0-37.0); MEAN CORPUSCULAR VOLUME 95.1 FL (80.0-94.0); MEAN PLATELET VOLUME 9.6 FL (7.4-10.4); PLATELET COUNT 203 /CUMM (130-400); RBC DISTRIBUTION WIDTH 16.2 % (11.5-14.5); RED BLOOD CELL CT 3.62 /CUMM (4.70-6.10); WHITE BLOOD CELL COUNT 9.2 /CUMM (4.8-10.8)
[2018-02-02 08:21] LABS: PT 42.3 SEC (9.4-12.5)
[2018-02-02] MEDS ORDERED: CIPRO500 M1 PO ×2 (09:54→10:00)
--- NOTE | 2018-02-02 10:34 | PN- Cardiology ---
Subjective Subjective: Patient denies any shortness of breath or chest pain. Still has a cough but remains afebrile. Objective Vital Signs and I&Os Vital Signs Date Time Temp Pulse Resp B/P B/P Pulse O2 O2 Flow FiO2 Mean Ox Delivery Rate 02/02 0951 64 100/50 / 0943 Nasal 1.0L Cannula 02/02 0835 92 Nasal 1.0L Cannula 02/02 0606 98.3 84 18 130/62 92 Nasal 1.0L Cannula 02/02 0000 Nasal 1.0L Cannula 02/01 2223 98.7 80 18 118/62 94 Nasal 1.0L Cannula 02/01 2015 80 136/70 07 1633 94 Nasal 1.0L Cannula 02/01 1600 Nasal 2.0L Cannula 02/01 1455 98.1 80 20 130/64 95 Nasal Cannula Intake & Output 02/02 1600 02/02 0800 02/02 0000 02/01 1600 02/01 0800 02/01 0000 Intake Total 240 300 500 200 330 Output Total Balance 240 300 500 200 330 Intake, IV 130 Intake, Oral 240 300 500 200 200 Number 2 2 1 Bowel Movements Patient 238 lb 238 lb Weight Weight Bed scale Measurement Method Physical Exam: General: no apparent distress. Alert Eyes: No obvious scleral icterus. HEENT: No jugular venous distention or abnormal jugular venous pulsations. Cardiovascular: Normal intensity S1/S2. Regular, pacemaker noted Respiratory: Coarse upper airway sounds Abdomen: Soft, nontender with no guarding or rebound tenderness. Musculoskeletal: No clubbing or cyanosis noted Skin: warm Neurologic: Alert Current Medications: Current Medications Sig/Franki Start time Last Medication Dose Route Stop Time Status Admin Albuterol Sulfate 3 ML EVERY 4 HRS/AWAKE 01/29 0800 AC 02/02 INH 0835 Albuterol Sulfate 3 ML Q4P PRN 01/27 1400 AC INH Amiodarone HCl 200 MG DAILY 01/30 09 AC 02/02 PO 0951 Aspirin Buffered 81 MG DAILY 01/28 1422 AC 02/02 PO 0951 Carbidopa/Levodopa 1 TAB BID 01/28 1422 AC 02/02 PO 0951 Ciprofloxacin 500 MG 0900,2100 01/29 1518 AC 02/02 PO 02/02 1803 0951 Finasteride 5 MG DAILY 01/28 1423 AC 02/01 PO 0855 Furosemide 40 MG DAILY 01/30 0900 AC 02/01 PO 0854 Insulin Aspart 0 TIDAC 01/30 0800 AC 02/02 SC 0816 Isosorbide 60 MG DAILY 01/31 09 AC 02/01 Mononitrate PO 0855 Magnesium Oxide 400 MG ONE ONE 02/02 830 DC 02/02 PO 02/02 0831 0951 Metoclopramide HCl 10 MG Q8 01/27 2200 AC 02/02 IV 0547 Metoprolol Succinate 50 MG DAILY 01/31 09 AC 02/01 PO 0854 Omeprazole 40 MG DAILY AC 01/30 07 AC 02/02 PO 0545 Phenol 2 SPRAY Q2P PRN 01/28 1115 AC 01/28 EXT 1212 Potassium Chloride 40 MEQ ONCE ONE 02/02 830 DC 02/02 PO 02/02 0831 0951 Potassium Chloride 40 MEQ ONCE ONE 02/01 1500 CAN PO 02/01 1501 Potassium Chloride 40 MEQ BID 01/31 1113 DC 02/01 PO 02/01 2101 0922 Ranolazine 1,000 MG BID 01/30 2100 AC 02/02 PO 0951 Sacubitril/Valsartan 1 TAB BID 02/01 09 AC 02/02 PO 0952 Tamsulosin HCl 0.4 MG DAILY 01/29 09 AC 02/01 PO 0853 Results Last 48 Hrs of Labs/Mics: Laboratory Tests 02/02/18644: Anion Gap 13, Estimated GFR > 60, BUN/Creatinine Ratio 15.0, Magnesium 1.6, PT 42.3 *H, INR 3.83 H, CBC w Diff NO MAN DIFF REQ, RBC 3.62 L, MCV 95.1 H, MCH 31.6 H, MCHC 33.2, RDW 16.2 H, MPV 9.6, Gran % 78.9 H, Lymphocytes % 7.2 L, Monocytes % 12.4 H, Eosinophils % 1.2, Basophils % 0.3, Absolute Granulocytes 7.3 H, Absolute Lymphocytes 0.7 L, Absolute Monocytes 1.1 H, Absolute Eosinophils 0.1, Absolute Basophils 0 02/01/18 07: Anion Gap 10, Estimated GFR > 60, BUN/Creatinine Ratio 15.6, Magnesium 1.5 L, PT 35.2 H, INR 3.19 H, APTT 66 H, CBC w Diff NO MAN DIFF REQ, RBC 3.65 L, MCV 94.8 H, MCH 31.7 H, MCHC 33.4, RDW 15.8 H, MPV 9.5, Gran % 79.3 H, Lymphocytes % 7.4 L, Monocytes % 11.9 H, Eosinophils % 0.7, Basophils % 0.7, Absolute Granulocytes 6.7 H, Absolute Lymphocytes 0.6 L, Absolute Monocytes 1.0 H, Absolute Eosinophils 0.1, Absolute Basophils 0.1 01/31/18 1445: APTT 72 H Recent Imaging Studies: Telemetry tracings were personally reviewed and show ventricular pacing with some periods of accelerated idioventricular rhythm Assessment/Plan Assessment/Plan 1. EGD complicated by aspiration requiring intubation 2. History of ischemic cardiomyopathy with decreased ejection fraction 3. History of coronary artery disease with prior bypass and known graft occlusions 4. History of biventricular AICD and PVCs 5. History of atrial fibrillation on Coumadin 6. History of hypertension 7. History of diabetes Denies dizziness. Still with a cough but remains afebrile without leukocytosis. Appears euvolemic on exam. Continue outpatient cardiac medications with adjustment of Coumadin to target INR which is slightly supra therapeutic with stable hemoglobin. Antibiotic course for aspiration pneumonia per the medical team. The patient should follow up in our office within 1 week of discharge. He is planned for STR. Familia Daniel MD [facility] Continue telemetry? No
[2018-02-02] MEDS ORDERED: COUMADIN3 M1 PO (11:19)
[2018-02-02 12:14] VITALS: BP 94/60
[2018-02-02] MEDS ORDERED: VESICARE10 MG PO (12:47)
[2018-02-02 13:00] VITALS: BP 100/58
== END 2018-02-02 13:35 | DRG 208 ==
LOC: GIS 07:53 → CRI 10:20 → 1NO 10:20 → CRI 01-28 08:49 → ENTRNSPT 01-29 22:19 → EDTRNSPTSTS 01-29 22:24 → EDTRNSPT 01-29 22:24 → CMPTRNSPT 01-29 22:39 → 1NO 01-29 22:44 → ENPENDDIS 02-02 11:59 → 1NO 02-02 13:35
PROVIDERS: Hospitalist; Internal Medicine; Internal Medicine Adolescent Medicine; Internal Medicine Critical Care Medicine; Internal Medicine Interventional Cardiology; Preventive Medicine Public Health & General Preventive Medicine; Student in an Organized Health Care Education/Training Program
PROC: 0BH17EZ Insertion of Endotracheal Airway into Trachea, Via Natural or Artificial Opening (ICD-10-PCS; principal; 2018-01-27)
PROC: 5A1935Z Respiratory Ventilation, Less than 24 Consecutive Hours (ICD-10-PCS; principal; 2018-01-27)
PROC: 0DB68ZX Excision of Stomach, Via Natural or Artificial Opening Endoscopic, Diagnostic (ICD-10-PCS; 2018-01-27)
PROC: 0DBA8ZX Excision of Jejunum, Via Natural or Artificial Opening Endoscopic, Diagnostic (ICD-10-PCS; 2018-01-27)
PROC: 0DB98ZX Excision of Duodenum, Via Natural or Artificial Opening Endoscopic, Diagnostic (ICD-10-PCS; 2018-01-27)
DX: J69.0 Pneumonitis due to inhalation of food and vomit (principal); J96.01 Acute respiratory failure with hypoxia; I50.22 Chronic systolic (congestive) heart failure; I47.2 Ventricular tachycardia; I48.2 Chronic atrial fibrillation; I11.0 Hypertensive heart disease with heart failure; Z95.1 Presence of aortocoronary bypass graft; G20 Parkinson's disease; I25.5 Ischemic cardiomyopathy; E11.43 Type 2 diabetes mellitus with diabetic autonomic (poly)neuropathy; K21.9 Gastro-esophageal reflux disease without esophagitis; Z90.49 Acquired absence of other specified parts of digestive tract; I25.2 Old myocardial infarction; J15.1 Pneumonia due to Pseudomonas; J15.5 Pneumonia due to Escherichia coli; E83.42 Hypomagnesemia; K31.84 Gastroparesis; E78.5 Hyperlipidemia, unspecified; Z98.0 Intestinal bypass and anastomosis status; I25.10 Atherosclerotic heart disease of native coronary artery without angina pectoris; N40.0 Benign prostatic hyperplasia without lower urinary tract symptoms; K59.00 Constipation, unspecified; Z86.718 Personal history of other venous thrombosis and embolism; Z86.711 Personal history of pulmonary embolism; Z79.84 Long term (current) use of oral hypoglycemic drugs; Z79.01 Long term (current) use of anticoagulants; Z87.891 Personal history of nicotine dependence
CPT/HCPCS: 1NP; CCU; 36415; 36592; 71045; 74230; 81001; 82436; 87040; 87070; 87086; 93005; 93010; 97110-GO; 97116-GO; 97161-GP; 97530-GO; J1644; J1815; J1940; J2060; J2765; J3010; J7040